=== PATIENT | male | born 1950 | race Caucasian/White ===

== ENCOUNTER 2019-09-15 08:03 | Outpatient (CLI) | payer MEDICARE, MEDICAID, SELFPAY ==
--- NOTE | ~2019-09-15 | CT_ITS ---
EXAMINATION: CT chest abdomen pelvis w con EXAM DATE: 09/15/2019 09:01 INDICATION: Lung cancer. Liver metastasis, history of mediastinal lymphadenopathy. TECHNIQUE: Spiral CT of the chest, abdomen and pelvis was performed following intravenous injection o f 100 mL Omnipaque 350. Axial, coronal and sagittal images were reviewed. Coronal maximum intensity pixel images of chest reviewed. The dose-length product (DLP) for this examination was 574.44 mGy-c m. The exposure was tailored according to patient size (auto mA exposure control), and iterative rec onstruction (ASIR) was used as additional dose reduction technique. There is no prior study for jamir raymundo. FINDINGS: CHEST: There is a right-sided Chemo-Port. Again there is left right upper lobe predominantly linear opacities, with infiltrative appearance into the left hilum, appearance consistent with treated lung cancer. Chronic lung mosaic attenuation and peripheral reticular nodular opacities and interlobular s eptal thickening unchanged, could be chronic interstitial lung disease and/or hypersensitivity pneumo nitis. There are no pleural or pericardial effusions. Tracheobronchial tree is patent. There is no mediastinal, hilar or axillary lymphadenopathy. There is no pneumothorax. Heart normal in size . There is mild coronary arterial calcification, arterial sclerosis. ABDOMEN PELVIS: Previously seen right liver lobe previously biopsied metastatic lesion is less conspi cuous, has decreased in size from about 1.4 cm to about 0.8 cm. Spleen, pancreas, adrenal glands are unremarkable. Gallbladder is unremarkable. No biliary obstruction. Portal and splenic veins are pa tent. Kidneys enhance symmetrically. There is no hydronephrosis. There is mild prostatomegaly. Th e bladder is unremarkable. There is no retroperitoneal or pelvic lymphadenopathy. There is mild sc attered arteriosclerotic disease. The appendix is normal. The stomach and small bowel are unremarkable. There is extensive sigmoid pre dominant colonic diverticulosis. There is no adjacent inflammatory change to suggest diverticulitis. No free intraperitoneal gas. There are no osteoblastic or osteolytic lesions identified. IMPRESSION: 1. Stable left lung, infiltrative hilar opacities consistent with treated lung cancer. 2. Small right liver lobe lesion with decrease in size. 3. Chronic lung findings unchanged. 4. Colonic diverticulosis. Reviewed, dictated and finalized at location A. SHER SCREWDOWN
[2019-09-15 08:47] LABS: Blood Urea Nitrogen 17 mg/dL (8-26); Estimated Glomerular Filt Rate > 60
== END 2019-09-15 08:04 | disposition home or self-care (01) ==
LOC: ANHIMG 08:07
PROVIDERS: PCP Internal Medicine; Visit Provider Internal Medicine Medical Oncology
DX: C34.92 Malignant neoplasm of unspecified part of left bronchus or lung (principal); K57.30 Diverticulosis of large intestine without perforation or abscess without bleeding; R91.8 Other nonspecific abnormal finding of lung field
CPT/HCPCS: 71260; 74177; Q9967

== ENCOUNTER 2019-12-06 06:39 | Outpatient (CLI) | payer MEDICARE, MEDICAID, SELFPAY ==
--- NOTE | ~2019-12-06 | CT_ITS ---
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 The dose-length product (DLP) was 512.07 mGy-cm. Automated exposure control and iterative reconstruction technique were employed. COMPARISON: 09/15/2019, 04/26/2019 FINDINGS: CHEST CT: There are chronic, unchanged reticular opacities in the left upper lobe and left perihilar region wit h associated bronchiectasis. There is an unchanged 5 mm nodule of the right upper lobe. Scattered bob cified nodules are consistent with old granulomatous disease. There is mild emphysema. Dependent atel ectasis is noted. A right internal jugular Port-A-Cath ends with its tip in the proximal right atrium . ABDOMEN/PELVIS CT: A 1.2 x 0.7 cm hypoattenuating lesion of the right hepatic lobe has an appearance similar to the 2019 comparison (image 121). Punctate calcifications in the liver and spleen likely reflect old granuloma tous disease. The pancreas, gallbladder, and adrenal glands are normal. The kidneys are unremarkable. No pathologically enlarged abdominal or pelvic lymph nodes are identified. There is no free intraper itoneal gas or evidence of bowel obstruction. Colonic diverticulosis is present without evidence of d iverticulitis. A circumaortic left renal vein is noted. There is moderate lumbar spondylosis. There i s a small fat-containing umbilical hernia. IMPRESSION: 1. Stable chronic changes of left upper lobe consistent with treated malignancy. 2. Chronic right hepatic lobe mass without significant change, consistent with biopsy-proven metastat ic disease. Reviewed, dictated and finalized at location A. IMPRESSION: 1. Stable chronic changes of left upper lobe consistent with treated malignancy . 2. Chronic right hepatic lobe mass without significant change, consistent with biopsy-proven metastatic disease.
[2019-12-06 07:12] LABS: Estimated Glomerular Filt Rate > 60
== END 2019-12-06 06:40 | disposition home or self-care (01) ==
LOC: ANHIMG 06:47
PROVIDERS: PCP Internal Medicine; Visit Provider Internal Medicine Medical Oncology
DX: C34.92 Malignant neoplasm of unspecified part of left bronchus or lung (principal); C78.7 Secondary malignant neoplasm of liver and intrahepatic bile duct; R16.0 Hepatomegaly, not elsewhere classified
CPT/HCPCS: 36415; 71260; 74177; Q9967

== ENCOUNTER 2020-03-02 06:30 | Outpatient (CLI) | payer MEDICARE, MEDICAID, SELFPAY ==
--- NOTE | ~2020-03-02 | CT_ITS ---
EXAMINATION: CT chest abdomen pelvis w con DATE: 03/02/2020 07:28 INDICATION: Restaging small cell left lung carcinoma TECHNIQUE: Computed tomography (CT) of the chest, abdomen, and pelvis was performed with 100 cc Omnip aque 350 intravenous contrast. Automated exposure control and iterative reconstruction technique were employed. Exam dose: 476.51 mGy-cm total exam DLP. COMPARISON: 12/06/2019 CT chest abdomen pelvis FINDINGS: CHEST CT: Right Port-A-Cath catheter in superior vena cava, terminating at upper right atrium. The lungs are unchanged since 12/06/2019, including extensive left upper lobe and left perihilar scarr ing. Mild emphysematous changes are noted. Stable 5 mm right upper lobe opacity. Mild chronic patchy groundglass density in the lower lobes, likely due to small airways disease. [employer]ified [employer]ician rosa increased reticular markings of the lungs. No interval pulmonary infiltrate or consolidation or pulmonary mass lesion since 12/06/2019 is detecte d. No interval hilar or mediastinal mass lesion or lymphadenopathy. Again noted is evidence of old pulmo nary granulomatous disease as well as calcified hepatic and splenic granulomas. No thoracic aortic aneurysm or dissection. Normal heart size. No pericardial or pleural effusion. ABDOMEN/PELVIS CT: No interval change of the proximal a 7 x 12 mm hypoattenuating lesion of the right hepatic lobe since 12/06/2019. No interval hepatic space-occupying mass lesion is evident. Normal adrenal glands. The gallbladder is present. No bile duct or pancreatic duct dilatation. No hackett creatic mass lesion or calcification. Normal splenic size. No renal mass lesion or urinary tract calculus or hydroureteronephrosis. The urinary bladder is unrem arkable. There is prostate enlargement and calcification. Normal caliber of the abdominal aorta. No intraperitoneal or retroperitoneal or pelvic mass lesion or adenopathy or ascites. There are numerous diverticula of the sigmoid and descending colon and to a lesser extent right colon . No evidence of diverticulitis. Normal appendix. No bowel obstruction, bowel wall thickening, pneuma tosis or intraperitoneal free air. IMPRESSION: No significant change since 12/06/2019; no evidence of recurrence or new or increased met astasis Reviewed, dictated and finalized at Location A. Reviewed, dictated and finalized at location B. IMPRESSION: No significant change since 12/06/2019; no evidence of recurrence o r new or increased metastasis
[2020-03-02 07:16] LABS: Estimated Glomerular Filt Rate > 60
== END 2020-03-02 06:31 | disposition home or self-care (01) ==
PROVIDERS: PCP Internal Medicine; Visit Provider Internal Medicine Medical Oncology
DX: C34.92 Malignant neoplasm of unspecified part of left bronchus or lung (principal)
CPT/HCPCS: 36415; 71260; 74177; Q9967

== ENCOUNTER 2020-03-22 14:44 | Emergency (ER) | payer MEDICARE, MEDICAID, SELFPAY ==
--- NOTE | ~2020-03-22 | CT_ITS ---
EXAMINATION: CT abdomen pelvis wo con DATE: 03/22/2020 18:07 INDICATION: Dysuria. Urinary retention. TECHNIQUE: Computed tomography (CT) of the abdomen and pelvis was performed without intravenous contr ast. The dose-length product was 380.37 mGy-cm. Automated exposure control and iterative reconstructi on technique were employed. COMPARISON: 03/02/2020 FINDINGS: Patchy groundglass opacities of the lung bases. Heart size normal. No significant pleural o r pericardial effusion. There are calcified granulomas in the liver and spleen. The pancreas, adrenal glands and kidneys are unremarkable. Gallbladder is present. There is mildly pr ominent retroperitoneal lymph nodes unchanged, likely reactive. Nonobstructive bowel gas pattern. Enl arged prostate gland. Colonic diverticulosis without evidence for diverticulitis. Normal appendix. Mo derate lower thoracic and lumbar spine spondylosis. IMPRESSION: 1. Patchy bibasilar groundglass opacities. Considerations include infectious/inflammatory etiologies and respiratory bronchiolitis. 2: Mildly prominent retroperitoneal lymph nodes, likely reactive. Reviewed, dictated and finalized at location A. IMPRESSION: 1. Patchy bibasilar groundglass opacities. Considerations include infectious/in flammatory etiologies and respiratory bronchiolitis. 2: Mildly prominent retroperitoneal lymph nodes, likely reactive.
[2020-03-22 14:46] VITALS: BP 123/64; PULSE 102; RESP 18; TEMP 36.2; O2SAT 98
[2020-03-22 15:39] LABS: Basophils Percent Auto 0.5 % (0.2-1.2); Eosinophils Absolute Auto 0.1 K/mm3 (0-0.3); Eosinophils Percent Auto 1.1 % (0-4.4); Hematocrit 39.8 % (42.0-52.0); Hemoglobin 14.1 g/dL (14.0-18.0); Immature Granulocyte Absolute 0.01 K/mm3 (0.00-0.031); Immature Granulocyte Percent A 0.2 % (0-0.5); Lymphocytes Absolute Auto 0.75 K/mm3 (0.9-3.2); Lymphocytes Percent Auto 13.4 % (18.3-44.2); Mean Corpuscular HGB Conc 35.4 g/dl (32-36); Mean Corpuscular Hemoglobin 32.6 pg (26-34); Mean Corpuscular Volume 92.1 fl (80-100); Mean Platelet Volume 9.1 fl (7.4-10.4); Monocytes Absolute Auto 0.7 K/mm3 (0.1-0.6); Monocytes Percent Auto 11.6 % (2.6-8.5); Neutrophils Absolute Auto 4.1 K/mm3 (1.3-6.7); Neutrophils Percent Auto 73.2 % (45.5-73.1); Platelet Count Result 140 k/mm3 (150-375); Red Blood Count 4.32 M/mm3 (4.6-6.20); Red Cell Distribution Width 12.6 % (11.5-14.5); White Blood Count 5.6 K/mm3 (4.5-10.0)
--- NOTE | 2020-03-22 16:26 | PC.NURSE ---
called lab to add on
[2020-03-22 16:34] LABS: Add Urine Microscopic? YES; Appearance Urine Clear (Clear); Bilirubin Urine Negative (Negative); Blood Urine 2+ (Negative); Color Urine Yellow (Yellow); Glucose Urine UA Negative (Negative); Ketones Urine Negative (Negative); Leukocyte Esterase Ur Trace LEU/UL (Negative); Mucus Urine Moderate /lpf; Nitrate Urine Negative (Negative); Protein Urine 1+ mg/dL (Negative); RBC Urine >75 /hpf (0-2); Specific Grav Ur 1.027 (1.001-1.035); Squamous Epithelial Cell Urine Rare /hpf (Few); WBC Urine 21-30 /hpf
[2020-03-22 16:36] LABS: Alanine Aminotransferase 11 U/L (4-50); Alkaline Phosphatase 81 U/L (38-126); Anion Gap 11 mmol/L (8-16); Aspartate Amino Transferase 20 U/L (17-59); Bilirubin,Total 0.3 mg/dL (0.2-1.3); Blood Urea Nitrogen 21 mg/dL (9-20); Carbon Dioxide 24 mmol/L (22-30); Chloride 98 mmol/L (98-107); Estimated CRCL calculation 48 ml/min; Estimated Glomerular Filt Rate 60; Glucose 118 mg/dL (75-110); Potassium 3.9 mmol/L (3.4-5.0); Sodium 133 mmol/L (137-145)
[2020-03-22] MEDS: SODIUM CHLORIDE 0.9% IV 1,000 ML 999 ML IV CONT (16:36)
--- NOTE | 2020-03-22 16:52 | ED.ABDPAIN ---
HPI - Abdominal Pain General Chief Complaint: Urogenital-Male <TANNER Nunes Last Filed: 03/22/20 18:56> Stated Complaint: painful urination <TANNER Nunes Last Filed: 03/22/20 18:56> Time Seen by Provider: 03/22/20 15:04 <TANNER Nunes Last Filed: 03/22/20 18:56> Source: patient <TANNER Nunes Last Filed: 03/22/20 18:56> Mode of arrival: ambulatory <TANNER Nunes Last Filed: 03/22/20 18:56> Limitations: no limitations <TANNER Nunes Last Filed: 03/22/20 18:56> History of Present Illness HPI narrative: Patient is a 69-year-old male who presents to emergency department for burning with urination that is been present today was diagnosed with shingles involving the penis and scrotum and is currently on medications for this but notes now whenever he urinates he has extreme burning with urination. Patient is also currently being treated for small cell lung cancer with chemotherapy. Patient denies fever chills nausea vomiting. Patient has been taking the pain medications antivirals with minimal improvement and notes that the symptoms worse with urination <TANNER Nunes Last Filed: 03/22/20 18:56> Related Data Home Medications: Home Medications Medication Instructions Recorded Confirmed bupropion HCl 150 mg PO DAILY 03/22/20 ondansetron HCl 4 mg PO Q8H PRN 03/22/20 tamsulosin 0.4 mg PO DAILY 03/22/20 temozolomide 140 mg PO DAILY 03/22/20 tramadol 50 mg PO Q8H PRN 03/22/20 valacyclovir 1,000 mg PO TID 03/22/20 <TANNER Nunes Last Filed: 03/22/20 18:56> Allergies/Adverse Reactions: Allergies Allergy/AdvReac Type Severity Reaction Status Date / Time oxycodone AdvReac Unknown Itching Verified 03/22/20 14:58 <TANNER Nuens Last Filed: 03/22/20 18:56> Review of Systems Review of Systems: All systems reviewed & are unremarkable except as noted in HPI and below <Ti Awad PA-C - Last Filed: 03/22/20 18:56> [facility] Past Medical History Medical History: Medical History Small cell lung cancer <Ti Awad PA-C - Last Filed: 03/22/20 18:56> Social History Social History: Social History (Updated 03/22/20 @ 16:53 by Ti Awad PA-C) Smoking status: Former smoker <Ti Awad PA-C - Last Filed: 03/22/20 18:56> Exam Narrative: Exam Narrative: GENERAL: Well-appearing, well-nourished, and in no acute distress. HEAD: Normocephalic, atraumatic. EYES: PERRLA and EOMI. ENT: Nares clear, no rhinorrhea or epistaxis. Mucous membranes moist. CHEST: Clear to auscultation. No respiratory distress. No wheezes rales or rhonchi HEART: Regular rate and rhythm. No murmur heard. Normal peripheral pulses. ABDOMEN: Soft, nontender, nondistended EXTREMITIES: Normal range of motion. No edema. SKIN: Warm, dry, patient with herpetic rash of the scrotum penis and perianal region NEURO: No focal deficits. Alert and oriented x3. Cranial nerves II through XII grossly intact PSYCH: Normal mood and affect. <Ti Awad PA-C - Last Filed: 03/22/20 18:56> Course Course Emergency Course: Patient in the room at this time resting comfortably aware of case findings treatment plan and diagnosis agreeing to follow-up with primary care tomorrow and oncology patient currently in the room in no distress afebrile nontoxic-appearing given instructions on pain management for his shingles as well as constipation and urinary tract infection provided with reasons to return <Ti Awad PA-C - Last Filed: 03/22/20 18:56> Vital Signs Vital signs: Vital Signs Temperature 97.2 F L 03/22/20 14:46 Pulse Rate 102 H 03/22/20 14:46 Respiratory Rate 18 03/22/20 14:46 Blood Pressure 123/64 03/22/20 14:46 Pulse Oximetry 98 03/22/20 14:46 Temperature 97.2 F L 03/22/20 14:46
[2020-03-22 18:30] VITALS: PULSE 80; RESP 20; O2SAT 98
[2020-03-22 19:29] VITALS: BP 116/74; PULSE 82; RESP 20; O2SAT 98
== END 2020-03-22 19:31 | disposition home or self-care (01) ==
PROVIDERS: Emergency Medicine Emergency Medical Services; Emergency Provider General Practice; PCP Internal Medicine
DX: N39.0 Urinary tract infection, site not specified (principal); B02.9 Zoster without complications; Z85.118 Personal history of other malignant neoplasm of bronchus and lung
CPT/HCPCS: 36415; 74176; 80053; 81001; 85025; 87086; 96361; 96365; 99284; J0131; J7030

== ENCOUNTER 2020-03-25 22:59 | Emergency (ER) | payer MEDICARE, MEDICAID, SELFPAY ==
[2020-03-25 23:04] VITALS: BP 122/72; PULSE 94; RESP 20; TEMP 36.4; O2SAT 98
[2020-03-25 23:22] LABS: Add Urine Microscopic? YES; Appearance Urine Clear (Clear); Bacteria Urine Trace /hpf; Bilirubin Urine Negative (Negative); Blood Urine Negative (Negative); Color Urine Amber (Yellow); Glucose Urine UA Negative (Negative); Ketones Urine Negative (Negative); Leukocyte Esterase Ur Negative LEU/UL (Negative); Mucus Urine Rare /lpf; Nitrate Urine Positive (Negative); Protein Urine Negative (Negative); Specific Grav Ur 1.011 (1.001-1.035); Squamous Epithelial Cell Urine Rare /hpf (Few); WBC Urine 0-3 /hpf
[2020-03-26 00:09] VITALS: BP 126/76; PULSE 75; RESP 20; O2SAT 100
--- NOTE | 2020-03-26 01:18 | ED.MALEGU ---
HPI - Male Genitourinary General Chief complaint: Urogenital-Male Stated complaint: shingles, uti Time Seen by Provider: 03/26/20 01:01 Source: patient Mode of arrival: ambulatory Limitations: no limitations History of Present Illness HPI Narrative: This patient is a 69 year old male who presents for evaluation of difficulty urinating. He reports he has been having difficulty urinating for 5 days . He is having to strain to urinate and he is only urinating a small amount. He is able to get more urine out if he pushes on his abdomen. He has been unable to sleep because he is constantly having to get up to use the restroom. He is burning with urination so he has having worsening pain. He was diagnosed with shingles involving his scrotum and rectum. He also states his abdomen feels bloated. He denies fever or chills. He also had a BM today. Related Data Home Medications Medication Instructions Recorded Confirmed bupropion HCl 150 mg PO DAILY 03/22/20 ondansetron HCl 4 mg PO Q8H PRN 03/22/20 tamsulosin 0.4 mg PO DAILY 03/22/20 temozolomide 140 mg PO DAILY 03/22/20 tramadol 50 mg PO Q8H PRN 03/22/20 valacyclovir 1,000 mg PO TID 03/22/20 Allergies Allergy/AdvReac Type Severity Reaction Status Date / Time oxycodone AdvReac Unknown Itching Verified 03/25/20 23:07 Review of Systems Review of Systems: All systems reviewed & are unremarkable except as noted in HPI and below Constitutional: Constitutional: Denies chills Gastrointestinal: Gastrointestinal: Reports abdominal pain and Reports constipation Genitourinary: Genitourinary: Denies hematuria, Reports oliguria and Reports testicular pain [facility] Past Medical History Medical History (Updated 03/26/20 @ 02:26 by Teresa Mathur MD) Small cell lung cancer Surgical History Surgical History (Updated 03/26/20 @ 01:26 by Teresa Mathur MD) Hx of knee surgery Social History Social History (Updated 03/22/20 @ 16:53 by Ti Awad PA-C) Smoking status: Former smoker Exam Const: General: cooperative, healthy appearing, alert, awake, Physically active and uncomfortable Orientation/consciousness: oriented to person, oriented to place and oriented to time Limitations: no limitations HENMT: Head: normocephalic and atraumatic Face and sinus: face symmetric Throat: posterior oropharynx normal Chest: Chest palpation & inspection: normal inspection of the chest Resp: Effort & Inspection: normal respiratory effort and able to speak in complete sentences GI: GI Palp: Yes abdominal tenderness, Yes Soft to palpation and Yes Tenderness to palpation present (GI) (suprapubic with distended bladder) : Penis: Yes vesicles (on penile shaft and on scrotum) Meatus: meatus normal Course Reevaluation(s) Reevaluation #1: PAtient reports he feels better. His pain has resolved after lal catheter placement. He will continue keflex, flomax and valtrex. I also discussed he will follow up with a urologist. Date: 03/26/20 Time: 02:23 Vital Signs Vital signs: Vital Signs Temperature 97.5 F L 03/25/20 23:04 Pulse Rate 94 03/25/20 23:04 Respiratory Rate 20 03/25/20 23:04 Blood Pressure 122/72 03/25/20 23:04 Pulse Oximetry 98 03/25/20 23:04 Temperature 97.5 F L 03/25/20 23:04 Pulse Rate 72 03/26/20 02:39 Respiratory Rate 14 03/26/20 02:39 Blood Pressure 128/66 03/26/20 02:39 Pulse Oximetry 98 03/26/20 02:39 MDM - Male Genitourinary Lab Data Labs: Lab Results 03/25/20 Range/Units 23:10 Urine Color Yvonne (Yellow) Urine Appearance Clear (Clear) Urine pH 6.0 (5.0-9.0) Ur Specific [place] 1.011 (1.001-1.035) Urine Protein Negative (Negative) mg/dL Urine Glucose (UA) Negative (Negative) mg/dL Urine Ketones Negative (Negative) mg/dL Ur Blood (Man) Negative (Negative) Urine Nitrate Positive H (Negative) Urine Bilirubin Negative (Negative) Urine Urobilinogen 2.0 H (<2
[2020-03-26 01:57] VITALS: BP 124/68; PULSE 88; RESP 15; O2SAT 97
[2020-03-26] MEDS: ONDANSETRON HCL ODT 4 MG TABLET PO (01:57)
[2020-03-26 02:39] VITALS: BP 128/66; PULSE 72; RESP 14; O2SAT 98
--- NOTE | 2020-03-26 02:40 | PC.NURSE ---
total of 1200 ml drained via catheter pt reports relief
--- NOTE | 2020-03-26 02:53 | PC.NURSE ---
leg bag attached prior to leaving ED, instructions given to the pt agreeable to follow up with dr gordon on friday
== END 2020-03-26 02:40 | disposition home or self-care (01) ==
PROVIDERS: Family Medicine; Emergency Provider General Practice; PCP Internal Medicine
DX: R33.9 Retention of urine, unspecified (principal); B02.9 Zoster without complications; Z87.891 Personal history of nicotine dependence; Z85.118 Personal history of other malignant neoplasm of bronchus and lung
CPT/HCPCS: 51702; 81001; 99283; A9270

== ENCOUNTER 2020-04-06 12:12 | Emergency (ER) | payer MEDICARE, MEDICAID, SELFPAY ==
[2020-04-06] VITALS (7 sets, daily range): BP systolic 108–128; BP diastolic 55–87; PULSE 71–90; RESP 14–27; TEMP 36.9; O2SAT 100
--- NOTE | ~2020-04-06 | XR_ITS ---
XR chest 2V DATE: 04/06/2020 13:04 INDICATION: Weakness. Nausea. TECHNIQUE: Upright AP and left lateral views COMPARISON: 03/02/2020 CT chest abdomen pelvis FINDINGS: Right Port-A-Cath catheter tip overlies the upper right atrium. Prominent discoid atelectasis and/or scarring of the left upper lobe. There is otherwise no pulmonary infiltrate or consolidation. No pleural effusion or pulmonary vascular congestion or pneumothorax. Degenerative changes of the thoracic spine. No suspicious osteolytic or osteoblastic lesions are iden tified. IMPRESSION: Probable left upper lobe scarring; atelectasis, infiltrate or pulmonary malignancy are no t definitively excluded. Consider PET/CT imaging as clinically appropriate. Reviewed, dictated and finalized at location A. IMPRESSION: Probable left upper lobe scarring; atelectasis, infiltrate or pulmo nary malignancy are not definitively excluded. Consider PET/CT imaging as clini sergei appropriate.
--- NOTE | ~2020-04-06 | CT_ITS ---
EXAMINATION: CT abdomen pelvis w con DATE: 04/06/2020 14:15 INDICATION: Left abdominal tenderness, pain TECHNIQUE: Computed tomography (CT) of the abdomen and pelvis was performed with 100 cc Omnipaque 350 intravenous contrast. Automated exposure control and iterative reconstruction technique were employe d. Exam dose: 371.05 mGy-cm total exam DLP. COMPARISON: 03/22/2020 CT abdomen pelvis FINDINGS: Normal heart size. Coronary artery atherosclerotic calcification. No pleural or pericardial effusion. No consolidation at the lung bases. There are numerous calcified hepatic and splenic granulomas consistent with old granulomatous disease in addition to bilateral calcified pulmonary granulomas and hilar and subcarinal calcified lymph nod es. There are occasional scattered subcentimeter hepatic lesions, too small to definitively characterize, likely small cysts. The liver, spleen, pancreas, and adrenal glands and kidneys are otherwise unremarkable. The gallbladd er is present. No bile duct or pancreatic duct dilatation. Normal caliber of the abdominal aorta. No intraperitoneal or retroperitoneal or pelvic mass lesion or adenopathy or ascites. Normal appendix. There are numerous diverticula of the sigmoid and descending colon; no CT evidence of diverticulitis. There is prostate enlargement. There is diffuse thickening of the urinary bladder, likely due to blad alana outlet obstruction as a result. There is normal caliber of the abdominal aorta. No intraperitoneal or retroperitoneal or pelvic mass lesion or adenopathy or ascites. There are degenerative changes of the thoracic and lumbar spine. No suspicious osteolytic or osteobl astic lesions are noted. IMPRESSION: Old granulomatous disease Probable small hepatic cysts, too small to definitively characterize Diverticulosis of the left colon; no CT evidence of diverticulitis Diffuse moderate thickening and urinary bladder wall, likely due to prostate enlargement Reviewed, dictated and finalized at Location A. Reviewed, dictated and finalized at location A. IMPRESSION: Old granulomatous disease Probable small hepatic cysts, too small to definitively characterize Diverticulosis of the left colon; no CT evidence of diverticulitis Diffuse moderate thickening and urinary bladder wall, likely due to prostate en largement
--- NOTE | 2020-04-06 12:14 | ECG_ITS ---
Measurements Intervals [place] Rate: 84 P: 68 MT: 170 QRS: 6 QRSD: 92 T: 49 QT: 339 QTc: 401 Interpretive Statements SINUS RHYTHM INCOMPLETE RIGHT BUNDLE BRANCH BLOCK BORDERLINE ECG Electronically Signed On 04-06-2020 12:56:27 CDT by Garret Davis D.O.
--- NOTE | 2020-04-06 12:32 | ED.WEAKNESS ---
HPI - Weakness General Chief complaint: Weakness Stated complaint: Nausea/Weakness Time Seen by Provider: 04/06/20 12:17 Source: patient and family Mode of arrival: ambulatory Limitations: no limitations History of Present Illness HPI Narrative: This patient is a 69 year old male with history small cell lung cancer who presents with complaint of generalized weakness and nausea. He states for the past couple of weeks he has been having constant nausea, so he is unable to eat or drink. He called Dr. Prabhakar and it was recommended for him to come to ER for dehydration. He states he only vomited a few days ago but he has not had any vomiting since. He has not had a bowel movement in 3 days. HE denies abdominal pain, chest pain, cough or sob. He also denies headache or dizziness. He is performing straight catheterization 3 times daily due to urinary retention with BPH. He had a lal catheter placed 03/26/20 and it was removed 04/03/20. Related Data Home Medications Medication Instructions Recorded Confirmed bupropion HCl 150 mg PO DAILY 03/22/20 ondansetron HCl 4 mg PO Q8H PRN 03/22/20 tamsulosin 0.4 mg PO DAILY 03/22/20 temozolomide 140 mg PO DAILY 03/22/20 tramadol 50 mg PO Q8H PRN 03/22/20 valacyclovir 1,000 mg PO TID 03/22/20 pantoprazole 40 mg PO 04/06/20 Allergies Allergy/AdvReac Type Severity Reaction Status Date / Time oxycodone AdvReac Unknown Itching Verified 03/25/20 23:07 Review of Systems Review of Systems: All systems reviewed & are unremarkable except as noted in HPI and below Constitutional: Constitutional: Denies chills, Reports fatigue and Denies fever(s) Cardiovascular: Cardiovascular: Denies chest pain Respiratory: Respiratory: Denies cough and Denies dyspnea Gastrointestinal: Gastrointestinal: Denies abdominal pain, Reports constipation, Reports nausea and Reports vomiting Genitourinary: Genitourinary: Denies oliguria and Reports genital lesions PMFSH Past Medical History Medical History (Updated 04/06/20 @ 15:19 by Teresa Mathur MD) Small cell lung cancer Urinary retention Surgical History Surgical History (Updated 03/26/20 @ 01:26 by Tereas Mathur MD) Hx of knee surgery Social History Social History (Updated 03/22/20 @ 16:53 by Ti Awad PA-C) Smoking status: Former smoker Gender identity (if verbalized by the patient): Male Exam Const: General: no acute distress and alert Orientation/consciousness: patient oriented x3 HENMT: Head: normocephalic and atraumatic Face and sinus: face symmetric Throat: posterior oropharynx normal, tonsils normal and uvula midline Eyes: EOM: EOMs intact bilaterally Resp: Effort & Inspection: normal respiratory effort, no retractions and no use of accessory muscles Auscultation: clear to auscultation bilaterally Cardio: Rate: regular rate Rhythm: regular rhythm Heart sounds: no murmurs GI: GI Palp: Yes Soft to palpation, Yes Tenderness to palpation present (GI) (LUQ ), No Guarding due to palpation present (GI) and No Rigid due to palpation : General: Yes no CVA tenderness Neuro: General: patient oriented x3, moves all extremities and CN's II-XI intact bilaterally Extrem: General: normal to inspection Psych: Mental Status: mental status grossly normal Affect: normal affect Course Reevaluation(s) Reevaluation #1: PAtient reports he feels better. He has no fever or elevated wbc. He does have a UTI so I will place on antibiotics. Date: 04/06/20 Time: 15:16 Consultations Consultation #1: I Discussed case with Dr. Mccoy who agrees patient can continue to self cath and send out on antibiotics. Date: 04/06/20 Time: 15:17 Vital Signs Vital signs: Vital Signs Temperature 98.4 F 04/06/20 12:16 Pulse Rate 86 04/06/20 12:16 Respiratory Rate 14 04/06/20 12:16 Blood Pressure 116/76 04/06/20 12:16 Pulse Oximetry 100 04/06/20 12:16 Temperature 98.4 F 04/06/20
[2020-04-06 12:33] LABS: Basophils Absolute Auto 0.1 K/mm3 (0.0-0.1); Basophils Percent Auto 0.8 % (0.2-1.2); Eosinophils Absolute Auto 0.3 K/mm3 (0-0.3); Hematocrit 39.4 % (42.0-52.0); Hemoglobin 13.6 g/dL (14.0-18.0); Immature Granulocyte Absolute 0.04 K/mm3 (0.00-0.031); Immature Granulocyte Percent A 0.4 % (0-0.5); Lymphocytes Absolute Auto 0.92 K/mm3 (0.9-3.2); Lymphocytes Percent Auto 10.2 % (18.3-44.2); Mean Corpuscular HGB Conc 34.5 g/dl (32-36); Mean Corpuscular Hemoglobin 32.3 pg (26-34); Mean Corpuscular Volume 93.6 fl (80-100); Mean Platelet Volume 8.9 fl (7.4-10.4); Monocytes Absolute Auto 0.6 K/mm3 (0.1-0.6); Monocytes Percent Auto 6.1 % (2.6-8.5); Neutrophils Absolute Auto 7.2 K/mm3 (1.3-6.7); Neutrophils Percent Auto 79.5 % (45.5-73.1); Platelet Count Result 176 k/mm3 (150-375); Red Blood Count 4.21 M/mm3 (4.6-6.20); Red Cell Distribution Width 12.9 % (11.5-14.5)
[2020-04-06 12:47] LABS: Alanine Aminotransferase 12 U/L (4-50); Alkaline Phosphatase 82 U/L (38-126); Anion Gap 6 mmol/L (8-16); Aspartate Amino Transferase 15 U/L (17-59); Bilirubin,Total 0.5 mg/dL (0.2-1.3); Blood Urea Nitrogen 16 mg/dL (9-20); Calcium 9.2 mg/dL (8.4-10.2); Carbon Dioxide 27 mmol/L (22-30); Chloride 102 mmol/L (98-107); Estimated CRCL calculation 64 ml/min; Estimated Glomerular Filt Rate > 60; Glucose 119 mg/dL (75-110); Potassium 3.7 mmol/L (3.4-5.0); Sodium 135 mmol/L (137-145)
[2020-04-06] MEDS: ONDANSETRON INJ 4 MG/2 ML VIAL IV PUSH (12:52)
[2020-04-06] MEDS: LACTATED RINGERS 1,000 ML 999 ML IV CONT (12:52)
[2020-04-06 13:02] LABS: Lipase 119 U/L (23-300); Magnesium 1.8 mg/dL (1.6-2.3)
[2020-04-06 13:04] LABS: Add Urine Microscopic? YES; Appearance Urine Cloudy (Clear); Bacteria Urine Trace /hpf; Bilirubin Urine Negative (Negative); Blood Urine 1+ (Negative); Color Urine Yellow (Yellow); Glucose Urine UA Negative (Negative); Ketones Urine Negative (Negative); Leukocyte Esterase Ur 3+ LEU/UL (Negative); Nitrate Urine Negative (Negative); Protein Urine 2+ mg/dL (Negative); RBC Urine 51-75 /hpf (0-2); Specific Grav Ur 1.016 (1.001-1.035); Squamous Epithelial Cell Urine Rare /hpf (Few); Urobilinogen Urine Negative mg/dL (<2.0); WBC Clumps Urine Present /HPF; WBC Urine >75 /hpf
[2020-04-06] MEDS: PROMETHAZINE HCL 25 MG/ML AMPUL 12.5 MG IV PUSH (13:34)
[2020-04-06] MEDS: HEPARIN SOD FLUSH 500 UNITS/5 ML SYRINGE (15:42)
== END 2020-04-06 16:15 | disposition home or self-care (01) ==
PROVIDERS: Emergency Medicine; Emergency Provider General Practice; PCP Internal Medicine
DX: N30.90 Cystitis, unspecified without hematuria (principal); R11.0 Nausea; N40.1 Benign prostatic hyperplasia with lower urinary tract symptoms; R33.8 Other retention of urine; Z87.891 Personal history of nicotine dependence; Z85.118 Personal history of other malignant neoplasm of bronchus and lung
CPT/HCPCS: 36415; 51701; 71046; 74177; 80053; 81001; 83690; 83735; 85025; 87086; 87088; 93005; 96361; 96365; 96375; 99284; J0696; J2405; J2550; J7120; Q9967

== ENCOUNTER 2020-06-12 08:03 | Outpatient (CLI) | payer MEDICARE, MEDICAID, SELFPAY ==
[2020-06-12 08:50] LABS: Basophils Absolute Auto 0.1 K/mm3 (0.0-0.1); Basophils Percent Auto 1.2 % (0.2-1.2); Eosinophils Absolute Auto 0.4 K/mm3 (0-0.3); Eosinophils Percent Auto 7.6 % (0-4.4); Hemoglobin 13.4 g/dL (14.0-18.0); Immature Granulocyte Absolute 0.02 K/mm3 (0.00-0.031); Immature Granulocyte Percent A 0.4 % (0-0.5); Lymphocytes Absolute Auto 1.06 K/mm3 (0.9-3.2); Lymphocytes Percent Auto 21.2 % (18.3-44.2); Mean Corpuscular HGB Conc 34.4 g/dl (32-36); Mean Corpuscular Hemoglobin 32.6 pg (26-34); Mean Corpuscular Volume 94.9 fl (80-100); Mean Platelet Volume 9.2 fl (7.4-10.4); Monocytes Absolute Auto 0.5 K/mm3 (0.1-0.6); Monocytes Percent Auto 9.4 % (2.6-8.5); Neutrophils Percent Auto 60.2 % (45.5-73.1); Platelet Count Result 191 k/mm3 (150-375); Red Blood Count 4.11 M/mm3 (4.6-6.20); Red Cell Distribution Width 13.7 % (11.5-14.5)
[2020-06-12 09:06] LABS: Alanine Aminotransferase 11 U/L (4-50); Alkaline Phosphatase 88 U/L (38-126); Anion Gap 5 mmol/L (8-16); Aspartate Amino Transferase 17 U/L (17-59); Bilirubin,Total 0.5 mg/dL (0.2-1.3); Blood Urea Nitrogen 15 mg/dL (9-20); Calcium 9.4 mg/dL (8.4-10.2); Carbon Dioxide 31 mmol/L (22-30); Chloride 104 mmol/L (98-107); Cholesterol 159 mg/dL (0-200); Estimated Glomerular Filt Rate > 60; Glucose 88 mg/dL (75-110); HDL Direct 60 mg/dL; Potassium 3.6 mmol/L (3.4-5.0); Sodium 140 mmol/L (137-145); Triglycerides 122 mg/dL (<150)
[2020-06-12 09:17] LABS: LDL Cholesterol Direct 70 mg/dL
[2020-06-12 09:36] LABS: Prostate Specific Antigen 0.5 ng/mL (< OR = 4.0)
== END 2020-06-12 08:04 | disposition home or self-care (01) ==
PROVIDERS: PCP Internal Medicine; Referring Provider Internal Medicine Medical Oncology; Visit Provider Internal Medicine
DX: Z12.5 Encounter for screening for malignant neoplasm of prostate (principal); Z13.6 Encounter for screening for cardiovascular disorders; Z79.899 Other long term (current) drug therapy
CPT/HCPCS: 36415; 36592; 80053; 80061; 84153; 85025; G0103

== ENCOUNTER 2020-07-07 08:42 | Outpatient (CLI) | payer MEDICARE, MEDICAID, SELFPAY ==
--- NOTE | ~2020-07-07 | CT_ITS ---
EXAMINATION: CT chest abdomen pelvis w con DATE: 07/07/2020 09:34 INDICATION: Restaging small cell carcinoma left lung TECHNIQUE: Computed tomography (CT) of the chest, abdomen, and pelvis was performed with 100 cc Omnip aque 350 intravenous contrast. Automated exposure control and iterative reconstruction technique were employed. Exam dose: 618.61 mGy-cm total exam DLP. COMPARISON: 04/06/[address] abdomen pelvis 03/02/[address] chest abdomen pelvis CT chest abdomen pelvis FINDINGS: CHEST CT: Right Port-A-Cath catheter in superior vena cava. Chronic bilateral lung changes are noted, including particularly prominent chronic left upper lobe sc arring. Chronic changes also include increased reticular markings and patchy groundglass densities, r ight greater than left. There is old pulmonary granulomatous disease including bilateral calcified pulmonary granulomas and n umerous calcified hilar and mediastinal nodes. No interval pulmonary mass lesion is evident. Normal heart size. No pericardial or pleural effusion. No hilar or mediastinal mass lesion or lymphad enopathy. ABDOMEN/PELVIS CT: Calcified hepatic and splenic granulomas, consistent with old granulomatous disease. No hepatic, splenic, pancreatic, adrenal or renal space-occupying mass lesion is evident. The gallbla dder is present. No bile duct or pancreatic duct dilatation. Normal caliber of the abdominal aorta. No intraperitoneal or retroperitoneal or pelvic mass lesion or adenopathy or ascites. The urinary bladder is unremarkable. Prostate enlargement and calcifications. There are numerous diverticula of the sigmoid and descending colon; no CT evidence of diverticulitis. Normal appendix. No bowel obstruction, bowel wall thickening, pneumatosis or intraperitoneal free ai r. There is a prominent amount of fecal material within the colon. No suspicious osteolytic or osteoblastic lesions are noted. IMPRESSION: No significant new finding since 12/06/2019 Reviewed, dictated and finalized at [facility]. Reviewed, dictated and finalized at location A.
== END 2020-07-07 08:43 | disposition home or self-care (01) ==
PROVIDERS: PCP Internal Medicine; Visit Provider Internal Medicine Medical Oncology
DX: C34.92 Malignant neoplasm of unspecified part of left bronchus or lung (principal); C78.7 Secondary malignant neoplasm of liver and intrahepatic bile duct
CPT/HCPCS: 71260; 74177; Q9967

== ENCOUNTER 2020-09-29 06:42 | Outpatient (CLI) | payer MEDICARE, MEDICAID, SELFPAY ==
--- NOTE | ~2020-09-29 | CT_ITS ---
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 TECHNIQUE: Spiral CT of the chest, abdomen and pelvis was performed following intravenous injection o f 100 mL Omnipaque 350. Axial, coronal and sagittal images were reviewed. Coronal maximum intensity pixel images of chest reviewed. The dose-length product (DLP) for this examination was 554.78 mGy-c m. The exposure was tailored according to patient size (auto mA exposure control), and iterative rec onstruction (ASIR) was used as additional dose reduction technique. Comparison is made to prior exami nation from 07/07/2020. FINDINGS: CHEST: There is a right-sided Chemo-Port. There is left perihilar infiltrative opacity into the hilu m without measurable masslike region. Appearance is consistent with treated infiltrative malignancy a nd does not appear appreciably changed. No central pulmonary emboli. There are scattered regions of p ost infectious residua chronic lung mosaic attenuation probably small airways disease. Evidence of mi ld pulmonary fibrosis. There are no pleural or pericardial effusions. Tracheobronchial tree is bloom nt. There is no mediastinal, hilar or axillary lymphadenopathy. There is no pneumothorax. Heart normal in size. There is mild coronary arterial calcification, arterial sclerosis. ABDOMEN PELVIS: There is some liver calcifications. There is a vague subcentimeter right liver lobe h ypodensity inferiorly, some which could be treated metastatic disease. Gallbladder is unremarkable. No biliary obstruction. Portal and splenic veins are patent. Kidneys enhance symmetrically. There is no hydronephrosis. The prostate is unremarkable. The bladder is unremarkable. Scattered small retroperitoneal lymph nodes unchanged. There is mild scattered arteriosclerotic disease. The appendix is normal. There is extensive sigmoid colonic diverticulosis. There is no adjacent infl ammatory change to suggest diverticulitis. The stomach and small bowel are unremarkable. There is ex pected amount of colonic stool. No free intraperitoneal gas. There are no osteoblastic or osteoly tic lesions identified. IMPRESSION: 1. Treated left hilar infiltrative malignancy and liver metastatic lesions. Stable exam. 2. Sigmoid diverticulosis. 3. Chronic lung findings. Reviewed, dictated and finalized at location A. 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 Treated left hilar infiltrative malignancy and liver metastatic lesions. St able exam. 2. Sigmoid diverticulosis. 3. Chronic lung findings.
[2020-09-29 07:14] LABS: Estimated Glomerular Filt Rate > 60
== END 2020-09-29 06:43 | disposition home or self-care (01) ==
PROVIDERS: PCP Internal Medicine; Visit Provider Internal Medicine Medical Oncology
DX: C34.92 Malignant neoplasm of unspecified part of left bronchus or lung (principal); C78.7 Secondary malignant neoplasm of liver and intrahepatic bile duct; K57.30 Diverticulosis of large intestine without perforation or abscess without bleeding
CPT/HCPCS: 71260; 74177; Q9967

== ENCOUNTER 2020-12-26 07:32 | Outpatient (CLI) | payer MEDICARE, MEDICAID, SELFPAY ==
--- NOTE | ~2020-12-26 | CT_ITS ---
EXAMINATION: CT chest abdomen pelvis w con EXAM DATE: 12/26/2020 08:08 INDICATION: Lung cancer. TECHNIQUE: Spiral CT of the chest, abdomen and pelvis was performed following intravenous injection o f 100 mL Omnipaque 350. Axial, coronal and sagittal images chest, abdomen and pelvis were reviewed. Coronal maximum intensity pixel images of chest reviewed. The dose-length product (DLP) for this ex amination was 567.86 mGy-cm. The exposure was tailored according to patient size (auto mA exposure c ontrol), and iterative reconstruction (ASIR) was used as additional dose reduction technique. Compari son is made to prior examination from 09/29/2020. FINDINGS: CHEST: Again there is left hilar infiltrative soft tissue density, difficult to measure but insinuat ing throughout the hilar structures. Appearance is consistent with treated lung cancer and is not sig nificantly changed. There is mild bronchiectasis, with patent tracheobronchial tree. Right-sided Chem o-Port. Some scattered postinfectious residua. There are no pleural or pericardial effusions. There is no mediastinal, hilar or axillary lymphadenopathy. There is no pneumothorax. Heart normal in size. There is mild coronary arterial calcification, arterial sclerosis. ABDOMEN PELVIS: Small lipoma along left upper abdominal musculature. The liver, spleen, adrenal glan ds and pancreas are unremarkable. Gallbladder is unremarkable. No biliary obstruction. Portal and splenic veins are patent. Kidneys enhance symmetrically. There is no hydronephrosis. The prostate is unremarkable. The bladder is unremarkable. There is no retroperitoneal or pelvic lymphadenopath y. There is mild scattered arteriosclerotic disease. There is appendicolith within an otherwise unremarkable appendix. The stomach and small bowel are un remarkable. There is moderate amount of colonic stool. There is extensive sigmoid predominant coloni c diverticulosis. There is no adjacent inflammatory change to suggest diverticulitis. No free intra peritoneal gas. There are no osteoblastic or osteolytic lesions identified. IMPRESSION: 1. Stable infiltrative left hilar treated malignancy. 2. Scattered lung post infectious residua. 3. Colonic diverticulosis. Reviewed, dictated and finalized at location [facility].
[2020-12-26 08:01] LABS: Estimated Glomerular Filt Rate > 60
== END 2020-12-26 07:33 | disposition home or self-care (01) ==
PROVIDERS: PCP Internal Medicine; Visit Provider Internal Medicine Medical Oncology
DX: C34.92 Malignant neoplasm of unspecified part of left bronchus or lung (principal); C78.7 Secondary malignant neoplasm of liver and intrahepatic bile duct; K57.30 Diverticulosis of large intestine without perforation or abscess without bleeding
CPT/HCPCS: 71260; 74177; Q9967

== ENCOUNTER 2021-07-30 07:02 | Outpatient (CLI) | payer MEDICARE, MEDICAID, SELFPAY ==
--- NOTE | ~2021-07-30 | CT_ITS ---
EXAMINATION: CT chest abdomen pelvis w con DATE: 07/30/2021 07:43 INDICATION: Lung cancer. Liver metastasis. TECHNIQUE: Computed tomography (CT) of the chest, abdomen, and pelvis was performed with 100 cc Omnip aque 350 intravenous contrast. Automated exposure control and iterative reconstruction technique were employed. Exam dose: 458.71 mGy-cm total exam DLP. COMPARISON: 12/26/2020, 09/29/2020, 07/07/2020 CT chest abdomen pelvis FINDINGS: CHEST CT: Right Port-A-Cath catheter tip in upper right atrium. There is chronic stable left upper lobe and left perihilar scarring, not significantly changed since 09/29/2020. Thyroid goiter and heterogeneous density including small masses. Normal heart size. No pericardial or pleural effusion. No hilar or mediastinal mass lesion or lymphadenopathy is noted. There is old pulmonary granulomatous disease with calcified bilateral hilar and mediastinal lymph nodes. There is nonspecific mild patchy groundglass density involving particularly the lower lobes and some chronic predominantly peripheral pulmonary interstitial changes. ABDOMEN/PELVIS CT: Stable subcentimeter area of hypoattenuation in the lateral aspect of the right hepatic lobe (series 3 image 130), not significant change since 03/02/2020. Small hemangioma or metastasis are consideration s. Calcified hepatic and splenic granulomas consistent with old granulomatous disease. The gallbladder i s unremarkable. No bile duct or pancreatic duct dilatation. Normal splenic size. No pancreatic mass l esion or calcification. Normal morphology of the adrenal glands. No renal mass lesion or urinary tract calculus or hydroureteronephrosis. There is prostate enlargemen t and calcification. There is moderate diffuse thickening of the urinary bladder wall. Normal caliber of the abdominal aorta. No intraperitoneal or retroperitoneal or pelvic mass lesion or adenopathy or ascites. Normal appendix. Diverticulosis of the left colon; no CT evidence of diverticulitis. No bowel obstruc tion, bowel wall thickening, pneumatosis or intraperitoneal free air. Small fat-containing umbilical hernia. There is degenerative disc disease particularly at L2-3 and L3-4 and degenerative change at the apoph yseal joints with associated grade 1 anterolisthesis at L3-4. Prominent degenerative spurring in the lower thoracic spine. No suspicious osteolytic or osteoblastic lesions are noted. IMPRESSION: No significant change since 07/07/2020; no recurrent or new primary or metastatic lesion is noted in chest, abdomen or pelvis Reviewed, dictated and finalized at [facility]. Reviewed, dictated and finalized at location A. 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
[2021-07-30 07:37] LABS: Estimated Glomerular Filt Rate > 60
== END 2021-07-30 07:03 | disposition home or self-care (01) ==
LOC: ANHIMG 07:04
PROVIDERS: PCP Internal Medicine; Visit Provider Internal Medicine Medical Oncology
DX: C34.92 Malignant neoplasm of unspecified part of left bronchus or lung (principal); C78.7 Secondary malignant neoplasm of liver and intrahepatic bile duct
CPT/HCPCS: 71260; 74177; Q9967

== ENCOUNTER 2021-11-12 08:43 | Outpatient (CLI) | payer MEDICARE, MEDICAID, SELFPAY ==
--- NOTE | ~2021-11-12 | CT_ITS ---
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 TECHNIQUE: Spiral CT of the chest, abdomen and pelvis was performed following intravenous injection o f 100 mL Omnipaque 350. Axial, coronal and sagittal images chest, abdomen and pelvis were reviewed. Coronal maximum intensity pixel images of chest reviewed. The dose-length product (DLP) for this ex amination was 464.44 mGy-cm. The exposure was tailored according to patient size (auto mA exposure c ontrol), and iterative reconstruction (ASIR) was used as additional dose reduction technique. Compari son is made to prior examination from 07/30/21. FINDINGS: CHEST: There is infiltrative left suprahilar opacity extending into the hilum, appearance is consist ent with treated lung cancer. Given its infiltrative shape, difficult to measure but volume and appea kaylan stable. Mediastinal lymph nodes are within normal size limits also stable. There are no pleural or pericardial effusions. Tracheobronchial tree is patent. There is a right-sided portacatheter. There is no pneumothorax. Heart normal in size. There is mild coronary arterial calcification, arterial sclerosis. ABDOMEN PELVIS: The liver, spleen, adrenal glands and pancreas are unremarkable. Gallbladder is unre markable. No biliary obstruction. Portal and splenic veins are patent. Kidneys enhance symmetrical ly. There is no hydronephrosis. The prostate is unremarkable. The bladder is unremarkable. Hazy, indistinct fat surrounding some retroperitoneal lymph nodes which are well within normal size limits , unchanged. No pathologically enlarged pelvic or retroperitoneal lymphadenopathy. Mild aortic arteri al sclerosis. The appendix is normal. There is moderate colonic diverticulosis. There is no adjacent inflammatory change to suggest diverticulitis. The stomach and small bowel are unremarkable. There is expected am ount of colonic stool. No free intraperitoneal gas. There are no osteoblastic or osteolytic lesio ns identified. IMPRESSION: 1. Stable treated left suprahilar, infiltrative hilar malignancy. 2. Stable thoracic and abdominal lymph nodes, within normal size limits. 3. Colonic diverticulosis. Reviewed, dictated and finalized at location A.
[2021-11-12 09:16] LABS: Estimated Glomerular Filt Rate > 60
== END 2021-11-12 08:44 | disposition home or self-care (01) ==
LOC: ANHIMG 08:51
PROVIDERS: PCP Internal Medicine; Visit Provider Internal Medicine Medical Oncology
DX: C34.92 Malignant neoplasm of unspecified part of left bronchus or lung (principal); C78.7 Secondary malignant neoplasm of liver and intrahepatic bile duct
CPT/HCPCS: 71260; 74177; Q9967

== ENCOUNTER 2022-02-20 06:36 | Outpatient (CLI) | payer MEDICARE, MEDICAID, SELFPAY ==
--- NOTE | ~2022-02-20 | CT_ITS ---
EXAMINATION: CT chest abdomen pelvis w con DATE: 02/20/2022 07:39 INDICATION: Small cell carcinoma of the left lung TECHNIQUE: Transaxial computed tomographic images of the chest, abdomen, and pelvis were obtained aft er the administration of 100 cc of Omnipaque 350 intravenous contrast. The dose-length product (DLP) was 386.82 mGy-cm. Automated exposure control and iterative reconstruction technique were employed. COMPARISON: 11/12/2021 FINDINGS: CHEST CT: There are chronic and unchanged airspace opacities and bronchiectasis in the perihilar left upper lob e. There is a stable 5 mm nodule of the right upper lobe. There is a trace left pleural effusion. No pneumothorax is identified. Calcified pulmonary nodules and calcified bilateral hilar lymph nodes are consistent with old granulomatous disease. The heart size is normal. ABDOMEN/PELVIS CT: Punctate calcifications in the liver and spleen likely represent healed granulomatous disease. A subt le, stable hypoattenuating metastasis of the right hepatic lobe is again noted. The pancreas, gallbla dder, and adrenal glands are normal. The kidneys are unremarkable. A circumaortic left renal vein is noted. No pathologically enlarged abdominal or pelvic lymph nodes are identified. There is no free in traperitoneal gas or evidence of bowel obstruction. Colonic diverticulosis is present without evidenc e of diverticulitis. The appendix is normal. There is moderate lumbar spondylosis. A small fat-contai elana umbilical hernia is noted. IMPRESSION: 1. Stable changes in the left upper lobe, consistent with treated malignancy. 2. Stable small liver metastasis. Reviewed, dictated and finalized at location [facility].
[2022-02-20 07:33] LABS: Estimated Glomerular Filt Rate > 60
--- NOTE | 2022-02-20 08:04 | PC.NURSE ---
0710 right upper chest port-a-cath accessed per [facility] procedure. Easy flush, no blood return after access. Patient did multiple repositioning maneuvers without blood return obtained. Heparin 100 units/ml 5 ml instilled into port and rose needle removed. 2x2 and paper tape to site. Patient told to contact Dr. Prabhakar's office for further instructions and possible Cathflo to clear port. Patient voiced understanding.
== END 2022-02-20 06:37 | disposition home or self-care (01) ==
PROVIDERS: PCP Internal Medicine; Visit Provider Internal Medicine Medical Oncology
DX: C34.92 Malignant neoplasm of unspecified part of left bronchus or lung (principal); C78.7 Secondary malignant neoplasm of liver and intrahepatic bile duct
CPT/HCPCS: 71260; 74177; Q9967

== ENCOUNTER 2022-03-08 07:34 | Outpatient (CLI) | payer MEDICARE, MEDICAID, SELFPAY ==
--- NOTE | ~2022-03-08 | XR_ITS ---
EXAMINATION: XR barium swallow DATE: 03/08/2022 08:15 INDICATION: Dysphagia. TECHNIQUE: The patient drank thick barium, gas-producing crystals, and thin barium. Fluoroscopy of th e hypopharynx and esophagus was performed. Fluoroscopy exposure time was 0.3 minutes. The total numbe r of images was 266. The dose-area product was 0.649 Gy-cm^2. COMPARISON: Chest CT 02/20/2022 FINDINGS: Laryngeal penetration is noted. No aspiration. There is no mass or stricture of the esophag us. Esophageal motility is normal. There is no hiatal hernia. A port is noted. IMPRESSION: 1. Laryngeal penetration. No aspiration. Reviewed, dictated and finalized at location A.
--- NOTE | ~2022-03-08 | XR_ITS ---
EXAMINATION: XR fl port a cath w contrast DATE: 03/08/2022 08:15 INDICATION: Complication of implanted device. Blood cannot be aspirated from the port. TECHNIQUE: We injected the port catheter with contrast while I performed fluoroscopy of the chest. Th e number of images was 332. The fluoroscopy exposure time was 0.3 minutes. COMPARISON: Chest CT 02/20/2022 FINDINGS: There is a right internal jugular port with tip at superior cavoatrial junction. Contrast c ollects around the distal tip of the catheter during injection. IMPRESSION: 1. Contrast collects around the distal tip of the catheter suggesting a fibrin sheath. Reviewed, dictated and finalized at location A.
== END 2022-03-08 07:35 | disposition home or self-care (01) ==
PROVIDERS: PCP Internal Medicine; Visit Provider Internal Medicine Medical Oncology
DX: T85.9XXA Unspecified complication of internal prosthetic device, implant and graft, initial encounter (principal)
CPT/HCPCS: 36598; 74220; Q9966

== ENCOUNTER 2022-05-28 06:39 | Outpatient (CLI) | payer MEDICARE, MEDICAID, SELFPAY ==
--- NOTE | ~2022-05-28 | CT_ITS ---
EXAMINATION: CT chest abdomen pelvis w con DATE: 05/28/2022 07:28 INDICATION: Small cell carcinoma left lung. TECHNIQUE: Computed tomography (CT) of the chest, abdomen, and pelvis was performed with 100 mL Omnip aque-350 intravenous contrast. Automated exposure control and iterative reconstruction technique were employed. The dose-length product was 375.26 mGy-cm. COMPARISON: 02/20/2022 and 02/18/2019 FINDINGS: CHEST CT: No significant interval change in a multinodular goiter with the largest nodule in the right thyroid lobe measuring 1.6 cm. Stable appearance of a triangular region of consolidation with air bronchogram s in the suprahilar/paramediastinal left upper lobe consistent with radiation fibrosis and treated naila ng cancer. Emphysema with scattered mosaic attenuation consistent with subsegmental air trapping rela walter to small airway disease. No significant change in a chronic diffuse tree-in-bud pattern with uppe r lung predominance consistent with chronic infection such as Mycobacterium avium intracellulare (SYBIL ). A few slightly larger unchanged calcified and noncalcified pulmonary nodules, the largest measurin g 5 mm which is been stable since 2019 consistent with old granulomatous disease. No suspicious new o r enlarging pulmonary nodules. Mild dependent atelectasis. No pneumonia, pulmonary edema or pleural e ffusion. Heart size is normal. Small amount of atherosclerotic coronary artery calcific location. No pericardial effusion. Thoracic aorta is normal in caliber with no dissection. Right internal jugular central venous port catheter tip at the superior cavoatrial junction. There are few calcified bilater al hilar and mediastinal lymph nodes consistent with old granulomatous disease. No pathologically enl arged or concerning enlarging thoracic lymphadenopathy. Spiculated bone island at the right humeral h ead. Moderate to severe lower thoracic spondylosis. ABDOMEN/PELVIS CT: Scattered hepatic and splenic calcific lesions consistent with old granulomatous disease. 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 No new or enlarging hepatic lesions identified. Gallbladder, pancreas, bilateral adrenal glands and right kidney are normal. Subtle 1.6 cm lesion at the lateral interpolar region of the left kidney which is isodense to the renal medulla but with associated loss of the adjacent hyper enhancing cortex which would favor an enhancing nodule either metastatic disease or primary renal jennifer l carcinoma over a proteinaceous/hemorrhagic cyst. Circumaortic left renal veins. Moderate sigmoid pr edominant diverticulosis without adjacent inflammatory stranding to suggest diverticulitis. Small bow el and appendix are normal. Bladder is normal. No free intraperitoneal gas or fluid. No pathologicall y enlarged abdominal or pelvic lymphadenopathy. Moderate to severe mid lumbar predominant spondylosis . IMPRESSION: 1. Stable appearance of chronic scarring with volume loss in the paramediastinal/suprahilar left uppe r lobe consistent with treated lung cancer. 2. Stable small treated liver metastasis. 3. 1.6 cm left renal lesion suspicious for metastatic disease or primary renal cell carcinoma althoug h could not absolutely exclude a proteinaceous/hemorrhagic cyst. Recommend further evaluation with pr e and postcontrast MRI. 4. Chronic diffuse bilateral tree-in-bud pattern with upper lobe predominance consistent with sequela of chronic infection, potentially SYBIL. 5. Diverticulosis. Reviewed, dictated and finalized at location B. Electronically signed by Neetu Laughlin
[2022-05-28 07:16] LABS: Estimated Glomerular Filt Rate > 60
== END 2022-05-28 06:40 | disposition home or self-care (01) ==
PROVIDERS: PCP Internal Medicine; Visit Provider Internal Medicine Medical Oncology
DX: C34.92 Malignant neoplasm of unspecified part of left bronchus or lung (principal); C78.7 Secondary malignant neoplasm of liver and intrahepatic bile duct; K57.30 Diverticulosis of large intestine without perforation or abscess without bleeding; N28.89 Other specified disorders of kidney and ureter
CPT/HCPCS: 71260; 74177; Q9967

== ENCOUNTER 2022-06-24 06:34 | Outpatient (CLI) | payer MEDICARE, MEDICAID, SELFPAY ==
--- NOTE | ~2022-06-24 | MR_ITS ---
EXAMINATION: MR abdomen wo/w con DATE: 06/24/2022 07:41 INDICATION: Kidney mass. TECHNIQUE: Magnetic resonance imaging (MRI) of the abdomen was performed without and with 13 mL Multi Carlos intravenous contrast. COMPARISON: CT abdomen and pelvis 05/28/2022, 02/20/22, CT abdomen 12/30/17 FINDINGS: Calcifications in the liver and spleen are consistent with old granulomatous disease. There is an ill -defined 1 cm mass in right hepatic lobe. The gallbladder, spleen, pancreas, adrenal glands, and righ t kidney are normal. There is a 1.5 cm hypoenhancing mass in left kidney. There are no dilated loops of bowel. There are no pathologically enlarged lymph nodes. There is no free intraperitoneal fluid. IMPRESSION: 1. 1.5 cm hypoenhancing mass in left kidney, which may be metastatic disease or renal cell carcinoma. 2. Ill-defined 1 cm mass in right hepatic lobe, stable from 02/20/2022, consistent with metastatic dis ease. Reviewed, dictated and finalized at location A. ENGINEER IMPRESSION: 1. 1.5 cm hypoenhancing mass in left kidney, which may be metastatic disease or renal cell carcinoma. 2. Ill-defined 1 cm mass in right hepatic lobe, stable from 02/20/2022, consiste nt with metastatic disease.
== END 2022-06-24 06:35 | disposition home or self-care (01) ==
PROVIDERS: PCP Internal Medicine; Visit Provider Internal Medicine Medical Oncology
DX: N28.9 Disorder of kidney and ureter, unspecified (principal)
CPT/HCPCS: 74183; A9577

== ENCOUNTER 2022-08-26 07:17 | Outpatient (CLI) | payer MEDICARE, MEDICAID, SELFPAY ==
--- NOTE | ~2022-08-26 | CT_ITS ---
EXAMINATION: CT chest abdomen pelvis w con DATE: 08/26/2022 07:47 INDICATION: Small cell carcinoma of left lung. TECHNIQUE: Computed tomography (CT) of the chest, abdomen, and pelvis was performed with 100 mL Omnip aque 350 intravenous contrast. Automated exposure control and iterative reconstruction technique were employed. The dose-length product was 441.73 mGy-cm. COMPARISON: CT chest, abdomen, and pelvis 05/28/2022, abdomen MRI 06/24/22 FINDINGS: CHEST CT: There is mild emphysema. There are airspace opacities in perihilar left upper lobe and superior segme nt left lower lobe with volume loss and varicose bronchiectasis, consistent with radiation pneumoniti s. Calcified left lung nodules and calcified left hilar and mediastinal lymph nodes are consistent wi th old granular disc disease. There is chronic septal thickening in the inferior lungs. There are chr onic scattered groundglass opacities in the lungs. There are innumerable chronic small nodules in the lungs with an upper lung predominance, which may be respiratory bronchiolitis or chronic infection. There is a 12 mm nodule in right lung lower lobe, which measured 9 mm on 05/28/2022. There is a stable 4 mm nodule in right upper lobe. There is a stable 5 mm nodule in right upper lobe. No pleural effus ion. There are nodules in the thyroid measuring up to 13 mm, likely not clinically significant. There is a right internal jugular port with tip in proximal right atrium. The heart size is normal. No per icardial effusion. There is severe thoracic spondylosis. ABDOMEN/PELVIS CT: Calcifications in the liver and spleen are consistent with old granulomatous disease. There is a 6 mm mass in right hepatic lobe that demonstrated small cell neuroendocrine carcinoma on biopsy on 018. There are approximately three cysts in the liver measuring up to 6 mm. The gallbladder, pancreas , and adrenal glands are normal. There is cortical thinning of the kidneys. There is a 1.4 cm mass in left kidney measuring soft tissue attenuation that enhanced on the prior MRI. The prostate is mildly enlarged. There is diverticulosis of the colon without evidence of diverticulitis. There are no dila walter loops of bowel. The appendix is normal. There are no pathologically enlarged lymph nodes. There i s no free intraperitoneal fluid. There is severe lumbar spondylosis. IMPRESSION: 1. Worsened pulmonary nodule and stable liver mass, consistent with metastatic disease. 2. Stable left kidney mass, consistent with renal cell carcinoma versus metastatic disease. Reviewed, dictated and finalized at location A. SETTER IMPRESSION: 1. Worsened pulmonary nodule and stable liver mass, consistent with metastatic disease. 2. Stable left kidney mass, consistent with renal cell carcinoma versus metasta tic disease.
[2022-08-26 07:38] LABS: Estimated Glomerular Filt Rate > 60
== END 2022-08-26 07:18 | disposition home or self-care (01) ==
PROVIDERS: PCP Internal Medicine; Visit Provider Internal Medicine Medical Oncology
DX: C34.92 Malignant neoplasm of unspecified part of left bronchus or lung (principal); C78.7 Secondary malignant neoplasm of liver and intrahepatic bile duct; N28.89 Other specified disorders of kidney and ureter; R91.8 Other nonspecific abnormal finding of lung field
CPT/HCPCS: 71260; 74177; Q9967

== ENCOUNTER 2022-11-04 06:35 | Outpatient (CLI) | payer MEDICARE, MEDICAID, SELFPAY ==
--- NOTE | ~2022-11-04 | CT_ITS ---
EXAMINATION: CT chest abdomen pelvis w con DATE: 11/04/2022 07:07 INDICATION: Small cell carcinoma of left lung. TECHNIQUE: Computed tomography (CT) of the chest, abdomen, and pelvis was performed with 100 mL Omnip aque 350 intravenous contrast. Automated exposure control and iterative reconstruction technique were employed. The dose-length product was 442.86 mGy-cm. COMPARISON: CT chest, abdomen, and pelvis 08/26/22 FINDINGS: CHEST CT: There is mild emphysema. Calcified pulmonary nodules and calcified hilar and mediastinal lymph nodes are consistent with old granulomatous disease. There is a 15 mm nodule in right lower lobe that measu red 9 mm on 08/26/2022. There is widespread septal thickening in the lungs. There are airspace opaciti es with volume loss and varicose bronchiectasis in perihilar left upper lobe and to a lesser extent p erihilar left lower lobe. There are widespread tree-in-bud opacities in the upper lobes and lower lob es peripherally, consistent with chronic infection. There is a stable 5 mm nodule in right upper lobe . There is a stable 4 mm nodule in right upper lobe. No pleural effusion. There are nodules in the th yroid measuring up to 13 mm, likely not clinically significant. There is a right internal jugular por t with tip in proximal right atrium. The heart size is normal. No pericardial effusion. There are cor onary artery calcifications. There is severe thoracic spondylosis. ABDOMEN/PELVIS CT: Calcifications in the liver and spleen are consistent with old granulomatous disease. 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 There are cysts in the liver measuring up to 6 mm. The gallbladder, pancrea s, and adrenal glands are normal. There is cortical thinning of the kidneys. The prostate is mildly e nlarged. There is diverticulosis of the colon without evidence of diverticulitis. There are no dilate d loops of bowel. The appendix is normal. There are no pathologically enlarged lymph nodes. There is no free intraperitoneal fluid. There is severe lumbar spondylosis. IMPRESSION: 1. Worsened pulmonary nodule and liver mass, consistent with metastatic disease. Reviewed, dictated and finalized at location A. IMPRESSION: 1. Worsened pulmonary nodule and liver mass, consistent with metastatic disease .
[2022-11-04 07:03] LABS: Estimated Glomerular Filt Rate 60
== END 2022-11-04 06:36 | disposition home or self-care (01) ==
LOC: ANHIMG 06:39
PROVIDERS: PCP Internal Medicine; Visit Provider Internal Medicine Medical Oncology
DX: C34.92 Malignant neoplasm of unspecified part of left bronchus or lung (principal); C78.7 Secondary malignant neoplasm of liver and intrahepatic bile duct
CPT/HCPCS: 71260; 74177; Q9967

== ENCOUNTER 2022-11-15 03:07 | Day surgery (SDC) | payer MEDICARE, MEDICAID, SELFPAY ==
[2022-10-01 14:31] VITALS: BMI 22.0
[2022-11-08 11:22] VITALS: BMI 22.0
[2022-11-15 09:28] VITALS: BP 127/73; PULSE 84; RESP 18; TEMP 36.2; O2SAT 100; BMI 21.4
[2022-11-15] MEDS: LACTATED RINGERS 1,000 ML 150 ML IV CONT (09:46)
--- NOTE | 2022-11-15 10:19 | P.PNAN_ITS ---
Anes - Initial Pre Proc Eval Procedure: Operation Date: 11/15/22 10:45 Proposed Procedures p Esophagogastroduodenoscopy & Screening Colonoscopy - Neal Hess MD Date/Time: 11/15/22 10:19 Surgeon: Neal Alarcon MD Pre Op Diagnosis: GERD, neoplasm screening Patient Data Age: 72 Gender: M Height: 1.73 m Weight: 63.8 kg Last Vital Signs Temp 97.1 F L 11/15/22 09:28 Pulse 84 11/15/22 09:28 Resp 18 11/15/22 09:28 BP 127/73 11/15/22 09:28 Pulse Ox 100 11/15/22 09:28 O2 Del Method Room Air 11/15/22 09:28 Allergies Allergy/AdvReac Type Severity Reaction Status Date / Time oxycodone AdvReac Unknown Itching Verified 11/15/22 09:35 Home Medications Medication Instructions Recorded Confirmed Type polyethylene glycol 3350 17 gram 17 gm PO DAILY PRN constipation 03/22/20 11/15/22 Rx oral powder packet (Miralax) #10 ea tamsulosin 0.4 mg capsule 0.4 mg PO DAILY 03/22/20 11/15/22 History temozolomide 140 mg capsule 140 mg PO DAILY 03/22/20 11/15/22 History ondansetron HCl 8 mg tablet 8 mg PO Q8H PRN nausea and 08/30/22 11/15/22 Rx vomiting #30 tabs gabapentin 300 mg capsule 300 mg PO HS 11/08/22 11/15/22 History omeprazole 20 mg capsule,delayed 20 mg PO DAILY 11/08/22 11/15/22 History release Patient hx anesthesia problems: none Family hx anesthesia problems: none Results Review: All pre-operative results and documents have been reviewed as part of the pre- operative evaluation. [facility] Past Medical History Medical History (Updated 08/30/22 @ 10:45 by Mayuri Richardson APRN) Colon cancer screening Family history of colon cancer GERD (gastroesophageal reflux disease) History of duodenal ulcer History of known metastasis to liver Nausea Oropharyngeal dysphagia Renal lesion Small cell lung cancer Tobacco abuse Urinary retention Surgical History Surgical History Hx of knee surgery Social History Social History Years smoked: 50 Smoking status: Light tobacco smoker Tobacco type: cigarettes Additional smoking assessment comments: advised patient has reduced cigarette usage to 2 cigarettes/day Substance use type: does not use Living arrangements: with family Gender identity (if verbalized by the patient): Male Spiritual care concerns: No Anes - Eval Final PreProcedure Day of Procedure 11/15/22 10:19 Patient weight: normal Heart: regular rate and rhythm Lungs: clear to auscultation Airway: Mallampati scale class II Neurological: alert and oriented Last oral intake: >/= 8 hours ASA classification: III Emergent: no Anesthetic plan: proceed Anesthesia type and monitoring: general GIVS and standard monitoring Results Review: All pre-operative results and documents have been reviewed as part of the pre- operative evaluation. Informed Consent: The patient's anesthetic plan and its attendant risks and benefits were discussed with the patient/family/POA. Questions were solicited and answers provided to the satisfaction of the patient/family/POA.
--- NOTE | 2022-11-15 10:22 | PM.HPGS ---
History of Present Illness History of Present Illness Consent: Risks, benefits, and alternatives have been discussed and questions answered. Patient agrees to proceed with procedure. Chief complaint: GERD, neoplasm screening Narrative: Tom Menon is a 72 year old male here for egd and colonoscopy, history of small-cell lung cancer diagnosed in 2017 and underwent radiation daily for 6 weeks and chemotherapy and developed metastasis to liver in 2018. He has sinus drainage with choking after eating, egd years ago showed duodenitis. Last colonoscopy 2010. Review of Systems Constitutional: Constitutional: Denies headache(s) and Denies weakness Eyes: Eyes: Denies blurry vision ENT: Reports Normal hearing present and Reports post nasal drip Cardiovascular: Cardiovascular: Denies chest pain and Denies dyspnea Respiratory: Respiratory: Reports cough Gastrointestinal: Gastrointestinal: Reports no additional gastrointestinal complaints Genitourinary: Genitourinary: Denies dysuria Musculoskeletal: Musculoskeletal: Denies neck pain Integumentary/Breasts: Skin/Breast: Denies dry skin Neurologic: Reports Normal hearing present, Denies headache(s) and Denies weakness Psychiatric: Psychiatric: Denies anxiety Endocrine: Endocrine: Denies change in body appearance Hematologic/Lymphatic: Hematologic/Lymphatic: Denies easy bleeding Allergic/Immunologic: Allergic/Immunologic: Denies urticaria PMFSH Past Medical History Medical History (Updated 08/30/22 @ 10:45 by Mayuri Richardson APRN) Colon cancer screening Family history of colon cancer GERD (gastroesophageal reflux disease) History of duodenal ulcer History of known metastasis to liver Nausea Oropharyngeal dysphagia Renal lesion Small cell lung cancer Tobacco abuse Urinary retention Surgical History Surgical History Hx of knee surgery Social History Social History Years smoked: 50 Smoking status: Light tobacco smoker Tobacco type: cigarettes Additional smoking assessment comments: advised patient has reduced cigarette usage to 2 cigarettes/day Substance use type: does not use Living arrangements: with family Gender identity (if verbalized by the patient): Male Spiritual care concerns: No Meds Home Medications and Allergies Home Medications Medication Instructions Recorded Confirmed Type polyethylene glycol 3350 17 gram 17 gm PO DAILY PRN constipation 03/22/20 11/15/22 Rx oral powder packet (Miralax) #10 ea tamsulosin 0.4 mg capsule 0.4 mg PO DAILY 03/22/20 11/15/22 History temozolomide 140 mg capsule 140 mg PO DAILY 03/22/20 11/15/22 History ondansetron HCl 8 mg tablet 8 mg PO Q8H PRN nausea and 08/30/22 11/15/22 Rx vomiting #30 tabs gabapentin 300 mg capsule 300 mg PO HS 11/08/22 11/15/22 History omeprazole 20 mg capsule,delayed 20 mg PO DAILY 11/08/22 11/15/22 History release Allergies Allergy/AdvReac Type Severity Reaction Status Date / Time oxycodone AdvReac Unknown Itching Verified 11/15/22 09:35 Vital Signs Vital Signs - 24 hr 11/15/22 09:28 Temperature 97.1 F L Pulse Rate 84 Respiratory Rate 18 Blood Pressure 127/73 Pulse Oximetry 100 Oxygen Delivery Room Air Exam Const: General: comfortable and no acute distress HENMT: Face/Nose/Sinus: Normal nares present Eyes: General: appearance normal, both eyes and all related structures Neck: Neck: no JVD Resp: Auscultation: clear to auscultation bilaterally Cardio: Rate: regular rate Rhythm: regular rhythm GI: Inspection: non-distended GI Palp: Yes Soft to palpation Skin: General skin exam: normal color Neuro: General: gait normal Speech: normal speech Extrem: General: normal to inspection Psych: Mental Status: mental status grossly normal Assessment and Plan Assessment and plan (1) Oropharyngeal dysphagia
[2022-11-15 10:54] VITALS: BP 102/58; PULSE 71; RESP 20; O2SAT 100
--- NOTE | 2022-11-15 10:55 | SUR.OPER ---
EGD START 1027, END 1034 COLONOSCOPY START 1038, END 1051 DR HUNT NOTIFIED DESCENDING COLON POLYP NOT RETRIEVED, NO NEW ORDERS.
[2022-11-15 11:04] VITALS: BP 103/60; PULSE 66; RESP 24; O2SAT 100
== END 2022-11-15 11:20 | disposition home or self-care (01) ==
PROVIDERS: PCP Internal Medicine; Visit Provider Internal Medicine Gastroenterology
PROC: 0DJ08ZZ Inspection of Upper Intestinal Tract, Via Natural or Artificial Opening Endoscopic (ICD-10-PCS; CPT 43235; principal; 2022-11-15 10:45)
DX: Z12.11 Encounter for screening for malignant neoplasm of colon (principal); K57.30 Diverticulosis of large intestine without perforation or abscess without bleeding; K63.5 Polyp of colon; K64.8 Other hemorrhoids; K44.9 Diaphragmatic hernia without obstruction or gangrene; K22.2 Esophageal obstruction; K21.9 Gastro-esophageal reflux disease without esophagitis; Z85.118 Personal history of other malignant neoplasm of bronchus and lung; Z85.05 Personal history of malignant neoplasm of liver; Z92.3 Personal history of irradiation; Z92.21 Personal history of antineoplastic chemotherapy; F17.210 Nicotine dependence, cigarettes, uncomplicated
CPT/HCPCS: 45385; 43249; 43239; 88305; C1726; J2704; J7120

== ENCOUNTER 2023-08-09 10:32 | Emergency (ER) | payer MEDICARE, MEDICAID, SELFPAY ==
--- NOTE | ~2023-08-09 | XR_ITS ---
EXAMINATION: XR hip LT 2V w AP pelvis INDICATION: Left posterior hip pain TECHNIQUE: AP view of the pelvis and two views of the left hip are obtained. COMPARISON: 07/28/2010 FINDINGS: Bone alignment is normal. There is no fracture. The soft tissues are unremarkable. There is moderate lumbar spondylosis. IMPRESSION: 1. No acute osseous abnormality. Reviewed, dictated and finalized at location F. ER STRAIGHTENER
--- NOTE | 2023-08-09 10:37 | ED.GENADULT ---
HPI - General Adult General Chief complaint: Unspecified Stated complaint: hip pain Time Seen by Provider: 08/09/23 10:37 Source: patient Mode of arrival: ambulatory Limitations: no limitations History of Present Illness HPI narrative: Tom is a 73-year-old male patient presenting to the ER today with complaints of left hip pain x1 week. He reports he has recently started vancomycin due to C diff. states he is having hip pain to the posterior hip. Pain is worse with walking/bearing weight. Rates the pain currently a 7/10. No known injury. Denies any radiation of pain Related Data Home Medications Medication Instructions Recorded Confirmed tamsulosin 0.4 mg capsule 0.4 mg PO DAILY 03/22/20 11/15/22 temozolomide 140 mg capsule 140 mg PO DAILY 03/22/20 11/15/22 gabapentin 300 mg capsule 300 mg PO HS 11/08/22 11/15/22 omeprazole 20 mg capsule,delayed 20 mg PO DAILY 11/08/22 11/15/22 release diclofenac sodium 1 % topical gel topical 08/09/23 08/09/23 metoclopramide HCl 10 mg tablet mg 08/09/23 vancomycin 250 mg capsule mg 08/09/23 Allergies Allergy/AdvReac Type Severity Reaction Status Date / Time oxycodone AdvReac Unknown Itching Verified 08/09/23 10:41 adhesive tape AdvReac Hives Verified 08/09/23 10:41 Review of Systems Review of Systems: Pertinent positives per HPI. Patient denies any fever, chills, rash, headache, visual changes, dizziness, cough, runny nose, sore throat, shortness of breath, chest pain, palpitations, nausea, vomiting, diarrhea, constipation, abdominal pain, or any urinary issues. [facility] Past Medical History Medical History Colon cancer screening Family history of colon cancer GERD (gastroesophageal reflux disease) History of duodenal ulcer History of known metastasis to liver Nausea Oropharyngeal dysphagia Renal lesion Small cell lung cancer Tobacco abuse Urinary retention Surgical History Surgical History Hx of knee surgery Social History Social History Years smoked: 50 Smoking status: Light tobacco smoker Tobacco type: cigarettes Additional smoking assessment comments: advised patient has reduced cigarette usage to 2 cigarettes/day Substance use type: does not use Living arrangements: with family Gender identity (if verbalized by the patient): Male Spiritual care concerns: No Comments At the time of my signature, I reviewed and agree with the nursing past medical, surgical, social, and family history. There is no relevant family history pertinent to the patient complaint. Exam Narrative: General: Well-developed, well nourished, in no apparent distress Head: Normocephalic, atraumatic. Cardio: Regular rate and rhythm, s1 and s2 normal, no murmur appreciated. Resp: Clear to auscultation bilaterally, no rhonchi, rales, wheezing or rubs. Musculoskeletal: No deformity, tender to palpation over the left posterior hip near the buttocks, states he feels pain in the ball and socket, grossly normal range of motion, pain is worse with bearing weight and ambulation, muscle strength strong and equal, peripheral pulse strong, no edema, no cyanosis, normal gait and station Course Course Emergency Course: Portions of this record may have been created with voice recognition software. Vital Signs Vital signs: Vital signs reviewed Medical Decision Making MDM Narrative Medical decision making narrative: At the time of visit patient is resting comfortably on the exam table. Patient appears to be nontoxic. Diagnostics: Left hip/pelvis x-rays negative for any acute fracture or malalignment. Does show some moderate lumbar spondylosis. Plan: X-ray was negative. I suspect this may be an inflammatory cause of pain. Prescription for Medrol Dosepak was sent to the pharmacy. [facility]
[2023-08-09 10:38] VITALS: BP 145/88; PULSE 72; RESP 14; TEMP 36.6; O2SAT 99
== END 2023-08-09 11:50 | disposition home or self-care (01) ==
PROVIDERS: Emergency Provider Nurse Practitioner Family; PCP Internal Medicine
DX: M25.552 Pain in left hip (principal); K21.9 Gastro-esophageal reflux disease without esophagitis; F17.210 Nicotine dependence, cigarettes, uncomplicated; Z85.118 Personal history of other malignant neoplasm of bronchus and lung; Z85.05 Personal history of malignant neoplasm of liver
CPT/HCPCS: 73502; 99283

== ENCOUNTER 2023-11-10 15:18 | Outpatient (CLI) | payer MEDICARE, MEDICAID, SELFPAY ==
--- NOTE | ~2023-11-10 | XR_ITS ---
XR chest 2V 11/10/2023 15:41 Indication: Fever. Small cell carcinoma of the lung. Procedure: 2 view chest Comparison: Comparison to report dated 11/04/2022 Findings: Diffuse bilateral interstitial infiltrates with more focal consolidation in the left mid an d lower lung. There is masslike density in the left upper thorax, suspicious for malignancy. Portacat heter tip near the cavoatrial junction. Impression: 1: Masslike density left upper thorax, concerning for malignancy. There is an additional nodular dens ity in the right lower thorax/infrahilar region. 2: Diffuse bilateral interstitial infiltrates, more confluent on the left. This may represent edema, pneumonia and/or metastatic disease. Reviewed, dictated and finalized at location B. Impression: 1: Masslike density left upper thorax, concerning for malignancy. There is an a dditional nodular density in the right lower thorax/infrahilar region. 2: Diffuse bilateral interstitial infiltrates, more confluent on the left. Thi s may represent edema, pneumonia and/or metastatic disease.
== END 2023-11-10 15:19 | disposition home or self-care (01) ==
LOC: ANHIMG 15:22
PROVIDERS: PCP Internal Medicine; Visit Provider Internal Medicine Medical Oncology
DX: R50.9 Fever, unspecified (principal); R05.1 Acute cough; C34.92 Malignant neoplasm of unspecified part of left bronchus or lung; C78.7 Secondary malignant neoplasm of liver and intrahepatic bile duct
CPT/HCPCS: 71046

== ENCOUNTER 2023-11-11 02:39 | Inpatient (IN) | payer MEDICARE, MEDICAID, SELFPAY ==
[2023-11-11] VITALS (18 sets, daily range): BP systolic 124–138; BP diastolic 71–85; PULSE 84–139; RESP 16–38; TEMP 36.1–36.3; O2SAT 86–98; BMI 19.0
--- NOTE | ~2023-11-11 | CT_ITS ---
Clinical Indication: Hypoxia CT Scan of the Chest with Contrast: Technique: Contiguous sections were acquired throughout the chest after intravenous administration of 100 cc of Omnipaque 350. Dose reduction technique was used on this scan by utilizing automated expos ure control and iterative reconstruction technique. The dose-length product (DLP) was 272.21 mGy-cm. COMPARISON: Report from prior exam dated 11/04/2022 Findings: Large superior right mediastinal lymph node measures 4.7 x 2.8 cm (axial image 57). There is addition al bulky confluent lymphadenopathy or mass in the right infrahilar region, along the right heart bord er, measuring approximately 5.7 x 4.0 cm (axial image 151). There is subcarinal adenopathy and right hilar adenopathy as well. There is no filling defect in the pulmonary arterial tree to suggest pulmon glory embolus. There is no evidence of aortic dissection or aneurysm. There is no evidence of pleural or pericardial effusion. There is a 2.6 cm right lower lobe pulmonary nodule (axial image 79). There is diffuse interstitial t hickening and extensive groundglass opacities in the lungs, worst in the right upper lobe. There is a n area of irregular dense consolidation extensively involving the left upper lobe extending to the le ft hilum, there are bronchograms. Images through the upper abdomen reveal no abnormalities. Impression: No evidence of pulmonary embolus, aortic dissection, or aortic aneurysm. Probable significant interval worsening of metastatic disease based on report from prior exam. Right lower lobe pulmonary nodule now measures 2.6 m in diameter, and there is extensive mediastinal and ri ght hilar metastatic lymphadenopathy present. Please see details above. Extensive consolidation left upper lobe/left perihilar region, with air bronchograms. Stability is di fficult to assess as images from prior exam are not available for direct comparison. This could refle ct postradiation change or other chronic post therapy change. Pneumonia or recurrent neoplasm cannot be completely excluded based on this examination lesion. Extensive groundglass pulmonary disease and interstitial thickening throughout the lungs. Correlate f or chronic interstitial disease, mild pulmonary edema, or less likely, atypical infection. Reviewed, dictated and finalized at location M. Impression: No evidence of pulmonary embolus, aortic dissection, or aortic aneurysm. Probable significant interval worsening of metastatic disease based on report f rom prior exam. Right lower lobe pulmonary nodule now measures 2.6 m in diamete r, and there is extensive mediastinal and right hilar metastatic lymphadenopath y present. Please see details above. Extensive consolidation left upper lobe/left perihilar region, with air broncho grams. Stability is difficult to assess as images from prior exam are not avail able for direct comparison. This could reflect postradiation change or other ch ronic post therapy change. Pneumonia or recurrent neoplasm cannot be completely excluded based on this examination lesion. Extensive groundglass pulmonary disease and interstitial thickening throughout the lungs. Correlate for chronic interstitial disease, mild pulmonary edema, or less likely, atypical infection.
--- NOTE | ~2023-11-11 | XR_ITS ---
MODIFIED ESOPHAGRAM HISTORY: Dysphagia. TECHNIQUE: Modified barium esophagram was performed on 11/12/2023. I administered fluoroscopy and perf ormed the exam with speech pathologist. Patient was seated for lateral fluoroscopic imaging for asmita stion of thin liquids, pudding, solids and quantified amounts, followed by thin liquids in uncontroll ed amounts. This was recorded on tape. A single fluoroscopic spot image was also recorded. The DAP fo r this procedure was 2.474 Gycm2. The amount of fluoroscopy time used during this procedure was 4.1 m inutes. FINDINGS: Oral stage: Adequate function. Pharyngeal stage: Reduced laryngeal elevation and tongue base retraction. There is vallecular and pir iform sinus residue. There is laryngeal penetration which is expected to result in increased risk of aspiration although no judson aspiration was observed. Cervical/esophageal stage: Adequate function. IMPRESSION: Pharyngeal dysphagia with laryngeal penetration and expected subsequent aspiration. Plea se correlate with speech pathologist findings and specific feeding recommendations. Reviewed, dictated and finalized at location A. IMPRESSION: Pharyngeal dysphagia with laryngeal penetration and expected subseq uent aspiration. Please correlate with speech pathologist findings and specifi c feeding recommendations.
--- NOTE | 2023-11-11 03:02 | ECG_ITS ---
SEE SCANNED COPY FOR CONFIRMED REPORT MTDD
[2023-11-11] MEDS: LACTATED RINGERS 1,000 ML 999 ML IV CONT ×2 (03:30→05:52)
[2023-11-11 03:41] LABS: Basophils Percent Auto 0.5 % (0.2-1.2); Eosinophils Absolute Auto 0.1 K/mm3 (0-0.3); Eosinophils Percent Auto 0.9 % (0-4.4); Hematocrit 35.7 % (42.0-52.0); Hemoglobin 11.6 g/dL (14.0-18.0); Immature Granulocyte Absolute 0.08 K/mm3 (0.00-0.031); Immature Granulocyte Percent A 1.1 % (0-0.5); Lymphocytes Absolute Auto 0.71 K/mm3 (0.9-3.2); Lymphocytes Percent Auto 9.4 % (18.3-44.2); Mean Corpuscular HGB Conc 32.5 g/dl (32-36); Mean Corpuscular Hemoglobin 31.7 pg (26-34); Mean Corpuscular Volume 97.5 fl (80-100); Mean Platelet Volume 10.2 fl (7.4-10.4); Monocytes Absolute Auto 0.5 K/mm3 (0.1-0.6); Monocytes Percent Auto 6.3 % (2.6-8.5); Neutrophils Absolute Auto 6.2 K/mm3 (1.3-6.7); Neutrophils Percent Auto 81.8 % (45.5-73.1); Platelet Count Result 238 k/mm3 (150-375); Red Blood Count 3.66 M/mm3 (4.6-6.20); Red Cell Distribution Width 15.4 % (11.5-14.5); White Blood Count 7.6 K/mm3 (4.5-10.0)
[2023-11-11 03:53] LABS: Lactic Acid Reflex 1.8 mmol/L (0.7-2.0)
[2023-11-11 03:54] LABS: INR 1.1; Partial Thromboplastin Time 31.5 Seconds (22.3-36.8); Prothrombin Time 14.9 Seconds (11.1-14.7)
[2023-11-11 03:56] LABS: Alanine Aminotransferase 15 U/L (6-50); Albumin Level 3.4 g/dL (3.5-5.1); Alkaline Phosphatase 181 U/L (38-126); Anion Gap 8 mmol/L (4-12); Aspartate Amino Transferase 24 U/L (17-59); Bilirubin,Total 0.8 mg/dL (0.2-1.3); Blood Urea Nitrogen 29 mg/dL (9-20); Carbon Dioxide 24 mmol/L (22-30); Chloride 107 mmol/L (98-107); Estimated CRCL calculation 50 ml/min; Estimated Glomerular Filt Rate > 60; Glucose 102 mg/dL (65-110); Potassium 4.1 mmol/L (3.4-5.0); Sodium 139 mmol/L (137-145)
--- NOTE | 2023-11-11 04:03 | ED.SOB ---
HPI - SOB/Dyspnea General Chief Complaint: Shortness of Breath/Dyspnea Stated Complaint: SOB Time Seen by Provider: 11/11/23 03:04 History of Present Illness HPI Narrative: Patient's history of lung cancer on chemotherapy presents here with productive cough the last few days, increased shortness of breath, he has also not been eating or drinking and does not have an appetite. has been trying to get him to come in but he refuses, she was finally able to get a chest x-ray done yesterday, and she did check finger oxygen at home 2 days ago which was normal Related Data Home Medications Medication Instructions Recorded Confirmed tamsulosin 0.4 mg capsule 0.4 mg PO DAILY 03/22/20 11/15/22 temozolomide 140 mg capsule 140 mg PO DAILY 03/22/20 11/15/22 gabapentin 300 mg capsule 300 mg PO HS 11/08/22 11/15/22 omeprazole 20 mg capsule,delayed 20 mg PO DAILY 11/08/22 11/15/22 release diclofenac sodium 1 % topical gel topical 08/09/23 08/09/23 metoclopramide HCl 10 mg tablet mg 08/09/23 vancomycin 250 mg capsule mg 08/09/23 Allergies Allergy/AdvReac Type Severity Reaction Status Date / Time oxycodone AdvReac Unknown Itching Verified 11/11/23 02:55 adhesive tape AdvReac Hives Verified 11/11/23 02:55 Review of Systems Review of Systems: CONST: No fever. HEENT: No sore throat C/V: Palpitations RESP: Persistent cough and shortness of breath GI: Loss of appetite : No dysuria. M/S: No joint pain. SKIN: No rash. NEURO: [No headache or focal numbness or weakness] PSYCH: [No depression] [facility] Past Medical History Medical History Colon cancer screening Family history of colon cancer GERD (gastroesophageal reflux disease) History of duodenal ulcer History of known metastasis to liver Nausea Oropharyngeal dysphagia Renal lesion Small cell lung cancer Tobacco abuse Urinary retention Surgical History Surgical History Hx of knee surgery Social History Social History Years smoked: 50 Smoking status: Light tobacco smoker Tobacco type: cigarettes Additional smoking assessment comments: advised patient has reduced cigarette usage to 2 cigarettes/day Substance use type: does not use Living arrangements: with family Gender identity (if verbalized by the patient): Male Spiritual care concerns: No Exam Narrative: EXAMINATION OF ORGAN SYSTEMS/BODY AREAS: Constitutional: Vital signs per nursing GENERAL:[No acute distress, non-toxic appearing.] HEAD: Normal with no signs of head trauma. EYES: EOMI, conjunctiva normal ENT: Hearing grossly intact LUNGS: Tachypneic, diminished lung sounds bilaterally HEART: Tachycardic ABD: [Soft], [nontender to palpation] EXT: Normal range of motion SKIN: [No rashes or lesions.] NEURO: [Alert and oriented x 3. No gross focal sensory or strength deficits.] PSYCH: Normal affect Course Vital Signs Vital signs: Vital Signs Temperature 97.2 F L 11/11/23 02:43 Pulse Rate 139 H 11/11/23 02:43 Respiratory Rate 28 H 11/11/23 02:43 Blood Pressure 134/73 11/11/23 02:43 Pulse Oximetry 88 L 11/11/23 02:43 Oxygen Delivery Room Air 11/11/23 02:43 Temperature 97.2 F L 11/11/23 02:43 Pulse Rate 99 11/11/23 07:30 Respiratory Rate 24 H 11/11/23 07:30 Blood Pressure 127/79 11/11/23 07:30 Pulse Oximetry 95 11/11/23 07:30 Oxygen Delivery Nasal Cannula 11/11/23 03:00 Oxygen Flow Rate 3 11/11/23 03:00 MDM - SOB/Dyspnea MDM Narrative Medical decision making narrative: Patient presents with shortness breath and cough, is on chemotherapy for lung cancer, he was hypoxic, tachycardic, and tachypneic on arrival, we immediately placed on monitors, sepsis workup initiated, antibiotics and IV fluids started. He had a chest x-ray done yesterday which I
[2023-11-11 04:08] LABS: CRP 18.5 mg/dL (<1.0)
--- NOTE | 2023-11-11 05:22 | PC.NURSE ---
Called phlebotomy in regards to pt blood cultures. Phlebotomy stated they would be down after morning run. Abx currently on hold until cultures are drawn.
[2023-11-11] MEDS: LORazepam INJ (*CRX) 2 MG/ML VIAL 0.5 MG IV PUSH (05:30)
[2023-11-11 06:29] LABS: Appearance Urine Cloudy (Clear); Bacteria Urine None Seen /hpf; Bilirubin Urine Negative (Negative); Blood Urine Negative (Negative); Color Urine Yellow (Yellow); Glucose Urine UA Negative (Negative); Ketones Urine 1+ mg/dL (Negative); Leukocyte Esterase Ur Negative LEU/UL (Negative); Need Manual Microscopic Reviewed; Nitrate Urine Negative (Negative); Non Pathogenic Casts >20; Protein Urine Trace mg/dL (Negative); RBC Urine 0-2 /hpf (0-2); Specific Grav Ur 1.024 (1.001-1.035); Squamous Epithelial Cell Urine Moderate /hpf (Few); Urobilinogen Urine 0.2 mg/dL (<2.0); WBC Urine 0-5 /hpf (0-3); pH Urine 5.5 (5.0-9.0)
[2023-11-11 06:30] LABS: Add Urine Microscopic? YES
[2023-11-11] MEDS: AZITHROMYCIN 500 MG/NS 250 ML 500 MG/250 ML BAG 250 MG IVPB (07:48)
--- NOTE | 2023-11-11 10:14 | ADMGEN ---
This patient, Tom Menon, was admitted to [facility] Surg Room 307-02 at 0915. Patient/family oriented to hospital policies and general routines including ID bracelet, bed and alarms, visiting hours, pain management, procedures, bathroom and other care routines, personal items, smoking policy, room service/diet, and visiting hours. Information on how to activate the Rapid Response Team has been discussed. Patient/Family are encouraged to report perceived risks to care and to ask questions if they do not understand what they are told or what they should do.
--- NOTE | 2023-11-11 12:54 | PM.IMHP ---
H&P: HPI History of Present Illness Date/Time: 11/11/23 12:55 Chief Complaint: Shortness of breath. Narrative: This is a 73-year-old male smoker currently receiving chemotherapy for metastatic small cell lung cancer who presented to the emergency department via private vehicle for evaluation of shortness of breath. The patient provides the following history. He has not been feeling well for over a week with cough productive of white phlegm, poor appetite, and increasing dyspnea on lesser and lesser exertion. He has a history of dysphagia status post esophageal dilatation several years ago and over the last several months he has had increasing issues with dysphagia though he has not had any episodes of overt aspiration recently that he can recall. He has not had a fever to his knowledge and he denies sinus congestion, sore throat, chest pain, pleuritic pain, vomiting, and diarrhea. He also denies sick contacts. Of note he had C diff towards the beginning of the year. In the ED: He was afebrile on arrival with stable blood pressures. He was tachypneic and tachycardic with an SpO2 of 86% on room air. Labs were significant for a WBC count of 7.6, hemoglobin 11.6, BUN 29, creatinine 0.90, lactic acid 1.8, CRP 18.5. Chest CTA was negative for PE but showed probable significant interval worsening of metastatic disease, extensive consolidation the left upper lobe and left perihilar region, and extensive ground-glass pulmonary disease interstitial thickening throughout the lungs. He received a 2 L normal saline bolus and doses of azithromycin and ceftriaxone and he was admitted to the floor in this setting for treatment of presumed pneumonia. Review of Systems Review of Systems: 12 systems were reviewed and are negative except for as per HPI. [facility] Past Medical History Medical History (Updated 11/11/23 @ 20:11 by Loren Peralta PA-C) C. difficile diarrhea Chronic obstructive pulmonary disease Duodenal ulcer Gastroesophageal reflux disease Oropharyngeal dysphagia Small cell lung cancer Originally diagnosed in February 2017. Patient of Dr. Prabhakar. Tobacco abuse Urinary retention Surgical History Surgical History History of arthroscopy of knee Family History Family History Other Colon cancer Social History Social History Social History: Surrogate medical decision maker: Alma Delia Menon, spouse. Code status: Full code. Years smoked: 50 Smoking status: Light tobacco smoker Additional smoking assessment comments: advised patient has reduced cigarette usage to 2 cigarettes/day Substance use type: does not use Do You Feel Safe in your Home?: Yes Lack of Transportation: No Lack of Food: Never True Current Housing: I Have Housing Concerned About Future Housing: No Difficulty Paying Gas/Electric Bills: No Difficulty Paying for Meds: No Currently Unemployed: No Education: Trade/Vocational Certificate Difficulty w/ Childcare or Family Care: No Living arrangements: with family Spiritual care concerns: No Meds Home Medications and Allergies Home Medications Medication Instructions Recorded Confirmed Type polyethylene glycol 3350 17 gram 17 gm PO DAILY PRN constipation 03/22/20 11/11/23 Rx oral powder packet (Miralax) #10 ea tamsulosin 0.4 mg capsule 0.4 mg PO DAILY 03/22/20 11/11/23 History ondansetron HCl 8 mg tablet 8 mg PO Q8H PRN nausea and 08/30/22 11/11/23 Rx vomiting #30 tabs gabapentin 300 mg capsule 300 mg PO HS 11/08/22 11/11/23 History omeprazole 20 mg capsule,delayed 20 mg PO DAILY 11/08/22 11/11/23 History release diclofenac sodium 1 % topical gel 1 ea topical BID 08/09/23 11/11/23 History methylprednisolone 4 mg tablets in See Rx Instructions PO .COMPLEX 08/09/23 11/11/23 Rx a dose pack ([facility]
[2023-11-11 13:41] LABS: NT Pro B Type Natriuretic Pept 511 pg/mL (19.9-100)
[2023-11-11] MEDS: IPRATROPIUM BR 0.02% INH SOLN 0.5 MG/2.5 ML VIAL INHALATION ×2 (14:47→19:59)
[2023-11-11 14:57] LABS: Procalcitonin 0.4 ng/mL
[2023-11-11] MEDS: DICLOFENAC SODIUM 1% 100 GM GEL (*BKC) 1 APPLIC TOPICAL (18:06)
[2023-11-11] MEDS: ENOXAPARIN 40 MG/0.4 ML SYRINGE SUB-Q (18:06)
[2023-11-11] MEDS: AMPICILLIN SULB 3 GM/NS 100 ML 3 GM/100 ML VIAL IVPB ×2 (18:06→23:40)
[2023-11-11] MEDS: VANCOMYCIN HCL 125 MG ORAL CAPSULE PO (18:06)
[2023-11-11] MEDS: guaiFENesin 12 HR 600 MG TABCR PO (21:31)
[2023-11-11] MEDS: NICOTINE (*PBKC) 14 MG PATCH 1 PATCH TRANSDERM (21:32)
[2023-11-11] MEDS: GABAPENTIN 300 MG CAPSULE PO (21:32)
[2023-11-11 22:14] LABS: Influenza A QL RT-PCR Negative (Negative); Influenza B QL RT-PCR Negative (Negative); RSV RNA, RT-PCR Negative (Negative); SARS-CoV-2 RNA PCR Negative (Negative)
[2023-11-12] VITALS (27 sets, daily range): BP systolic 108–133; BP diastolic 65–77; PULSE 82–150; RESP 18–26; TEMP 36.1–36.3; O2SAT 90–95; BMI 17.6
[2023-11-12] MEDS: IPRATROPIUM BR 0.02% INH SOLN 0.5 MG/2.5 ML VIAL INHALATION ×4 (01:17→20:20)
[2023-11-12] MEDS: SODIUM CHLOR 3% 15 ML NEB (RESPIRATORY THERAPY) 6 ML INHALATION (04:48)
[2023-11-12] MEDS: AMPICILLIN SULB 3 GM/NS 100 ML 3 GM/100 ML VIAL IVPB ×4 (06:42→23:45)
[2023-11-12 06:49] LABS: Hematocrit 31.4 % (42.0-52.0); Hemoglobin 9.8 g/dL (14.0-18.0); Mean Corpuscular HGB Conc 31.2 g/dl (32-36); Mean Corpuscular Hemoglobin 31.8 pg (26-34); Mean Corpuscular Volume 101.9 fl (80-100); Platelet Count Result 218 k/mm3 (150-375); Red Blood Count 3.08 M/mm3 (4.6-6.20); Red Cell Distribution Width 15.5 % (11.5-14.5); White Blood Count 5.9 K/mm3 (4.5-10.0)
[2023-11-12 07:01] LABS: Anion Gap 7 mmol/L (4-12); Blood Urea Nitrogen 20 mg/dL (9-20); Calcium 8.9 mg/dL (8.4-10.2); Carbon Dioxide 24 mmol/L (22-30); Chloride 106 mmol/L (98-107); Estimated CRCL calculation 67 ml/min; Estimated Glomerular Filt Rate > 60; Glucose 75 mg/dL (65-110); Magnesium 1.8 mg/dL (1.6-2.3); Potassium 3.2 mmol/L (3.4-5.0); Sodium 137 mmol/L (137-145)
--- NOTE | 2023-11-12 07:27 | P.PNIM_ITS ---
Progress Note: A&P Assessment and Plan (1) Acute respiratory failure with hypoxia: Code(s): J96.01 - Acute respiratory failure with hypoxia Status: Acute (2) Pneumonia: Code(s): J18.9 - Pneumonia, unspecified organism Status: Acute (3) History of Clostridioides difficile infection: Code(s): Z86.19 - Personal history of other infectious and parasitic diseases Status: Acute (4) Metastatic primary lung cancer: Code(s): C34.90 - Malignant neoplasm of unspecified part of unspecified bronchus or lung Status: Acute (5) Oropharyngeal dysphagia: Code(s): R13.12 - Dysphagia, oropharyngeal phase Status: Acute (6) Severe protein-calorie malnutrition: Code(s): E43 - Unspecified severe protein-calorie malnutrition Status: Acute Plan Acute respiratory failure with hypoxia secondary to pneumonia versus metastatic small cell carcinoma * Currently receiving chemotherapy for small cell lung carcinoma * Bronchodilators. * CTA reviewed worsening metastatic disease vs PNA * incentive spirometry while awake. * sputum culture ordered * influenza/COVID/RSV negative * respiratory panel pending * antibiotic therapy ampicillin/azithromycin due to patient's immunocompromise * supplemental oxygen therapy to maintain oxygen 92% wean as tolerated * Will likely need home O2 walk study prior to discharge * Smoking cessation counseling done * CMP/CBC daily * History of C diff/monitor for diarrhea * Probiotic prophylaxis Severe protein-calorie malnutrition * Secondary to metastatic lung carcinoma * Patient reports no appetite and difficulty swallowing * Supplements added * Check consulted for possible EGD and dilation * Megestrol added Dysphagia * EGD 11/15/2022: Balloon dilation of esophagus * Aspiration precautions * Modified barium swallow * GI consulted may need follow-up EGD and dilation Smoking * smoking cessation education * nicotine patch daily * remove at night * recommend prescription for nicotine patches at discharge Code status: Full code per patient DVT prophylaxis: Lovenox Stress ulcer prophylaxis: Protonix 40 daily PT/OT notes: Ambulatory Disposition: Patient continues admission for possible aspiration pneumonia secondary to dysphagia with worsening metastatic lung carcinoma patient is severely malnourished will likely need EGD for possible dilation will speak with patient and family regarding prognosis as well as possible palliative support. Time Spent With Patient Time with patient: 15 - 25 minutes Subjective Date/time seen: 11/12/23 07:27 Interval history: Admission: Medical Record Chief Complaint: Shortness of breath. Narrative: This is a 73-year-old male smoker currently receiving chemotherapy for metastatic small cell lung cancer who presented to the emergency department via private vehicle for evaluation of shortness of breath. The patient provides the following history. He has not been feeling well for over a week with cough productive of white phlegm, poor appetite, and increasing dyspnea on lesser and lesser exertion. He has a history of dysphagia status post esophageal dilatation several years ago and over the last several months he has had increasing issues with dysphagia though he has not had any episodes of overt aspiration recently that he can recall. He has not had a fever to his knowledge and he denies sinus congestion, sore throat, chest pain, pleuritic pain, vomiting, and diarrhea. He also denies sick
--- NOTE | 2023-11-12 07:27 | PM.IMPN ---
Progress Note: A&P Assessment and Plan (1) Acute respiratory failure with hypoxia: Code(s): J96.01 - Acute respiratory failure with hypoxia Status: Acute (2) Pneumonia: Code(s): J18.9 - Pneumonia, unspecified organism Status: Acute (3) History of Clostridioides difficile infection: Code(s): Z86.19 - Personal history of other infectious and parasitic diseases Status: Acute (4) Metastatic primary lung cancer: Code(s): C34.90 - Malignant neoplasm of unspecified part of unspecified bronchus or lung Status: Acute (5) Oropharyngeal dysphagia: Code(s): R13.12 - Dysphagia, oropharyngeal phase Status: Acute (6) Severe protein-calorie malnutrition: Code(s): E43 - Unspecified severe protein-calorie malnutrition Status: Acute Plan Acute respiratory failure with hypoxia secondary to pneumonia versus metastatic small cell carcinoma Currently receiving chemotherapy for small cell lung carcinoma Bronchodilators. CTA reviewed worsening metastatic disease vs PNA incentive spirometry while awake. sputum culture ordered influenza/COVID/RSV negative respiratory panel pending antibiotic therapy ampicillin/azithromycin due to patient's immunocompromise supplemental oxygen therapy to maintain oxygen 92% wean as tolerated Will likely need home O2 walk study prior to discharge Smoking cessation counseling done CMP/CBC daily History of C diff/monitor for diarrhea Probiotic prophylaxis Severe protein-calorie malnutrition Secondary to metastatic lung carcinoma Patient reports no appetite and difficulty swallowing Supplements added Check consulted for possible EGD and dilation Megestrol added Dysphagia EGD 11/15/2022: Balloon dilation of esophagus Aspiration precautions Modified barium swallow GI consulted may need follow-up EGD and dilation Smoking smoking cessation education nicotine patch daily remove at night recommend prescription for nicotine patches at discharge Code status: Full code per patient DVT prophylaxis: Lovenox Stress ulcer prophylaxis: Protonix 40 daily PT/OT notes: Ambulatory Disposition: Patient continues admission for possible aspiration pneumonia secondary to dysphagia with worsening metastatic lung carcinoma patient is severely malnourished will likely need EGD for possible dilation will speak with patient and family regarding prognosis as well as possible palliative support. Time Spent With Patient Time with patient: 15 - 25 minutes Subjective Date/time seen: 11/12/23 07:27 Interval history: Admission: Medical Record Chief Complaint: Shortness of breath. Narrative: This is a 73-year-old male smoker currently receiving chemotherapy for metastatic small cell lung cancer who presented to the emergency department via private vehicle for evaluation of shortness of breath. The patient provides the following history. He has not been feeling well for over a week with cough productive of white phlegm, poor appetite, and increasing dyspnea on lesser and lesser exertion. He has a history of dysphagia status post esophageal dilatation several years ago and over the last several months he has had increasing issues with dysphagia though he has not had any episodes of overt aspiration recently that he can recall. He has not had a fever to his knowledge and he denies sinus congestion, sore throat, chest pain, pleuritic pain, vomiting, and diarrhea. He also denies sick contacts. Of note he had C diff towards the beginning of the year. In the ED: He was afebrile on arrival with stable blood pressures. He was tachypneic and tachycardic with an SpO2 of 86% on room air. Labs were significant for a WBC count of 7.6, hemoglobin 11.6, BUN 29, creatinine 0.90, lactic acid 1.8, CRP 18.5. Chest CTA was negative for PE but showed probable significant interval worsening of metastatic disease, extensive consolidation
[2023-11-12] MEDS: TAMSULOSIN HCL 0.4 MG CAPSULE PO (08:10)
[2023-11-12] MEDS: PANTOPRAZOLE 40 MG TABLET PO (08:10)
[2023-11-12] MEDS: guaiFENesin 12 HR 600 MG TABCR PO ×2 (08:10→21:16)
[2023-11-12] MEDS: AZITHROMYCIN 250 MG TABLET 500 MG PO (08:10)
[2023-11-12] MEDS: ENOXAPARIN 40 MG/0.4 ML SYRINGE SUB-Q (08:10)
[2023-11-12] MEDS: DICLOFENAC SODIUM 1% 100 GM GEL (*BKC) 1 APPLIC TOPICAL ×2 (08:11→16:08)
--- NOTE | 2023-11-12 08:48 | PC.NURSE ---
Anne Lindsey Pier Runner notified of patient on tele and heart rate jumped up in 140's and staying tachy for last 5 min.m Bp 127/72, patient asymptomatic.
[2023-11-12] MEDS: METOPROLOL TARTRATE INJ 5 MG/5 ML VIAL IV PUSH (09:05)
--- NOTE | 2023-11-12 09:23 | PCSTNOTE ---
MBS on hold this morning as patient has high heart rate and being treated for that at the moment. Will try again later.
[2023-11-12] MEDS: carvediloL 6.25 MG TABLET PO ×2 (12:18→21:16)
[2023-11-12] MEDS: ACIDOPHILUS/BULGARICUS CHEWABLE TABLET 1 TABLET PO ×3 (12:18→21:16)
[2023-11-12] MEDS: ACETAMINOPHEN 325 MG TABLET 650 MG PO (12:59)
[2023-11-12] MEDS: MEGESTROL ACETATE (*CHEMO) 40 MG TABLET PO ×3 (12:59→21:16)
--- NOTE | 2023-11-12 13:08 | PC.NURSE ---
Anne Lindsey BIKE TECHNICIAN notified of patient c/o right shoulder pain at a 10. Tylenol given until able to reach . Evelyn stated that she will put new orders in for stronger pain meds.
--- NOTE | 2023-11-12 15:35 | PCSTNOTE ---
Please refer to the Modified Barium Swallow Evaluation in the EMR.
--- NOTE | 2023-11-12 15:40 | WPDGICN ---
Assessment and Plan Assessment and plan (1) Oropharyngeal dysphagia: Code(s): R13.12 - Dysphagia, oropharyngeal phase Status: Acute Assessment and Plan: he has esophageal ring but was wide open I do not think that this is causing choking sensation at throat level, besides he is sick to undergo anesthesia with egd right now if symptom worsens then we can always consider to do egd later on, he is also eating regular food for the most part (2) Acute respiratory failure with hypoxia: Code(s): J96.01 - Acute respiratory failure with hypoxia Status: Acute Assessment and Plan: lung cancer with pneumonia (3) Metastatic primary lung cancer: Code(s): C34.90 - Malignant neoplasm of unspecified part of unspecified bronchus or lung Status: Acute (4) Severe protein-calorie malnutrition: Code(s): E43 - Unspecified severe protein-calorie malnutrition Status: Acute (5) Pneumonia: Code(s): J18.9 - Pneumonia, unspecified organism Status: Acute (6) Tobacco abuse: Code(s): Z72.0 - Tobacco use Status: Acute GI Consult Note Consult date/time: 11/12/23 15:40 Reason for consult: dysphagia HPI: Tom Menon is a 73 year old male with history of metastatic small cell lung cancer on treatment who presented to the emergency department via private vehicle for evaluation of shortness of breath. He experienced more shortness of breath for last week and also productive cough of white phlegm, poor appetite. Last year I did EGD because dysphagia, noted non-obstructive esophageal ring dilated up to 20 mm (it was wide open) then ring further disrupted with biopsy forceps. ER evaluation was tachypneic and tachycardic with an SpO2 of 86% on room air. Labs were significant for a WBC count of 7.6, hemoglobin 11.6, BUN 29, creatinine 0.90, lactic acid 1.8, CRP 18.5. Chest CTA was negative for PE but showed probable significant interval worsening of metastatic disease, extensive consolidation the left upper lobe and left perihilar region, and extensive ground-glass pulmonary disease interstitial thickening throughout the lungs. He has intermittent choking but this is at throat level otherwise he is eating regular food. Review of Systems Constitutional: Constitutional: Denies chills Eyes: Eyes: Denies blurry vision ENT: Reports Normal hearing present Cardiovascular: Cardiovascular: Denies chest pain Respiratory: Respiratory: Reports cough and Reports dyspnea on exertion Gastrointestinal: Gastrointestinal: Denies abdominal pain Genitourinary: Genitourinary: Denies dysuria Musculoskeletal: Musculoskeletal: Denies neck pain Integumentary/Breasts: Skin/Breast: Denies rash Neurologic: Denies Abnormal speech present Psychiatric: Psychiatric: Denies behavioral changes [facility] Past Medical History Medical History (Updated 11/12/23 @ 12:23 by Anne Lindsey, PLUMBING INSTALLER) C. difficile diarrhea Chronic obstructive pulmonary disease Duodenal ulcer Gastroesophageal reflux disease Oropharyngeal dysphagia Small cell lung cancer Originally diagnosed in February 2017. Patient of Dr. Prabhakar. Tobacco abuse Urinary retention Surgical History Surgical History History of arthroscopy of knee Family History Family History Other Colon cancer Social History Social History Social History: Surrogate medical decision maker: Alma Delia Menon, spouse. Code status: Full code. Years smoked: 50 Smoking status: Light tobacco smoker Additional smoking assessment comments: advised patient has reduced cigarette usage to 2 cigarettes/day Substance use type: does not use Do You Feel Safe in your Home?: Yes Lack of Transportation: No Lack of Food: Never True Current Housing: I Have Housing
[2023-11-12] MEDS: HYDROcodone/acetaminophen (*CRX) 7.5-325 MG TABLET 1 TAB PO (16:08)
[2023-11-12] MEDS: GABAPENTIN 300 MG CAPSULE PO (21:16)
[2023-11-12] MEDS: SODIUM CHLORIDE 0.9% IV 100 ML (23:46)
[2023-11-13] VITALS (21 sets, daily range): BP systolic 107–144; BP diastolic 67–71; PULSE 68–128; RESP 16–24; TEMP 36.2–36.5; O2SAT 86–100
--- NOTE | 2023-11-13 03:23 | PCRCNOTE ---
Patient refused his 0200 updraft treatment stating he did not want to be awakened. Patient stated he is not getting much sleep. Treatment to resume at 0800.
[2023-11-13] MEDS: SODIUM CHLOR 3% 15 ML NEB (RESPIRATORY THERAPY) 6 ML INHALATION (05:14)
--- NOTE | 2023-11-13 05:21 | PCRCNOTE ---
Sputum induction attempted, no sputum obtained. Sputum cup left at bedside. Instructed pt to alert RN if he is able to produce a specimen.
[2023-11-13] MEDS: AMPICILLIN SULB 3 GM/NS 100 ML 3 GM/100 ML VIAL IVPB ×4 (05:23→23:14)
--- NOTE | 2023-11-13 05:44 | PC.NURSE ---
pt c/o shortness of breath and told this RN it's hard to breathe . SpO2 86% on 5L NC. Dr. Vallejo called, and order placed for gomez bautista PRN. Upon re-entering pt's room, SpO2 was 100% and respirations returned to baseline. Pt stated he was really worked up, and finally calmed down . Pt remains on 5L NC at this time
--- NOTE | 2023-11-13 05:46 | PCRCNOTE ---
Stat duoneb not given due to patient stating he now feels fine and his O2 saturation has improved. Patient was experiencing a coughing spell that made him slightly anxious. Pt will be receiving an updraft treatment at 0800.
[2023-11-13 06:38] LABS: Hemoglobin 10.3 g/dL (14.0-18.0); Mean Corpuscular HGB Conc 31.2 g/dl (32-36); Mean Corpuscular Hemoglobin 31.8 pg (26-34); Mean Corpuscular Volume 101.9 fl (80-100); Platelet Count Result 230 k/mm3 (150-375); Red Blood Count 3.24 M/mm3 (4.6-6.20); Red Cell Distribution Width 15.1 % (11.5-14.5); White Blood Count 7.9 K/mm3 (4.5-10.0)
[2023-11-13 06:47] LABS: Alanine Aminotransferase 12 U/L (6-50); Albumin Level 2.9 g/dL (3.5-5.1); Alkaline Phosphatase 151 U/L (38-126); Anion Gap 6 mmol/L (4-12); Aspartate Amino Transferase 28 U/L (17-59); Bilirubin,Total 0.5 mg/dL (0.2-1.3); Blood Urea Nitrogen 23 mg/dL (9-20); Calcium 9.3 mg/dL (8.4-10.2); Carbon Dioxide 27 mmol/L (22-30); Chloride 106 mmol/L (98-107); Estimated CRCL calculation 67 ml/min; Estimated Glomerular Filt Rate > 60; Glucose 84 mg/dL (65-110); Potassium 4.1 mmol/L (3.4-5.0); Sodium 139 mmol/L (137-145)
--- NOTE | 2023-11-13 08:03 | P.PNIM_ITS ---
Progress Note: A&P Assessment and Plan (1) Acute respiratory failure with hypoxia: Code(s): J96.01 - Acute respiratory failure with hypoxia Status: Acute (2) Pneumonia: Code(s): J18.9 - Pneumonia, unspecified organism Status: Acute (3) History of Clostridioides difficile infection: Code(s): Z86.19 - Personal history of other infectious and parasitic diseases Status: Acute (4) Metastatic primary lung cancer: Code(s): C34.90 - Malignant neoplasm of unspecified part of unspecified bronchus or lung Status: Acute (5) Oropharyngeal dysphagia: Code(s): R13.12 - Dysphagia, oropharyngeal phase Status: Acute (6) Severe protein-calorie malnutrition: Code(s): E43 - Unspecified severe protein-calorie malnutrition Status: Acute Plan Acute respiratory failure with hypoxia secondary to aspiration pneumonia versus metastatic small cell carcinoma * Currently receiving chemotherapy for small cell lung carcinoma * Bronchodilators. * CTA reviewed worsening metastatic disease vs PNA * incentive spirometry while awake. * sputum culture ordered * influenza/COVID/RSV negative * respiratory panel pending * antibiotic therapy ampicillin/azithromycin due to patient's immunocompromise * supplemental oxygen therapy to maintain oxygen 92% wean as tolerated currently 5 L nasal cannula * Will likely need home O2 walk study prior to discharge * Smoking cessation counseling done * CMP/CBC daily * History of C diff/monitor for diarrhea * Probiotic prophylaxis Severe protein-calorie malnutrition * Secondary to metastatic lung carcinoma * Consult dietitian * Patient reports no appetite and difficulty swallowing * Supplements added * Check consulted for possible EGD and dilation * Megestrol added Dysphagia * EGD 11/15/2022: Balloon dilation of esophagus * Aspiration precautions * Modified barium swallow * GI consulted may need follow-up EGD and dilation 11/12: * MBS showedPharyngeal dysphagia with laryngeal penetration and expected subsequent aspiration * changed diet to minced level 5 * GI states no intervention at this time Smoking * smoking cessation education * nicotine patch daily * remove at night * recommend prescription for nicotine patches at discharge Code status: Full code per patient DVT prophylaxis: Lovenox Stress ulcer prophylaxis: Protonix 40 daily PT/OT notes: Ambulatory Disposition: Patient continues admission for aspiration pneumonia secondary to dysphagia with worsening metastatic lung carcinoma patient is severely malnourished. Patient in the room to walk study prior to discharge, continue to wean oxygen as tolerated Time Spent With Patient Time with patient: 15 - 25 minutes Subjective Date/time seen: 11/13/23 08:03 Interval history: Admission: Medical Record Chief Complaint: Shortness of breath. Narrative: This is a 73-year-old male smoker currently receiving chemotherapy for metastatic small cell lung cancer who presented to the emergency department via private vehicle for evaluation of shortness of breath. The patient provides the following history. He has not been feeling well for over a week with cough productive of white phlegm, poor appetite, and increasing dyspnea on lesser and lesser exertion. He has a history of dysphagia status post esophageal dilatation several years ago and over the last several months he has had increasing issues with dysphagia though he has not had any episodes of ove
--- NOTE | 2023-11-13 08:03 | PM.IMPN ---
Progress Note: A&P Assessment and Plan (1) Acute respiratory failure with hypoxia: Code(s): J96.01 - Acute respiratory failure with hypoxia Status: Acute (2) Pneumonia: Code(s): J18.9 - Pneumonia, unspecified organism Status: Acute (3) History of Clostridioides difficile infection: Code(s): Z86.19 - Personal history of other infectious and parasitic diseases Status: Acute (4) Metastatic primary lung cancer: Code(s): C34.90 - Malignant neoplasm of unspecified part of unspecified bronchus or lung Status: Acute (5) Oropharyngeal dysphagia: Code(s): R13.12 - Dysphagia, oropharyngeal phase Status: Acute (6) Severe protein-calorie malnutrition: Code(s): E43 - Unspecified severe protein-calorie malnutrition Status: Acute Plan Acute respiratory failure with hypoxia secondary to aspiration pneumonia versus metastatic small cell carcinoma Currently receiving chemotherapy for small cell lung carcinoma Bronchodilators. CTA reviewed worsening metastatic disease vs PNA incentive spirometry while awake. sputum culture ordered influenza/COVID/RSV negative respiratory panel pending antibiotic therapy ampicillin/azithromycin due to patient's immunocompromise supplemental oxygen therapy to maintain oxygen 92% wean as tolerated currently 5 L nasal cannula Will likely need home O2 walk study prior to discharge Smoking cessation counseling done CMP/CBC daily History of C diff/monitor for diarrhea Probiotic prophylaxis Severe protein-calorie malnutrition Secondary to metastatic lung carcinoma Consult dietitian Patient reports no appetite and difficulty swallowing Supplements added Check consulted for possible EGD and dilation Megestrol added Dysphagia EGD 11/15/2022: Balloon dilation of esophagus Aspiration precautions Modified barium swallow GI consulted may need follow-up EGD and dilation 11/12: MBS showedPharyngeal dysphagia with laryngeal penetration and expected subsequent aspiration changed diet to minced level 5 GI states no intervention at this time Smoking smoking cessation education nicotine patch daily remove at night recommend prescription for nicotine patches at discharge Code status: Full code per patient DVT prophylaxis: Lovenox Stress ulcer prophylaxis: Protonix 40 daily PT/OT notes: Ambulatory Disposition: Patient continues admission for aspiration pneumonia secondary to dysphagia with worsening metastatic lung carcinoma patient is severely malnourished. Patient in the room to walk study prior to discharge, continue to wean oxygen as tolerated Time Spent With Patient Time with patient: 15 - 25 minutes Subjective Date/time seen: 11/13/23 08:03 Interval history: Admission: Medical Record Chief Complaint: Shortness of breath. Narrative: This is a 73-year-old male smoker currently receiving chemotherapy for metastatic small cell lung cancer who presented to the emergency department via private vehicle for evaluation of shortness of breath. The patient provides the following history. He has not been feeling well for over a week with cough productive of white phlegm, poor appetite, and increasing dyspnea on lesser and lesser exertion. He has a history of dysphagia status post esophageal dilatation several years ago and over the last several months he has had increasing issues with dysphagia though he has not had any episodes of overt aspiration recently that he can recall. He has not had a fever to his knowledge and he denies sinus congestion, sore throat, chest pain, pleuritic pain, vomiting, and diarrhea. He also denies sick contacts. Of note he had C diff towards the beginning of the year. In the ED: He was afebrile on arrival with stable blood pressures. He was tachypneic and tachycardic with an SpO2 of 86% on room air. Labs were significant for a WBC count of 7.6, hemoglobin 11.6, B
[2023-11-13] MEDS: IPRATROPIUM BR 0.02% INH SOLN 0.5 MG/2.5 ML VIAL INHALATION ×3 (08:10→20:20)
[2023-11-13] MEDS: guaiFENesin 12 HR 600 MG TABCR PO ×2 (08:30→21:10)
[2023-11-13] MEDS: PANTOPRAZOLE 40 MG TABLET PO (08:30)
[2023-11-13] MEDS: TAMSULOSIN HCL 0.4 MG CAPSULE PO (08:30)
[2023-11-13] MEDS: AZITHROMYCIN 250 MG TABLET 500 MG PO (08:30)
[2023-11-13] MEDS: carvediloL 6.25 MG TABLET PO ×2 (08:30→21:12)
[2023-11-13] MEDS: NICOTINE (*PBKC) 14 MG PATCH 1 PATCH TRANSDERM (08:31)
[2023-11-13] MEDS: ACIDOPHILUS/BULGARICUS CHEWABLE TABLET 1 TABLET PO ×4 (08:31→21:09)
[2023-11-13] MEDS: MEGESTROL ACETATE (*CHEMO) 40 MG TABLET PO ×4 (08:31→21:10)
[2023-11-13] MEDS: DICLOFENAC SODIUM 1% 100 GM GEL (*BKC) 1 APPLIC TOPICAL ×2 (08:32→17:11)
[2023-11-13] MEDS: ENOXAPARIN 40 MG/0.4 ML SYRINGE SUB-Q (08:32)
--- NOTE | 2023-11-13 11:45 | PCDIET ---
Diet ordered as minced and moist level 5, mildly thick level 2 liquids following MBS and speech recommendations.
[2023-11-13] MEDS: HYDROcodone/acetaminophen (*CRX) 7.5-325 MG TABLET 1 TAB PO ×2 (13:16→17:13)
--- NOTE | 2023-11-13 14:27 | WPDGIPROGNO ---
Progress Note: A&P Assessment and Plan (1) Acute respiratory failure with hypoxia: Code(s): J96.01 - Acute respiratory failure with hypoxia Status: Acute Assessment and Plan: improving, unfortunately he has advanced lung cancer (2) Oropharyngeal dysphagia: Code(s): R13.12 - Dysphagia, oropharyngeal phase Status: Acute Assessment and Plan: no need to repeat EGD, mostly laryngeal issue- reviewed barium study and showed- Reduced laryngeal elevation and tongue base retraction. There is vallecular and piriform sinus residue. There is laryngeal penetration which is expected to result in increased risk of aspiration although no judson aspiration was observed. he is on special diet will follow as needed (3) Metastatic primary lung cancer: Code(s): C34.90 - Malignant neoplasm of unspecified part of unspecified bronchus or lung Status: Acute (4) Severe protein-calorie malnutrition: Code(s): E43 - Unspecified severe protein-calorie malnutrition Status: Acute (5) Gastroesophageal reflux disease: Code(s): K21.9 - Gastro-esophageal reflux disease without esophagitis Status: Acute Subjective Date/time seen: 11/13/23 14:27 Interval history: no new issues but breathing better, he just had barium swallow evaluation he is careful with eating. Review of Systems Review of Systems: All systems reviewed & are unremarkable except as noted in HPI and below Exam Const: Other: chronically ill appearing, thin HENMT: Face/Nose/Sinus: Normal nares present Eyes: General: appearance normal, both eyes and all related structures Neck: Neck: supple Resp: Auscultation: rhonchi Cardio: Rate: regular rate GI: GI Palp: Yes Soft to palpation and No Tenderness to palpation present (GI) Auscultation: normal bowel sounds Skin: General skin exam: normal color Neuro: Speech: normal speech Motor exam (neuro): 5/5 motor strength present throughout Extrem: General: normal to inspection Psych: Affect: normal affect Objective Data Vital Signs Vital Signs: Vital Signs - 24 hr 11/12/23 16:00 11/12/23 20:21 11/12/23 20:23 Temperature Pulse Rate 85 84 84 Respiratory Rate 24 H Blood Pressure Pulse Oximetry 92 Oxygen Delivery Nasal Cannula Oxygen Flow Rate 5 Fraction of Inspired Oxygen 11/12/23 20:28 11/12/23 21:16 11/12/23 20:33 Temperature 97 F L Pulse Rate 88 83 89 Respiratory Rate 24 H 20 Blood Pressure 118/73 Pulse Oximetry 90 Oxygen Delivery Oxygen Flow Rate Fraction of Inspired Oxygen 11/12/23 20:00 11/12/23 20:00 11/13/23 04:00 Temperature Pulse Rate 83 88 Respiratory Rate Blood Pressure Pulse Oximetry 90 Oxygen Delivery Nasal Cannula Oxygen Flow Rate 5 Fraction of Inspired Oxygen 11/13/23 00:00 11/13/23 05:14 11/13/23 05:45 Temperature Pulse Rate 76 81 Respiratory Rate 24 H Blood Pressure Pulse Oximetry 100 Oxygen Delivery Nasal Cannula Oxygen Flow Rate 5 Fraction of Inspired Oxygen 11/13/23 05:00 11/13/23 06:26 11/13/23 08:10 Temperature 97.1 F L Pulse Rate 89 Respiratory Rate 16 Blood Pressure 131/70 Pulse Oximetry 86 L 97 92 Oxygen Delivery Nasal Cannula Nasal Cannula Oxygen Flow Rate 5 5 Fraction of Inspired Oxygen 40 11/13/23 08:10 11/13/23 08:23 11/13/23 08:30 Temperature Pulse Rate 90 89 95 Respiratory Rate 23 H 23 H Blood Pressure Pulse Oximetry Oxygen Delivery Oxygen Flow Rate Fraction of Inspired Oxygen 11/13/23 08:30 11/13/23 08:30 11/13/23 13:25 Temperature Pulse Rate 95 97 Respiratory Rate 22 H Blood Pressure 144/71 H Pulse Oximetry 100 100 Oxygen Delivery Nasal Cannula Oxygen Flow Rate 5 Fraction of Inspired Oxygen 11/13/23 13:34 Temperature Pulse Rate 92 Respiratory Rate 22 H Blood Pressure Pulse Oximetry Oxygen Delivery Oxygen Flow Rate Fraction
[2023-11-13] MEDS: GABAPENTIN 300 MG CAPSULE PO (21:09)
[2023-11-14] VITALS (19 sets, daily range): BP systolic 115–144; BP diastolic 67–75; PULSE 70–110; RESP 18–22; TEMP 36.4–36.7; O2SAT 90–97
[2023-11-14] MEDS: SODIUM CHLOR 3% 15 ML NEB (RESPIRATORY THERAPY) 6 ML INHALATION (05:45)
[2023-11-14] MEDS: AMPICILLIN SULB 3 GM/NS 100 ML 3 GM/100 ML VIAL IVPB (05:47)
--- NOTE | 2023-11-14 06:02 | PCRCNOTE ---
Sputum induction administered, no sputum obtained. Specimen cup left on bedside table. Pt instructed to notify RN if he produces sputum.
[2023-11-14 06:30] LABS: Hematocrit 33.9 % (42.0-52.0); Hemoglobin 10.7 g/dL (14.0-18.0); Mean Corpuscular HGB Conc 31.6 g/dl (32-36); Mean Corpuscular Hemoglobin 31.8 pg (26-34); Mean Corpuscular Volume 100.9 fl (80-100); Mean Platelet Volume 9.3 fl (7.4-10.4); Platelet Count Result 234 k/mm3 (150-375); Red Blood Count 3.36 M/mm3 (4.6-6.20); Red Cell Distribution Width 14.9 % (11.5-14.5); White Blood Count 7.5 K/mm3 (4.5-10.0)
[2023-11-14 06:45] LABS: Alanine Aminotransferase 12 U/L (6-50); Albumin Level 3.1 g/dL (3.5-5.1); Alkaline Phosphatase 164 U/L (38-126); Anion Gap 3 mmol/L (4-12); Aspartate Amino Transferase 27 U/L (17-59); Bilirubin,Total 0.5 mg/dL (0.2-1.3); Blood Urea Nitrogen 24 mg/dL (9-20); Calcium 9.4 mg/dL (8.4-10.2); Carbon Dioxide 31 mmol/L (22-30); Chloride 105 mmol/L (98-107); Estimated CRCL calculation 68 ml/min; Estimated Glomerular Filt Rate > 60; Glucose 90 mg/dL (65-110); Potassium 3.2 mmol/L (3.4-5.0); Sodium 139 mmol/L (137-145)
[2023-11-14] MEDS: IPRATROPIUM BR 0.02% INH SOLN 0.5 MG/2.5 ML VIAL INHALATION ×3 (07:01→20:17)
--- NOTE | 2023-11-14 07:23 | P.PNIM_ITS ---
Progress Note: A&P Assessment and Plan (1) Acute respiratory failure with hypoxia: Code(s): J96.01 - Acute respiratory failure with hypoxia Status: Acute (2) Pneumonia: Code(s): J18.9 - Pneumonia, unspecified organism Status: Acute (3) History of Clostridioides difficile infection: Code(s): Z86.19 - Personal history of other infectious and parasitic diseases Status: Acute (4) Metastatic primary lung cancer: Code(s): C34.90 - Malignant neoplasm of unspecified part of unspecified bronchus or lung Status: Acute (5) Oropharyngeal dysphagia: Code(s): R13.12 - Dysphagia, oropharyngeal phase Status: Acute (6) Severe protein-calorie malnutrition: Code(s): E43 - Unspecified severe protein-calorie malnutrition Status: Acute Plan Acute respiratory failure with hypoxia secondary to aspiration pneumonia versus metastatic small cell carcinoma * Currently receiving chemotherapy for small cell lung carcinoma * Bronchodilators. * CTA reviewed worsening metastatic disease vs PNA * incentive spirometry while awake. * sputum culture ordered * influenza/COVID/RSV negative * respiratory panel pending * antibiotic therapy ampicillin/azithromycin due to patient's immunocompromise * supplemental oxygen therapy to maintain oxygen 92% wean as tolerated currently 5 L nasal cannula * Will likely need home O2 walk study prior to discharge * Smoking cessation counseling done * CMP/CBC daily * History of C diff/monitor for diarrhea * Probiotic prophylaxis 11/13: * Deescalating antibiotics to p.o. Augmentin * Will attempt to wean oxygen * Home O2 eval Severe protein-calorie malnutrition * Secondary to metastatic lung carcinoma * Consult dietitian * Patient reports no appetite and difficulty swallowing * Supplements added * Check consulted for possible EGD and dilation * Megestrol added Dysphagia * EGD 11/15/2022: Balloon dilation of esophagus * Aspiration precautions * Modified barium swallow * GI consulted may need follow-up EGD and dilation 11/12: * MBS showedPharyngeal dysphagia with laryngeal penetration and expected subsequent aspiration * changed diet to minced level 5 * GI states no intervention at this time Smoking * smoking cessation education * nicotine patch daily * remove at night * recommend prescription for nicotine patches at discharge Code status: Full code per patient DVT prophylaxis: Lovenox Stress ulcer prophylaxis: Protonix 40 daily PT/OT notes: Ambulatory Disposition: Patient continues admission for aspiration pneumonia secondary to dysphagia with worsening metastatic lung carcinoma patient is severely malnourished. Patient in the room to walk study prior to discharge, continue to wean oxygen as tolerated Time Spent With Patient Time with patient: 15 - 25 minutes Subjective Date/time seen: 11/14/23 07:23 Interval history: Admission: Medical Record Chief Complaint: Shortness of breath. Narrative: This is a 73-year-old male smoker currently receiving chemotherapy for met astatic small cell lung cancer who presented to the emergency department via private vehicle for evaluation of shortness of breath. The patient provides the following history. He has not been feeling well for over a week with cough productive of white phlegm, poor appetite, and increasing dyspnea on lesser and lesser exertion. He has a history of dysphagia status post esophageal dilatation several years ago and ov
--- NOTE | 2023-11-14 07:23 | PM.IMPN ---
Progress Note: A&P Assessment and Plan (1) Acute respiratory failure with hypoxia: Code(s): J96.01 - Acute respiratory failure with hypoxia Status: Acute (2) Pneumonia: Code(s): J18.9 - Pneumonia, unspecified organism Status: Acute (3) History of Clostridioides difficile infection: Code(s): Z86.19 - Personal history of other infectious and parasitic diseases Status: Acute (4) Metastatic primary lung cancer: Code(s): C34.90 - Malignant neoplasm of unspecified part of unspecified bronchus or lung Status: Acute (5) Oropharyngeal dysphagia: Code(s): R13.12 - Dysphagia, oropharyngeal phase Status: Acute (6) Severe protein-calorie malnutrition: Code(s): E43 - Unspecified severe protein-calorie malnutrition Status: Acute Plan Acute respiratory failure with hypoxia secondary to aspiration pneumonia versus metastatic small cell carcinoma Currently receiving chemotherapy for small cell lung carcinoma Bronchodilators. CTA reviewed worsening metastatic disease vs PNA incentive spirometry while awake. sputum culture ordered influenza/COVID/RSV negative respiratory panel pending antibiotic therapy ampicillin/azithromycin due to patient's immunocompromise supplemental oxygen therapy to maintain oxygen 92% wean as tolerated currently 5 L nasal cannula Will likely need home O2 walk study prior to discharge Smoking cessation counseling done CMP/CBC daily History of C diff/monitor for diarrhea Probiotic prophylaxis 11/13: Deescalating antibiotics to p.o. Augmentin Will attempt to wean oxygen Home O2 eval Severe protein-calorie malnutrition Secondary to metastatic lung carcinoma Consult dietitian Patient reports no appetite and difficulty swallowing Supplements added Check consulted for possible EGD and dilation Megestrol added Dysphagia EGD 11/15/2022: Balloon dilation of esophagus Aspiration precautions Modified barium swallow GI consulted may need follow-up EGD and dilation 11/12: MBS showedPharyngeal dysphagia with laryngeal penetration and expected subsequent aspiration changed diet to minced level 5 GI states no intervention at this time Smoking smoking cessation education nicotine patch daily remove at night recommend prescription for nicotine patches at discharge Code status: Full code per patient DVT prophylaxis: Lovenox Stress ulcer prophylaxis: Protonix 40 daily PT/OT notes: Ambulatory Disposition: Patient continues admission for aspiration pneumonia secondary to dysphagia with worsening metastatic lung carcinoma patient is severely malnourished. Patient in the room to walk study prior to discharge, continue to wean oxygen as tolerated Time Spent With Patient Time with patient: 15 - 25 minutes Subjective Date/time seen: 11/14/23 07:23 Interval history: Admission: Medical Record Chief Complaint: Shortness of breath. Narrative: This is a 73-year-old male smoker currently receiving chemotherapy for metastatic small cell lung cancer who presented to the emergency department via private vehicle for evaluation of shortness of breath. The patient provides the following history. He has not been feeling well for over a week with cough productive of white phlegm, poor appetite, and increasing dyspnea on lesser and lesser exertion. He has a history of dysphagia status post esophageal dilatation several years ago and over the last several months he has had increasing issues with dysphagia though he has not had any episodes of overt aspiration recently that he can recall. He has not had a fever to his knowledge and he denies sinus congestion, sore throat, chest pain, pleuritic pain, vomiting, and diarrhea. He also denies sick contacts. Of note he had C diff towards the beginning of the year. In the ED: He was afebrile on arrival with stable blood pressures. He was tachypneic and tachycardic
[2023-11-14] MEDS: MEGESTROL ACETATE (*CHEMO) 40 MG TABLET PO ×4 (08:53→20:11)
[2023-11-14] MEDS: PANTOPRAZOLE 40 MG TABLET PO (08:54)
[2023-11-14] MEDS: AZITHROMYCIN 250 MG TABLET 500 MG PO (08:54)
[2023-11-14] MEDS: carvediloL 6.25 MG TABLET PO ×2 (08:54→20:11)
[2023-11-14] MEDS: TAMSULOSIN HCL 0.4 MG CAPSULE PO (08:55)
[2023-11-14] MEDS: guaiFENesin 12 HR 600 MG TABCR PO ×2 (08:55→20:10)
[2023-11-14] MEDS: DICLOFENAC SODIUM 1% 100 GM GEL (*BKC) 1 APPLIC TOPICAL ×2 (08:55→17:17)
[2023-11-14] MEDS: ACIDOPHILUS/BULGARICUS CHEWABLE TABLET 1 TABLET PO ×4 (09:00→20:10)
[2023-11-14] MEDS: ENOXAPARIN 40 MG/0.4 ML SYRINGE SUB-Q (09:03)
[2023-11-14] MEDS: NICOTINE (*PBKC) 14 MG PATCH 1 PATCH TRANSDERM (09:03)
[2023-11-14] MEDS: AMOXICILLIN/CLAVULANATE K 875-125 MG TAB 1 TABLET PO ×2 (10:42→20:11)
[2023-11-14] MEDS: POTASSIUM CHLORIDE 20 MEQ ER TABLET 40 MEQ PO (10:42)
--- NOTE | 2023-11-14 11:21 | PCNFU ---
Nutrition Follow-Up Complete: 1. Severe malnutrition related to chronic lung cancer, loss of appetite, early satiety as evidenced by weight loss -22%/1 year; intakes <75% needs >1 month; severe muscle wasting and fat loss to temporalis, ribs, shoulders, clavicles, buccal fat pads. 2. Swallowing difficulties related to abnormal function as evidenced by report of choking, history of esophageal dilation. Improve PO intake to at least 50% meals and supplements - Not progressing Textures to meet patient needs - Minced & moist L5, mildly thick liquids L2 Goal: Pt current nutrition is Heart healthy diet. Ensure compact BID for additional 220 kcal and 9 g protein each. Nutrition recommendation: Talk to patient about a feeding tube; encourage PO intakes. Continue current nutrition care plan and orders Last recorded weight is 51.301 kg. Bowel Motility: +3 BMs 11/11/23 Labs Reviewed: Hgb 10.7, Hct 33.9, Alb 3.1, K+ 3.2, BUN 24, Cre 0.6 Meds Noted: protonix Skin: Stage II L ischium Additional Notes: Pt would benefit from a feeding tube but he says he does not want that. He thought it was a tube shoved down there and he did listen to explanation of PEG tube. Can make own medical decisions. He says he eats better at home, [employer] and [place] food are examples; appetite is poor and he does not like food here. I urged him to have his family bring food in. Monitoring intakes, weights, labs, swallowing ability, supplement tolerance, plan of care Follow up in 3 days
[2023-11-14] MEDS: GABAPENTIN 300 MG CAPSULE PO (20:11)
[2023-11-14] MEDS: HYDROcodone/acetaminophen (*CRX) 7.5-325 MG TABLET 1 TAB PO (21:03)
[2023-11-15] VITALS (35 sets, daily range): BP systolic 110–126; BP diastolic 61–73; PULSE 80–108; RESP 18–22; TEMP 36.4–36.6; O2SAT 82–100
[2023-11-15] MEDS: IPRATROPIUM BR 0.02% INH SOLN 0.5 MG/2.5 ML VIAL INHALATION ×4 (02:11→20:13)
[2023-11-15 05:54] LABS: Hematocrit 32.1 % (42.0-52.0); Hemoglobin 9.8 g/dL (14.0-18.0); Mean Corpuscular HGB Conc 30.5 g/dl (32-36); Mean Corpuscular Hemoglobin 31.3 pg (26-34); Mean Corpuscular Volume 102.6 fl (80-100); Mean Platelet Volume 10.1 fl (7.4-10.4); Platelet Count Result 238 k/mm3 (150-375); Red Blood Count 3.13 M/mm3 (4.6-6.20); Red Cell Distribution Width 15.1 % (11.5-14.5); White Blood Count 8.3 K/mm3 (4.5-10.0)
[2023-11-15 06:02] LABS: Alanine Aminotransferase 13 U/L (6-50); Albumin Level 2.9 g/dL (3.5-5.1); Alkaline Phosphatase 158 U/L (38-126); Anion Gap 5 mmol/L (4-12); Aspartate Amino Transferase 27 U/L (17-59); Bilirubin,Total 0.6 mg/dL (0.2-1.3); Blood Urea Nitrogen 24 mg/dL (9-20); Calcium 9.6 mg/dL (8.4-10.2); Carbon Dioxide 28 mmol/L (22-30); Chloride 108 mmol/L (98-107); Estimated CRCL calculation 60 ml/min; Estimated Glomerular Filt Rate > 60; Glucose 90 mg/dL (65-110); Potassium 4.3 mmol/L (3.4-5.0); Sodium 141 mmol/L (137-145)
[2023-11-15] MEDS: AZITHROMYCIN 250 MG TABLET 500 MG PO (08:34)
[2023-11-15] MEDS: PANTOPRAZOLE 40 MG TABLET PO (08:34)
[2023-11-15] MEDS: MEGESTROL ACETATE (*CHEMO) 40 MG TABLET PO ×4 (08:34→20:58)
[2023-11-15] MEDS: NICOTINE (*PBKC) 14 MG PATCH 1 PATCH TRANSDERM (08:34)
[2023-11-15] MEDS: TAMSULOSIN HCL 0.4 MG CAPSULE PO (08:34)
[2023-11-15] MEDS: ACIDOPHILUS/BULGARICUS CHEWABLE TABLET 1 TABLET PO ×4 (08:35→20:58)
[2023-11-15] MEDS: AMOXICILLIN/CLAVULANATE K 875-125 MG TAB 1 TABLET PO ×2 (08:35→20:58)
[2023-11-15] MEDS: ENOXAPARIN 40 MG/0.4 ML SYRINGE SUB-Q (08:35)
[2023-11-15] MEDS: guaiFENesin 12 HR 600 MG TABCR PO ×2 (08:35→20:58)
[2023-11-15] MEDS: carvediloL 6.25 MG TABLET PO ×2 (08:37→20:58)
[2023-11-15] MEDS: DICLOFENAC SODIUM 1% 100 GM GEL (*BKC) 1 APPLIC TOPICAL ×2 (09:43→17:08)
--- NOTE | 2023-11-15 13:53 | HOMEO2EVAL ---
Evaluation was performed at [facility] Home Oxygen Evaluation RC: Home Oxygen (O2) Evaluation Start: 11/15/23 07:34 Freq: ONCE Status: Active Protocol: RPE Activity Type Activity Date Activity User E-sign Co-sign Detail Recorded Client Recorded Date Recorded By Document 11/15/23 13:20 KAG [id number] 11/15/23 13:45 KAG Document 11/15/23 13:21 KAG [id number] 11/15/23 13:45 KAG Document 11/15/23 13:22 KAG [id number] 11/15/23 13:47 KAG Document 11/15/23 13:26 KAG [id number] 11/15/23 13:48 KAG Document 11/15/23 13:26 KAG [id number] 11/15/23 13:49 KAG Document 11/15/23 13:27 KAG [id number] 11/15/23 13:49 KAG Document 11/15/23 13:28 KAG [id number] 11/15/23 13:50 KAG Document 11/15/23 13:21 KAG [id number] 11/15/23 13:46 KAG Document 11/15/23 13:50 KAG [id number] 11/15/23 13:51 KAG 11/15/23 11/15/23 11/15/23 13:20 13:21 13:22 Home O2 Evaluation [Oxygen] -Test Phase Resting Resting Resting -Oxygen Delivery Room Air Nasal Cannula Nasal Cannula -Fraction of Inspired Oxygen (%) 1 3 [Pulse Oximetry] -Pulse Oximetry (90-100 %) 84 L 84 L 91 [Pulse Rate] -Pulse Rate (60-100 beats/min) 95 95 93 [Evaluation] -Activity Tolerance [Exercise] -Ambulation Distance (feet) -Ambulation Distance (meters) [Comments] -Home Oxygen Evaluation Comments [Charges] -Evaluation Charges O2 Evaluation by 11/15/23 11/15/23 11/15/23 13:26 13:26 13:27 Home O2 Evaluation [Oxygen] -Test Phase Exercise Exercise Exercise -Oxygen Delivery Room Air Nasal Cannula Nasal Cannula -Fraction of Inspired Oxygen (%) 1 2 [Pulse Oximetry] -Pulse Oximetry (90-100 %) 82 L 84 L 84 L [Pulse Rate] -Pulse Rate (60-100 beats/min) 102 H 100 101 H [Evaluation] -Activity Tolerance Fair Fair Fair [Exercise] -Ambulation Distance (feet) 30 30 30 -Ambulation Distance (meters) 9.14 9.14 9.14 [Comments] -Home Oxygen Evaluation Comments Patient Patient Patient ambulated from ambulated from ambulated from bed to bathroom bed to bathroom bed to bathroom . . Patient . stating he was getting short of breath. [Charges] -Evaluation Charges 11/15/23 11/15/23 11/15/23 13:28 13:21 13:50 Home O2 Evaluation [Oxygen] -Test Phase Exercise Resting Exercise -Oxygen Delivery Nasal Cannula Nasal Cannula Nasal Cannula -Fraction of Inspired Oxygen (%) 3 2 4 [Pulse Oximetry] -Pulse Oximetry (90-100 %) 85 L 86 L 89 L [Pulse Rate] -Pulse Rate (60-100 beats/min) 99 94 100 [Evaluation] -Activity Tolerance Fair Fair [Exercise] -Ambulation Distance (feet) 10 10 -Ambulation Distance (meters) 3.04 3.04 [Comments] -Home Oxygen Evaluation Comments Patient qualified for 3L with rest and 4L with activity. [Charges] -Evaluation Charges
--- NOTE | 2023-11-15 13:54 | PCRCNOTE ---
Respiratory completed the home oxygen evaluation with patient. Patient qualifies for home oxygen with 3L at rest and 4L with activity. RN informed. Family at bedside informed of info and would like to be set up with [facility].
[2023-11-15] MEDS: HYDROcodone/acetaminophen (*CRX) 7.5-325 MG TABLET 1 TAB PO (18:07)
[2023-11-15 19:19] LABS: Pneumococcal Antigen Urine NOT DETECTED
[2023-11-15] MEDS: GABAPENTIN 300 MG CAPSULE PO (20:58)
[2023-11-15] MEDS: SERTRALINE HCL 25 MG TABLET PO (20:58)
[2023-11-15] MEDS: ALPRAZolam (*CRX) 0.25 MG TABLET PO (20:58)
[2023-11-15] MEDS: IPRATROPIUM 0.5 MG/ALBUTEROL SULFATE 2.5 MG AMPUL.NEB 3 ML INHALATION (23:24)
[2023-11-16] VITALS (23 sets, daily range): BP systolic 120–126; BP diastolic 62–80; PULSE 69–103; RESP 18–24; TEMP 35.7–37.1; O2SAT 93–100
[2023-11-16] MEDS: IPRATROPIUM BR 0.02% INH SOLN 0.5 MG/2.5 ML VIAL INHALATION ×4 (02:20→20:10)
[2023-11-16 06:26] LABS: Hematocrit 31.5 % (42.0-52.0); Hemoglobin 9.8 g/dL (14.0-18.0); Mean Corpuscular HGB Conc 31.1 g/dl (32-36); Mean Corpuscular Hemoglobin 31.7 pg (26-34); Mean Corpuscular Volume 101.9 fl (80-100); Mean Platelet Volume 10.3 fl (7.4-10.4); Platelet Count Result 214 k/mm3 (150-375); Red Blood Count 3.09 M/mm3 (4.6-6.20); White Blood Count 6.1 K/mm3 (4.5-10.0)
[2023-11-16 06:44] LABS: Alanine Aminotransferase 14 U/L (6-50); Albumin Level 2.9 g/dL (3.5-5.1); Alkaline Phosphatase 178 U/L (38-126); Anion Gap 3 mmol/L (4-12); Aspartate Amino Transferase 27 U/L (17-59); Bilirubin,Total 0.5 mg/dL (0.2-1.3); Blood Urea Nitrogen 22 mg/dL (9-20); Calcium 9.6 mg/dL (8.4-10.2); Carbon Dioxide 29 mmol/L (22-30); Chloride 107 mmol/L (98-107); Estimated CRCL calculation 63 ml/min; Estimated Glomerular Filt Rate > 60; Glucose 96 mg/dL (65-110); Potassium 3.5 mmol/L (3.4-5.0); Sodium 139 mmol/L (137-145)
[2023-11-16] MEDS: ENOXAPARIN 40 MG/0.4 ML SYRINGE SUB-Q (08:19)
[2023-11-16] MEDS: NICOTINE (*PBKC) 14 MG PATCH 1 PATCH TRANSDERM (08:19)
[2023-11-16] MEDS: MEGESTROL ACETATE (*CHEMO) 40 MG TABLET PO ×4 (08:20→21:07)
[2023-11-16] MEDS: polyethylene glycoL 3350 17 GM POWD.PACK PO (08:20)
[2023-11-16] MEDS: guaiFENesin 12 HR 600 MG TABCR PO ×2 (08:20→21:07)
[2023-11-16] MEDS: AMOXICILLIN/CLAVULANATE K 875-125 MG TAB 1 TABLET PO ×2 (08:20→21:07)
[2023-11-16] MEDS: ACIDOPHILUS/BULGARICUS CHEWABLE TABLET 1 TABLET PO ×4 (08:20→21:07)
[2023-11-16] MEDS: TAMSULOSIN HCL 0.4 MG CAPSULE PO (08:20)
[2023-11-16] MEDS: PANTOPRAZOLE 40 MG TABLET PO (08:20)
[2023-11-16] MEDS: AZITHROMYCIN 250 MG TABLET 500 MG PO (08:20)
[2023-11-16] MEDS: DICLOFENAC SODIUM 1% 100 GM GEL (*BKC) 1 APPLIC TOPICAL ×2 (08:24→17:41)
[2023-11-16] MEDS: carvediloL 6.25 MG TABLET PO ×2 (08:27→21:07)
--- NOTE | 2023-11-16 11:01 | PCRCNOTE ---
Change of plans for discharge, family/patient have decided to go with a SNF facility at this time. Patient is requiring 5L nasal cannula at this time.
--- NOTE | 2023-11-16 11:38 | P.PNIM_ITS ---
Progress Note: A&P Assessment and Plan (1) Acute respiratory failure with hypoxia: Code(s): J96.01 - Acute respiratory failure with hypoxia Status: Acute (2) Pneumonia: Code(s): J18.9 - Pneumonia, unspecified organism Status: Acute (3) History of Clostridioides difficile infection: Code(s): Z86.19 - Personal history of other infectious and parasitic diseases Status: Acute (4) Metastatic primary lung cancer: Code(s): C34.90 - Malignant neoplasm of unspecified part of unspecified bronchus or lung Status: Acute (5) Oropharyngeal dysphagia: Code(s): R13.12 - Dysphagia, oropharyngeal phase Status: Acute (6) Severe protein-calorie malnutrition: Code(s): E43 - Unspecified severe protein-calorie malnutrition Status: Acute Plan Acute respiratory failure with hypoxia secondary to aspiration pneumonia versus metastatic small cell carcinoma * Currently receiving chemotherapy for small cell lung carcinoma * Bronchodilators. * CTA reviewed worsening metastatic disease vs PNA * incentive spirometry while awake. * sputum culture ordered * influenza/COVID/RSV negative * respiratory panel pending * antibiotic therapy ampicillin/azithromycin due to patient's immunocompromise * supplemental oxygen therapy to maintain oxygen 92% wean as tolerated currently 5 L nasal cannula * Will likely need home O2 walk study prior to discharge * Smoking cessation counseling done * CMP/CBC daily * History of C diff/monitor for diarrhea * Probiotic prophylaxis 11/13: * Deescalating antibiotics to p.o. Augmentin * Will attempt to wean oxygen * Home O2 eval 11/15: * Patient needs Supplemental oxygen 3L at rest/4L activity/5L when sleeping * requesting rehab for discharge * CC consulted Severe protein-calorie malnutrition * Secondary to metastatic lung carcinoma * Consult dietitian * Patient reports no appetite and difficulty swallowing * Supplements added * Check consulted for possible EGD and dilation * Megestrol added Dysphagia * EGD 11/15/2022: Balloon dilation of esophagus * Aspiration precautions * Modified barium swallow * GI consulted may need follow-up EGD and dilation 11/12: * MBS showedPharyngeal dysphagia with laryngeal penetration and expected subsequent aspiration * changed diet to minced level 5 * GI states no intervention at this time Smoking * smoking cessation education * nicotine patch daily * remove at night * recommend prescription for nicotine patches at discharge Code status: Full code per patient DVT prophylaxis: Lovenox Stress ulcer prophylaxis: Protonix 40 daily PT/OT notes: Ambulatory Disposition: Plan was for discharge to home on oxygen however at this time is concerned she will not be able to care for patient and has requested possible rehab services CC consulted for assistance in discharge planning. Time Spent With Patient Time with patient: 15 - 25 minutes Subjective Date/time seen: 11/16/23 11:38 Interval history: Admission: Medical Record Chief Complaint: Shortness of breath. Narrative: This is a 73-year-old male smoker currently receiving chemotherapy for metastatic small cell lung cancer who presented to the emergency department via private vehicle for evaluation of shortness of breath. The patient provides the following history. He has not been feeling well for over a week with cough productive of white phlegm, poor appetite, and increasing d
--- NOTE | 2023-11-16 11:38 | PM.IMPN ---
Progress Note: A&P Assessment and Plan (1) Acute respiratory failure with hypoxia: Code(s): J96.01 - Acute respiratory failure with hypoxia Status: Acute (2) Pneumonia: Code(s): J18.9 - Pneumonia, unspecified organism Status: Acute (3) History of Clostridioides difficile infection: Code(s): Z86.19 - Personal history of other infectious and parasitic diseases Status: Acute (4) Metastatic primary lung cancer: Code(s): C34.90 - Malignant neoplasm of unspecified part of unspecified bronchus or lung Status: Acute (5) Oropharyngeal dysphagia: Code(s): R13.12 - Dysphagia, oropharyngeal phase Status: Acute (6) Severe protein-calorie malnutrition: Code(s): E43 - Unspecified severe protein-calorie malnutrition Status: Acute Plan Acute respiratory failure with hypoxia secondary to aspiration pneumonia versus metastatic small cell carcinoma Currently receiving chemotherapy for small cell lung carcinoma Bronchodilators. CTA reviewed worsening metastatic disease vs PNA incentive spirometry while awake. sputum culture ordered influenza/COVID/RSV negative respiratory panel pending antibiotic therapy ampicillin/azithromycin due to patient's immunocompromise supplemental oxygen therapy to maintain oxygen 92% wean as tolerated currently 5 L nasal cannula Will likely need home O2 walk study prior to discharge Smoking cessation counseling done CMP/CBC daily History of C diff/monitor for diarrhea Probiotic prophylaxis 11/13: Deescalating antibiotics to p.o. Augmentin Will attempt to wean oxygen Home O2 eval 11/15: Patient needs Supplemental oxygen 3L at rest/4L activity/5L when sleeping requesting rehab for discharge CC consulted Severe protein-calorie malnutrition Secondary to metastatic lung carcinoma Consult dietitian Patient reports no appetite and difficulty swallowing Supplements added Check consulted for possible EGD and dilation Megestrol added Dysphagia EGD 11/15/2022: Balloon dilation of esophagus Aspiration precautions Modified barium swallow GI consulted may need follow-up EGD and dilation 11/12: MBS showedPharyngeal dysphagia with laryngeal penetration and expected subsequent aspiration changed diet to minced level 5 GI states no intervention at this time Smoking smoking cessation education nicotine patch daily remove at night recommend prescription for nicotine patches at discharge Code status: Full code per patient DVT prophylaxis: Lovenox Stress ulcer prophylaxis: Protonix 40 daily PT/OT notes: Ambulatory Disposition: Plan was for discharge to home on oxygen however at this time is concerned she will not be able to care for patient and has requested possible rehab services CC consulted for assistance in discharge planning. Time Spent With Patient Time with patient: 15 - 25 minutes Subjective Date/time seen: 11/16/23 11:38 Interval history: Admission: Medical Record Chief Complaint: Shortness of breath. Narrative: This is a 73-year-old male smoker currently receiving chemotherapy for metastatic small cell lung cancer who presented to the emergency department via private vehicle for evaluation of shortness of breath. The patient provides the following history. He has not been feeling well for over a week with cough productive of white phlegm, poor appetite, and increasing dyspnea on lesser and lesser exertion. He has a history of dysphagia status post esophageal dilatation several years ago and over the last several months he has had increasing issues with dysphagia though he has not had any episodes of overt aspiration recently that he can recall. He has not had a fever to his knowledge and he denies sinus congestion, sore throat, chest pain, pleuritic pain, vomiting, and diarrhea. He also denies sick contacts. Of note he had C diff towards the beginning of the y
[2023-11-16] MEDS: SERTRALINE HCL 25 MG TABLET PO (21:07)
[2023-11-16] MEDS: GABAPENTIN 300 MG CAPSULE PO (21:07)
[2023-11-17] VITALS (17 sets, daily range): BP systolic 113–121; BP diastolic 61–69; PULSE 78–137; RESP 16–19; TEMP 36.1–36.6; O2SAT 94–100
[2023-11-17 06:27] LABS: Alanine Aminotransferase 16 U/L (6-50); Albumin Level 2.9 g/dL (3.5-5.1); Alkaline Phosphatase 162 U/L (38-126); Anion Gap 1 mmol/L (4-12); Aspartate Amino Transferase 39 U/L (17-59); Bilirubin,Total 0.7 mg/dL (0.2-1.3); Blood Urea Nitrogen 20 mg/dL (9-20); Calcium 9.2 mg/dL (8.4-10.2); Carbon Dioxide 28 mmol/L (22-30); Chloride 106 mmol/L (98-107); Estimated CRCL calculation 66 ml/min; Estimated Glomerular Filt Rate > 60; Glucose 84 mg/dL (65-110); Potassium 4.4 mmol/L (3.4-5.0); Sodium 135 mmol/L (137-145)
[2023-11-17] MEDS: IPRATROPIUM BR 0.02% INH SOLN 0.5 MG/2.5 ML VIAL INHALATION ×3 (07:33→19:38)
--- NOTE | 2023-11-17 08:08 | P.PNIM_ITS ---
Progress Note: A&P Assessment and Plan (1) Acute respiratory failure with hypoxia: Code(s): J96.01 - Acute respiratory failure with hypoxia Status: Acute (2) Pneumonia: Code(s): J18.9 - Pneumonia, unspecified organism Status: Acute (3) History of Clostridioides difficile infection: Code(s): Z86.19 - Personal history of other infectious and parasitic diseases Status: Acute (4) Metastatic primary lung cancer: Code(s): C34.90 - Malignant neoplasm of unspecified part of unspecified bronchus or lung Status: Acute (5) Oropharyngeal dysphagia: Code(s): R13.12 - Dysphagia, oropharyngeal phase Status: Acute (6) Severe protein-calorie malnutrition: Code(s): E43 - Unspecified severe protein-calorie malnutrition Status: Acute Plan Acute respiratory failure with hypoxia secondary to aspiration pneumonia versus metastatic small cell carcinoma * Currently receiving chemotherapy for small cell lung carcinoma * Bronchodilators. * CTA reviewed worsening metastatic disease vs PNA * incentive spirometry while awake. * sputum culture ordered * influenza/COVID/RSV negative * respiratory panel pending * antibiotic therapy ampicillin/azithromycin due to patient's immunocompromise * supplemental oxygen therapy to maintain oxygen 92% wean as tolerated currently 5 L nasal cannula * Will likely need home O2 walk study prior to discharge * Smoking cessation counseling done * CMP/CBC daily * History of C diff/monitor for diarrhea * Probiotic prophylaxis 11/13: * Deescalating antibiotics to p.o. Augmentin * Will attempt to wean oxygen * Home O2 eval 11/15: * Patient needs Supplemental oxygen 3L at rest/4L activity/5L when sleeping * requesting rehab for discharge * CC consulted 11/16: * Remains on 3 L nasal cannula at rest/4 L with activity/5 L was sleeping * Case management working on rehab needs * Crackles noted lung bases bilaterally Severe protein-calorie malnutrition 11/15 * Secondary to metastatic lung carcinoma * Consult dietitian * Patient reports no appetite and difficulty swallowing * Supplements added * Check consulted for possible EGD and dilation * Megestrol added 11/16: * No change to current treatment plan Dysphagia * EGD 11/15/2022: Balloon dilation of esophagus * Aspiration precautions * Modified barium swallow * GI consulted may need follow-up EGD and dilation 11/12: * MBS showedPharyngeal dysphagia with laryngeal penetration and expected subsequent aspiration * changed diet to minced level 5 * GI states no intervention at this time 11/16: * No change to current treatment plan Tachycardia 11/16: * Heart rate 120s to 135 today * Will go ahead and get an EKG * Patient had a CTA of the chest 6 days ago which was negative for PE and showed pneumonia * Patient feels anxious with frequent panic attacks due to his work of breathing Anxiety 11/16: * Patient was started on Xanax however this was given with the [place] which made him very sleepy * Will try clonazepam instead Smoking 11/15: * smoking cessation education * nicotine patch daily * remove at night * recommend prescription for nicotine patches at discharge 11/16: * No change to current treatment plan Code status: Full code per patient DVT prophylaxis: Lovenox Stress ulcer prophylaxis: Protonix 40 daily PT/OT notes: Ambulatory Disposition: Plan was for discharge to home on oxy
--- NOTE | 2023-11-17 08:08 | PM.IMPN ---
Progress Note: A&P Assessment and Plan (1) Acute respiratory failure with hypoxia: Code(s): J96.01 - Acute respiratory failure with hypoxia Status: Acute (2) Pneumonia: Code(s): J18.9 - Pneumonia, unspecified organism Status: Acute (3) History of Clostridioides difficile infection: Code(s): Z86.19 - Personal history of other infectious and parasitic diseases Status: Acute (4) Metastatic primary lung cancer: Code(s): C34.90 - Malignant neoplasm of unspecified part of unspecified bronchus or lung Status: Acute (5) Oropharyngeal dysphagia: Code(s): R13.12 - Dysphagia, oropharyngeal phase Status: Acute (6) Severe protein-calorie malnutrition: Code(s): E43 - Unspecified severe protein-calorie malnutrition Status: Acute Plan Acute respiratory failure with hypoxia secondary to aspiration pneumonia versus metastatic small cell carcinoma Currently receiving chemotherapy for small cell lung carcinoma Bronchodilators. CTA reviewed worsening metastatic disease vs PNA incentive spirometry while awake. sputum culture ordered influenza/COVID/RSV negative respiratory panel pending antibiotic therapy ampicillin/azithromycin due to patient's immunocompromise supplemental oxygen therapy to maintain oxygen 92% wean as tolerated currently 5 L nasal cannula Will likely need home O2 walk study prior to discharge Smoking cessation counseling done CMP/CBC daily History of C diff/monitor for diarrhea Probiotic prophylaxis 11/13: Deescalating antibiotics to p.o. Augmentin Will attempt to wean oxygen Home O2 eval 11/15: Patient needs Supplemental oxygen 3L at rest/4L activity/5L when sleeping requesting rehab for discharge CC consulted 11/16: Remains on 3 L nasal cannula at rest/4 L with activity/5 L was sleeping Case management working on rehab needs Crackles noted lung bases bilaterally Severe protein-calorie malnutrition 11/15 Secondary to metastatic lung carcinoma Consult dietitian Patient reports no appetite and difficulty swallowing Supplements added Check consulted for possible EGD and dilation Megestrol added 11/16: No change to current treatment plan Dysphagia EGD 11/15/2022: Balloon dilation of esophagus Aspiration precautions Modified barium swallow GI consulted may need follow-up EGD and dilation 11/12: MBS showedPharyngeal dysphagia with laryngeal penetration and expected subsequent aspiration changed diet to minced level 5 GI states no intervention at this time 11/16: No change to current treatment plan Tachycardia 11/16: Heart rate 120s to 135 today Will go ahead and get an EKG Patient had a CTA of the chest 6 days ago which was negative for PE and showed pneumonia Patient feels anxious with frequent panic attacks due to his work of breathing Anxiety 11/16: Patient was started on Xanax however this was given with the [place] which made him very sleepy Will try clonazepam instead Smoking 11/15: smoking cessation education nicotine patch daily remove at night recommend prescription for nicotine patches at discharge 11/16: No change to current treatment plan Code status: Full code per patient DVT prophylaxis: Lovenox Stress ulcer prophylaxis: Protonix 40 daily PT/OT notes: Ambulatory Disposition: Plan was for discharge to home on oxygen however at this time is concerned she will not be able to care for patient and has requested possible rehab services CC consulted for assistance in discharge planning. Time Spent With Patient Time with patient: Greater than 35 minutes Subjective Date/time seen: 11/17/23 08:08 Interval history: Admission: Medical Record Chief Complaint: Shortness of breath. Narrative: This is a 73-year-old male smoker currently receiving chemotherapy for metastatic small cell lung cancer who presented to the emergency departm
[2023-11-17] MEDS: DICLOFENAC SODIUM 1% 100 GM GEL (*BKC) 1 APPLIC TOPICAL (08:29)
[2023-11-17] MEDS: NICOTINE (*PBKC) 14 MG PATCH 1 PATCH TRANSDERM (08:30)
[2023-11-17] MEDS: carvediloL 6.25 MG TABLET PO ×2 (08:33→20:26)
[2023-11-17] MEDS: ACIDOPHILUS/BULGARICUS CHEWABLE TABLET 1 TABLET PO ×4 (08:34→20:26)
[2023-11-17] MEDS: AMOXICILLIN/CLAVULANATE K 875-125 MG TAB 1 TABLET PO ×2 (08:35→20:27)
[2023-11-17] MEDS: TAMSULOSIN HCL 0.4 MG CAPSULE PO (08:35)
[2023-11-17] MEDS: PANTOPRAZOLE 40 MG TABLET PO (08:35)
[2023-11-17] MEDS: MEGESTROL ACETATE (*CHEMO) 40 MG TABLET PO ×4 (08:35→20:26)
[2023-11-17] MEDS: ENOXAPARIN 40 MG/0.4 ML SYRINGE SUB-Q (08:42)
[2023-11-17 10:54] LABS: Hematocrit 30.7 % (42.0-52.0); Hemoglobin 9.7 g/dL (14.0-18.0); Mean Corpuscular HGB Conc 31.6 g/dl (32-36); Mean Corpuscular Hemoglobin 32.1 pg (26-34); Mean Corpuscular Volume 101.7 fl (80-100); Mean Platelet Volume 9.7 fl (7.4-10.4); Platelet Count Result 195 k/mm3 (150-375); Red Blood Count 3.02 M/mm3 (4.6-6.20); Red Cell Distribution Width 15.2 % (11.5-14.5); White Blood Count 7.2 K/mm3 (4.5-10.0)
--- NOTE | 2023-11-17 12:08 | ECG_ITS ---
SEE SCANNED COPY FOR CONFIRMED REPORT MTDD
--- NOTE | 2023-11-17 13:05 | PCOTNOTE ---
Patient refused to participate in OT treatment this P.M. Patient stated he agreed to try PT, and did and it was horrible. Patient stated he walked and it caused an anxiety attack because he is so short of breath. Patient states he can not perform activity with his breathing the way it is. RN notified and aware.
[2023-11-17] MEDS: clonazePAM (*CRX) 0.25 MG TABLET PO (16:14)
[2023-11-17] MEDS: GABAPENTIN 300 MG CAPSULE PO (20:26)
[2023-11-17] MEDS: SERTRALINE HCL 25 MG TABLET PO (20:27)
[2023-11-17] MEDS: guaiFENesin 12 HR 600 MG TABCR PO (20:27)
[2023-11-18] VITALS (10 sets, daily range): BP systolic 116–120; BP diastolic 58–76; PULSE 83–102; RESP 18–20; TEMP 36.1; O2SAT 96–100
[2023-11-18] MEDS: IPRATROPIUM BR 0.02% INH SOLN 0.5 MG/2.5 ML VIAL INHALATION ×2 (02:16→07:49)
[2023-11-18 06:19] LABS: Hematocrit 35.6 % (42.0-52.0); Hemoglobin 10.9 g/dL (14.0-18.0); Mean Corpuscular HGB Conc 30.6 g/dl (32-36); Mean Corpuscular Hemoglobin 31.5 pg (26-34); Mean Corpuscular Volume 102.9 fl (80-100); Mean Platelet Volume 10.2 fl (7.4-10.4); Platelet Count Result 227 k/mm3 (150-375); Red Blood Count 3.46 M/mm3 (4.6-6.20); White Blood Count 8.1 K/mm3 (4.5-10.0)
[2023-11-18 06:31] LABS: Alanine Aminotransferase 18 U/L (6-50); Albumin Level 3.3 g/dL (3.5-5.1); Alkaline Phosphatase 213 U/L (38-126); Anion Gap 3 mmol/L (4-12); Aspartate Amino Transferase 32 U/L (17-59); Bilirubin,Total 0.6 mg/dL (0.2-1.3); Blood Urea Nitrogen 20 mg/dL (9-20); Calcium 9.9 mg/dL (8.4-10.2); Carbon Dioxide 30 mmol/L (22-30); Chloride 106 mmol/L (98-107); Estimated CRCL calculation 58 ml/min; Estimated Glomerular Filt Rate > 60; Glucose 93 mg/dL (65-110); Potassium 3.9 mmol/L (3.4-5.0); Sodium 139 mmol/L (137-145)
[2023-11-18] MEDS: guaiFENesin 12 HR 600 MG TABCR PO (09:23)
[2023-11-18] MEDS: TAMSULOSIN HCL 0.4 MG CAPSULE PO (09:23)
[2023-11-18] MEDS: carvediloL 6.25 MG TABLET PO (09:23)
[2023-11-18] MEDS: PANTOPRAZOLE 40 MG TABLET PO (09:23)
[2023-11-18] MEDS: MEGESTROL ACETATE (*CHEMO) 40 MG TABLET PO (09:23)
[2023-11-18] MEDS: ACIDOPHILUS/BULGARICUS CHEWABLE TABLET 1 TABLET PO (09:24)
[2023-11-18] MEDS: AMOXICILLIN/CLAVULANATE K 875-125 MG TAB 1 TABLET PO (09:24)
[2023-11-18] MEDS: DICLOFENAC SODIUM 1% 100 GM GEL (*BKC) 1 APPLIC TOPICAL (09:27)
[2023-11-18] MEDS: NICOTINE (*PBKC) 14 MG PATCH 1 PATCH TRANSDERM (09:30)
[2023-11-18] MEDS: ENOXAPARIN 40 MG/0.4 ML SYRINGE SUB-Q (09:30)
--- NOTE | 2023-11-18 13:07 | P.DS_ITS ---
DS: Admitting Diagnosis Discharge Date 11/18/2023 Admitting Diagnosis Acute respiratory failure with hypoxia secondary to pneumonia in worsening metastatic lung cancer DS: Discharge Diagnosis Discharge Diagnosis (1) Acute respiratory failure with hypoxia: Code(s): J96.01 - Acute respiratory failure with hypoxia Status: Acute (2) Pneumonia: Code(s): J18.9 - Pneumonia, unspecified organism Status: Acute (3) History of Clostridioides difficile infection: Code(s): Z86.19 - Personal history of other infectious and parasitic diseases Status: Acute (4) Metastatic primary lung cancer: Code(s): C34.90 - Malignant neoplasm of unspecified part of unspecified bronchus or lung Status: Acute (5) Oropharyngeal dysphagia: Code(s): R13.12 - Dysphagia, oropharyngeal phase Status: Acute (6) Severe protein-calorie malnutrition: Code(s): E43 - Unspecified severe protein-calorie malnutrition Status: Acute Plan Acute respiratory failure with hypoxia secondary to aspiration pneumonia versus metastatic small cell carcinoma * Currently receiving chemotherapy for small cell lung carcinoma * Bronchodilators. * CTA reviewed worsening metastatic disease vs PNA * incentive spirometry while awake. * sputum culture ordered * influenza/COVID/RSV negative * respiratory panel pending * antibiotic therapy ampicillin/azithromycin due to patient's immunocompromise * supplemental oxygen therapy to maintain oxygen 92% wean as tolerated currently 5 L nasal cannula * Will likely need home O2 walk study prior to discharge * Smoking cessation counseling done * CMP/CBC daily * History of C diff/monitor for diarrhea * Probiotic prophylaxis 11/13: * Deescalating antibiotics to p.o. Augmentin * Will attempt to wean oxygen * Home O2 eval 11/15: * Patient needs Supplemental oxygen 3L at rest/4L activity/5L when sleeping * requesting rehab for discharge * CC consulted 11/16: * Remains on 3 L nasal cannula at rest/4 L with activity/5 L was sleeping * Case management working on rehab needs * Crackles noted lung bases bilaterally Severe protein-calorie malnutrition 11/15 * Secondary to metastatic lung carcinoma * Consult dietitian * Patient reports no appetite and difficulty swallowing * Supplements added * Check consulted for possible EGD and dilation * Megestrol added 11/16: * No change to current treatment plan Dysphagia * EGD 11/15/2022: Balloon dilation of esophagus * Aspiration precautions * Modified barium swallow * GI consulted may need follow-up EGD and dilation 11/12: * MBS showedPharyngeal dysphagia with laryngeal penetration and expected [place] bsequent aspiration * changed diet to minced level 5 * GI states no intervention at this time 11/16: * No change to current treatment plan Tachycardia 11/16: * Heart rate 120s to 135 today * Will go ahead and get an EKG * Patient had a CTA of the chest 6 days ago which was negative for PE and showed pneumonia * Patient feels anxious with frequent panic attacks due to his work of breathing Anxiety 11/16: * Patient was started on Xanax however this was given with the [place] which made him very sleepy * Will try clonazepam instead Smoking 11/15: * smoking cessation education * nicotine patch daily * remove at night * recommend prescription for nicotine patches at discharge 11/16: * No change to current treatment plan Di
--- NOTE | 2023-11-18 13:07 | PM.DS ---
DS: Admitting Diagnosis Discharge Date 11/18/2023 Admitting Diagnosis Acute respiratory failure with hypoxia secondary to pneumonia in worsening metastatic lung cancer DS: Discharge Diagnosis Discharge Diagnosis (1) Acute respiratory failure with hypoxia: Code(s): J96.01 - Acute respiratory failure with hypoxia Status: Acute (2) Pneumonia: Code(s): J18.9 - Pneumonia, unspecified organism Status: Acute (3) History of Clostridioides difficile infection: Code(s): Z86.19 - Personal history of other infectious and parasitic diseases Status: Acute (4) Metastatic primary lung cancer: Code(s): C34.90 - Malignant neoplasm of unspecified part of unspecified bronchus or lung Status: Acute (5) Oropharyngeal dysphagia: Code(s): R13.12 - Dysphagia, oropharyngeal phase Status: Acute (6) Severe protein-calorie malnutrition: Code(s): E43 - Unspecified severe protein-calorie malnutrition Status: Acute Plan Acute respiratory failure with hypoxia secondary to aspiration pneumonia versus metastatic small cell carcinoma Currently receiving chemotherapy for small cell lung carcinoma Bronchodilators. CTA reviewed worsening metastatic disease vs PNA incentive spirometry while awake. sputum culture ordered influenza/COVID/RSV negative respiratory panel pending antibiotic therapy ampicillin/azithromycin due to patient's immunocompromise supplemental oxygen therapy to maintain oxygen 92% wean as tolerated currently 5 L nasal cannula Will likely need home O2 walk study prior to discharge Smoking cessation counseling done CMP/CBC daily History of C diff/monitor for diarrhea Probiotic prophylaxis 11/13: Deescalating antibiotics to p.o. Augmentin Will attempt to wean oxygen Home O2 eval 11/15: Patient needs Supplemental oxygen 3L at rest/4L activity/5L when sleeping requesting rehab for discharge CC consulted 11/16: Remains on 3 L nasal cannula at rest/4 L with activity/5 L was sleeping Case management working on rehab needs Crackles noted lung bases bilaterally Severe protein-calorie malnutrition 11/15 Secondary to metastatic lung carcinoma Consult dietitian Patient reports no appetite and difficulty swallowing Supplements added Check consulted for possible EGD and dilation Megestrol added 11/16: No change to current treatment plan Dysphagia EGD 11/15/2022: Balloon dilation of esophagus Aspiration precautions Modified barium swallow GI consulted may need follow-up EGD and dilation 11/12: MBS showedPharyngeal dysphagia with laryngeal penetration and expected subsequent aspiration changed diet to minced level 5 GI states no intervention at this time 11/16: No change to current treatment plan Tachycardia 11/16: Heart rate 120s to 135 today Will go ahead and get an EKG Patient had a CTA of the chest 6 days ago which was negative for PE and showed pneumonia Patient feels anxious with frequent panic attacks due to his work of breathing Anxiety 11/16: Patient was started on Xanax however this was given with the [place] which made him very sleepy Will try clonazepam instead Smoking 11/15: smoking cessation education nicotine patch daily remove at night recommend prescription for nicotine patches at discharge 11/16: No change to current treatment plan Disposition: Discharged to [facility] DS: Summary Hospital Course Reason for hospitalization: Acute respiratory failure with hypoxia secondary to pneumonia in worsening metastatic lung cancer Hospital Course: This was a 73-year-old male smoker currently receiving chemotherapy for metastatic small cell lung cancer who presented to the emergency department via private vehicle for evaluation of shortness of breath. The patient provides the following history. He has not been feeling well for over a week with cough productive of whit
[2023-11-19 18:29] LABS: Mycoplasma IgM Antibody Titer 86 U/mL
[2023-11-20 19:19] LABS: Legionella pneumophila Ag Ur NOT DETECTED
== END 2023-11-18 13:00 | DRG 177 ==
LOC: ANHED 08:04 → ANH3MEDSUR 08:21
PROVIDERS: Physician Assistant; Admitting Provider General Practice; Emergency Provider Emergency Medicine; PCP Internal Medicine; Visit Provider Nurse Practitioner Family
DX: J69.0 Pneumonitis due to inhalation of food and vomit (principal); E43 Unspecified severe protein-calorie malnutrition; J96.01 Acute respiratory failure with hypoxia; C34.90 Malignant neoplasm of unspecified part of unspecified bronchus or lung; C78.00 Secondary malignant neoplasm of unspecified lung; C78.7 Secondary malignant neoplasm of liver and intrahepatic bile duct; J44.0 Chronic obstructive pulmonary disease with (acute) lower respiratory infection; L89.312 Pressure ulcer of right buttock, stage 2; K21.9 Gastro-esophageal reflux disease without esophagitis; R13.12 Dysphagia, oropharyngeal phase; R33.9 Retention of urine, unspecified; Z20.822 Contact with and (suspected) exposure to COVID-19; Z87.11 Personal history of peptic ulcer disease; Z80.0 Family history of malignant neoplasm of digestive organs; Z72.0 Tobacco use
CPT/HCPCS: 36415; 71046; 71275; 80048; 80053; 81001; 83605; 83735; 83880; 84145; 85025; 85027; 85610; 85730; 86140; 86738; 87015; 87040; 87116; 87206; 87449; 87637; 87899; 92526; 92611; 93005; 94618; 94640; 96361; 96374; 97110; 97116; 97161; 97165; 97530; 97535; 99285; A9270; J0295; J0456; J0696; J1650; J2060; J3480; J7040; J7120; Q9967

== ENCOUNTER 2023-11-20 21:53 | Inpatient (IN) | payer MEDICARE, MEDICAID, SELFPAY ==
--- NOTE | ~2023-11-20 | XR_ITS ---
EXAMINATION: XR chest 1V portable DATE: 11/20/2023 22:48 INDICATION: Port placement. TECHNIQUE: A single frontal view of the chest was obtained. COMPARISON: Chest 2 views 11/10/2023, chest CT 11/11/2023, 08/26/22 FINDINGS: Again seen is elevation of right hemidiaphragm. There are airspace opacities in right mid a nd lower lung zones with a lower lung predominance. There are airspace opacities in left mid and lowe r lung zones with a perihilar predominance. There is a small right pleural effusion. No pneumothorax. The heart size is normal. There is a right internal jugular port with tip in right atrium. There is right paratracheal lymphadenopathy. IMPRESSION: 1. Port tip in right atrium. 2. Diffuse lung disease with worsening in right lower lung zone, consistent with a combination of mal ignancy, treatment changes, and chronic lung disease. Worsened airspace opacities in right lower lung zone may be pneumonia or treatment change. 3. Right paratracheal lymphadenopathy, consistent metastatic disease. 4. New small right pleural effusion. Reviewed, dictated and finalized at location E. IMPRESSION: 1. Port tip in right atrium. 2. Diffuse lung disease with worsening in right lower lung zone, consistent wit h a combination of malignancy, treatment changes, and chronic lung disease. Wor sened airspace opacities in right lower lung zone may be pneumonia or treatment change. 3. Right paratracheal lymphadenopathy, consistent metastatic disease. 4. New small right pleural effusion.
--- NOTE | ~2023-11-20 | CT_ITS ---
EXAMINATION: CTA chest PE protocol DATE: 11/21/2023 16:35 INDICATION: Tachycardia, dyspnea and lung cancer TECHNIQUE: Computed tomography (CT) pulmonary angiogram of the chest was performed with 100 mL Omnipa que-350 intravenous contrast. Additional 3D reconstructions utilizing coronal maximum intensity proje ction (MIP) were performed. Automated exposure control and iterative reconstruction technique were em ployed. The dose-length product was 181.23 mGy-cm. COMPARISON: 11/11/2023 FINDINGS: No pulmonary embolism. Sensitivity decreased in some of the smaller subsegmental pulmonary arteries p articularly at the left lung base due to some respiratory motion artifact. Mild emphysema and diffuse mild bronchiectasis. No interval change in contrast enhanced vessels and lucent bronchi extending th rough a 6.5 x 4.1 cm region of consolidation with spiculated margins at the left suprahilar region wi th appearance suggesting radiation fibrosis for treatment of lung cancer. Consolidation in the basila r right lower lobe. Patchy groundglass opacities in the left lower lobe and dependent right upper lob e consistent with pneumonia. The consolidation right lower lobe is new obscures a 2.8 cm right lower lobe mass which is also concerning for primary bronchogenic carcinoma. Small right and trace left ple ural effusions. There are scattered small calcified pulmonary nodules along with calcified bilateral hilar and mediastinal lymph nodes consistent with old granulomatous disease. Again seen is bulky and in places confluent mediastinal and right hilar lymphadenopathy consistent with metastatic disease. R ight internal jugular central venous port catheter with distal tip at the high right atrium. Heart si ze is normal. Small amount of atherosclerotic coronary artery calcific is. No pericardial effusion. T horacic aorta is normal in caliber with no dissection. Multinodular goiter with intrathoracic extensi on on the left. Severe thoracic spondylosis. Scattered hepatic and splenic calcification consistent w ith old granulomatous disease. IMPRESSION: 1. No pulmonary embolism. 2. Worsening consolidation in the right lower lobe along with groundglass opacities in the right uppe r and left lower lobes consistent with pneumonia. 3. Small right and trace left pleural effusions. 4. Unchanged consolidation in the left suprahilar region likely radiation fibrosis related to treatme nt of reported lung cancer. 5. Unchanged bulky mediastinal and right hilar lymphadenopathy consistent with metastatic disease. 6. The consolidation in the right lower lobe obscures a previously seen right lower lobe mass which c oncerning for either additional primary pancreatic carcinoma or metastatic disease. 7. Mild emphysema. Reviewed, dictated and finalized at location A. IMPRESSION: 1. No pulmonary embolism. 2. Worsening consolidation in the right lower lobe along with groundglass opaci ties in the right upper and left lower lobes consistent with pneumonia. 3. Small right and trace left pleural effusions. 4. Unchanged consolidation in the left suprahilar region likely radiation fibro sis related to treatment of reported lung cancer. 5. Unchanged bulky mediastinal and right hilar lymphadenopathy consistent with metastatic disease. 6. The consolidation in the right lower lobe obscures a previously seen right l ower lobe mass which concerning for either additional primary pancreatic carcin roberta or metastatic disease. 7. Mild emphysema.
--- NOTE | ~2023-11-20 | XR_ITS ---
Portable chest x-ray Comparison: 11/22/2023 Clinical History: Pneumonia, lung cancer Findings: Right-sided Mediport is unchanged. Stable left suprahilar irregular consolidation. There i s bibasilar consolidation, more patchy appearance. Cardiomediastinal silhouette is stable. Bones and soft tissues are unremarkable. Impression: Patchy bibasilar consolidation and additional left upper lobe consolidation. Correlate for lung cance r/posttreatment change and/or pneumonia. Right-sided Mediport in place. Reviewed, dictated and finalized at location . Impression: Patchy bibasilar consolidation and additional left upper lobe consolidation. Co rrelate for lung cancer/posttreatment change and/or pneumonia. Right-sided Mediport in place.
--- NOTE | ~2023-11-20 | XR_ITS ---
EXAMINATION: XR chest 1V portable Exam Date/Time: 11/22/2023 16:06 CDT HISTORY: pneumonia, lung cancer, increased sob Comparison: 11/20/2023; CTPA 11/21/2023. RESULT: Lines, tubes, and devices: Implanted right chest port terminating in the right atrium. Lungs and pleura: Similar moderate diffuse reticular and groundglass opacities. Unchanged left supra hilar scar/mass. Unchanged right medial basilar airspace disease and streaky bibasilar opacities. Sli ghtly improved aeration of the right lateral lower lung. Right hemidiaphragm elevation. Emphysematous change. Cardiomediastinal silhouette: Stable thickening of the right paratracheal stripe. Other: No acute osseous or upper abdominal finding. IMPRESSION: Slightly improved aeration in the right lung base otherwise unchanged pulmonary opacities. Left supra hilar consolidation, likely representing radiation fibrosis/mass. Bilateral groundglass and airspace opacities may represent pneumonia. Right paratracheal lymphadenopathy. Reviewed, dictated and finalized at location K. IMPRESSION: Slightly improved aeration in the right lung base otherwise unchanged pulmonary opacities. Left suprahilar consolidation, likely representing radiation fibros is/mass. Bilateral groundglass and airspace opacities may represent pneumonia. Right paratracheal lymphadenopathy.
--- NOTE | 2023-11-20 21:56 | ECG_ITS ---
SEE SCANNED COPY FOR CONFIRMED REPORT MTDD
[2023-11-20 22:00] VITALS: BP 109/69; PULSE 85; RESP 26; TEMP 36.9; O2SAT 99
[2023-11-20 22:09] VITALS: O2SAT 83
[2023-11-20 22:10] VITALS: O2SAT 90
--- NOTE | 2023-11-20 22:10 | PC.NURSE ---
called gave update on her .
--- NOTE | 2023-11-20 22:24 | ECG_ITS ---
SEE SCANNED COPY FOR CONFIRMED REPORT MTDD
[2023-11-20 22:38] LABS: Basophils Percent Auto 0.4 % (0.2-1.2); Eosinophils Absolute Auto 0.1 K/mm3 (0-0.3); Eosinophils Percent Auto 0.7 % (0-4.4); Hematocrit 30.7 % (42.0-52.0); Hemoglobin 9.9 g/dL (14.0-18.0); Immature Granulocyte Absolute 0.14 K/mm3 (0.00-0.031); Immature Granulocyte Percent A 1.4 % (0-0.5); Lymphocytes Absolute Auto 1.33 K/mm3 (0.9-3.2); Lymphocytes Percent Auto 13.1 % (18.3-44.2); Mean Corpuscular HGB Conc 32.2 g/dl (32-36); Mean Corpuscular Hemoglobin 32.5 pg (26-34); Mean Corpuscular Volume 100.7 fl (80-100); Mean Platelet Volume 9.9 fl (7.4-10.4); Monocytes Absolute Auto 0.8 K/mm3 (0.1-0.6); Monocytes Percent Auto 7.9 % (2.6-8.5); Neutrophils Absolute Auto 7.8 K/mm3 (1.3-6.7); Neutrophils Percent Auto 76.5 % (45.5-73.1); Platelet Count Result 196 k/mm3 (150-375); Red Blood Count 3.05 M/mm3 (4.6-6.20); Red Cell Distribution Width 15.4 % (11.5-14.5); White Blood Count 10.2 K/mm3 (4.5-10.0)
[2023-11-20 22:50] LABS: Alanine Aminotransferase 19 U/L (6-50); Albumin Level 2.9 g/dL (3.5-5.1); Alkaline Phosphatase 207 U/L (38-126); Anion Gap 2 mmol/L (4-12); Aspartate Amino Transferase 36 U/L (17-59); Bilirubin,Total 0.7 mg/dL (0.2-1.3); Blood Urea Nitrogen 18 mg/dL (9-20); Calcium 9.7 mg/dL (8.4-10.2); Carbon Dioxide 32 mmol/L (22-30); Chloride 106 mmol/L (98-107); Estimated CRCL calculation 58 ml/min; Estimated Glomerular Filt Rate > 60; Glucose 96 mg/dL (65-110); INR 1.2; Potassium 3.3 mmol/L (3.4-5.0); Prothrombin Time 15.6 Seconds (11.1-14.7); Sodium 140 mmol/L (137-145)
[2023-11-20 22:51] LABS: Partial Thromboplastin Time 27.4 Seconds (22.3-36.8)
[2023-11-20 22:59] LABS: NT Pro B Type Natriuretic Pept 586 pg/mL (19.9-100)
[2023-11-20 23:01] LABS: Troponin I 0.012 ng/mL (0.000-0.034)
--- NOTE | 2023-11-20 23:02 | ED.GENADULT ---
HPI - General Adult General Chief complaint: Shortness of Breath/Dyspnea Stated complaint: sob Time Seen by Provider: 11/20/23 22:02 History of Present Illness HPI narrative: Patient is a 73-year-old male who presents to the emergency department this evening from [facility] due to increase in shortness of breath. Patient was recently discharged from our facility after being evaluated for lung cancer and shortness of breath. Patient was discharged on oxygen 3-4 L which he has been on, however, today staff at the rehab facility were having hard time keeping the patient's oxygenation above 90 and due to increased work of breathing sent him to the emergency department for further evaluation. Patient does admit to worsening shortness of breath, denies any chest pain, denies any nausea or vomiting and is currently denying any additional symptoms. Related Data Home Medications Medication Instructions Recorded Confirmed tamsulosin 0.4 mg capsule 0.4 mg PO DAILY 03/22/20 11/18/23 gabapentin 300 mg capsule 300 mg PO HS 11/08/22 11/18/23 omeprazole 20 mg capsule,delayed 20 mg PO DAILY 11/08/22 11/18/23 release diclofenac sodium 1 % topical gel 1 ea topical BID 08/09/23 11/18/23 metoclopramide HCl 10 mg tablet 10 mg PO Q6H PRN Nausea And 08/09/23 11/18/23 Vomiting Allergies Allergy/AdvReac Type Severity Reaction Status Date / Time oxycodone AdvReac Unknown Itching Verified 11/11/23 02:55 adhesive tape AdvReac Hives Verified 11/11/23 02:55 Review of Systems Review of Systems: All systems are reviewed and are negative unless stated otherwise in the HPI. [facility] Past Medical History Medical History C. difficile diarrhea Chronic obstructive pulmonary disease Duodenal ulcer Dyspnea and respiratory abnormalities Gastroesophageal reflux disease Oropharyngeal dysphagia Small cell lung cancer Originally diagnosed in February 2017. Patient of Dr. Prabhakar. Tobacco abuse Urinary retention Surgical History Surgical History History of arthroscopy of knee Family History Family History Other Colon cancer Social History Social History Social History: Surrogate medical decision maker: Alma Delia Menon, spouse. Code status: Full code. Smoking packs per day: 1.5 Smoking cigarettes per day: 30.0 Years smoked: 50 Smoking pack-years: 75.00 Smoking status: Heavy tobacco smoker Tobacco type: cigarettes Second hand tobacco smoke exposure: No Additional smoking assessment comments: advised patient has reduced cigarette usage to 2 cigarettes/day Alcohol intake: former Substance use type: does not use Do You Feel Safe in your Home?: Yes Lack of Transportation: No Lack of Food: Never True Current Housing: I Have Housing Concerned About Future Housing: No Difficulty Paying Gas/Electric Bills: No Difficulty Paying for Meds: No Currently Unemployed: No Education: High School Diploma/GED Difficulty w/ Childcare or Family Care: No Living arrangements: with family Spiritual care concerns: No Exam Narrative: General: Alert, awake, afebrile, in moderate respiratory distress, cachectic. Cardiovascular: Regular rate and rhythm, no murmurs, rubs or gallops, no peripheral edema. Respiratory: Diminished breath sounds along the right mid and lower lung [place], tachypnea, moderate respiratory distress. Abdomen: Soft, nontender, nondistended, no rebound, no guarding, no peritoneal signs. Musculoskeletal: No joint swelling or deformity, normal muscle tone. Skin: No rashes or petechia, no signs of infection. Psychiatric: Alert and oriented, normal behavior and judgment for situation. Neurological: Alert and oriented to person and place. Follows all commands. No foca
[2023-11-20 23:07] VITALS: BP 116/63; PULSE 78; RESP 22; O2SAT 95
--- NOTE | 2023-11-20 23:30 | PC.NURSE ---
Pt port has been approved for use by Dr. Wolfe.
--- NOTE | 2023-11-20 23:33 | ECG_ITS ---
SEE SCANNED COPY FOR CONFIRMED REPORT MTDD
[2023-11-21] VITALS (31 sets, daily range): BP systolic 113–149; BP diastolic 59–89; PULSE 76–132; RESP 16–36; TEMP 36.4–37; O2SAT 86–100; BMI 17.6
[2023-11-21 02:03] LABS: Troponin I < 0.012 ng/mL (0.000-0.034)
--- NOTE | 2023-11-21 05:33 | ECG_ITS ---
SEE SCANNED COPY FOR CONFIRMED REPORT MTDD
[2023-11-21] MEDS: SODIUM CHLORIDE 0.9% IV 1,000 ML 999 ML IV CONT (05:50)
--- NOTE | 2023-11-21 08:31 | PM.IMHP ---
H&P: HPI History of Present Illness Date/Time: 11/21/23 08:31 Chief Complaint: Respiratory distress Narrative: This is a 73-year-old male patient admitted to the hospital for respiratory distress. Patient has a history of lung cancer undergoing treatment for the last 7 years with Oncology at [facility] in [facility]. Patient had a chemotherapy regimen changed in July is receiving treatment every 2 weeks, last treatment was supposed to be 1 week ago but patient was hospitalized at that time with dyspnea and pneumonia. Prior to recent hospitalization patient did not require oxygen therapy. He had to be admitted to the hospital and treated for pneumonia requiring oxygen 3 liters/minute at rest, 4 L with activity and 5 L while sleeping. Patient also experiencing fatigue from this hospitalization so he was discharged to [facility] for therapy. There was concern he was dealing with aspiration pneumonia so speech therapy had required thickened liquids which patient is not tolerating. Speech therapy yesterday liberalized to thin liquids after evaluation. Family has spoken with [place] palliative care with plans to return home after hospitalization for recurrent respiratory distress and potentially worsened pneumonia. At this time hospice care and comfort measures have not been instituted because patient was doing so well prior to a couple weeks ago. Patient and family are agreeable to escalated antibiotic dosing, BiPAP if needed for respiratory distress. Chest x-ray obtained in the emergency department shows likely worsening of combination of malignant disease, pneumonia and treatment related lung changes. Patient had a recent CTA that showed no PE. Patient complains of significant weakness and dyspnea otherwise no significant pain. Review of Systems Review of Systems: All systems reviewed & are unremarkable except as noted in HPI and below PMFSH Past Medical History Medical History C. difficile diarrhea Chronic obstructive pulmonary disease Duodenal ulcer Dyspnea and respiratory abnormalities Gastroesophageal reflux disease Oropharyngeal dysphagia Small cell lung cancer Originally diagnosed in February 2017. Patient of Dr. Prabhakar. Tobacco abuse Urinary retention Surgical History Surgical History History of arthroscopy of knee Family History Family History Sibling Colon cancer Bladder cancer Lung cancer Grandparent No problems noted. Father Cancer of kidney Social History Social History Social History: Surrogate medical decision maker: Alma Delia Menon, spouse. Code status: Full code. Smoking packs per day: 1.5 Smoking cigarettes per day: 30.0 Years smoked: 50 Smoking pack-years: 75.00 Smoking status: Former smoker Tobacco type: cigarettes Second hand tobacco smoke exposure: No Additional smoking assessment comments: advised patient has reduced cigarette usage to 2 cigarettes/day Alcohol intake: former Substance use type: does not use Do You Feel Safe in your Home?: Yes Lack of Transportation: No Lack of Food: Never True Current Housing: I Have Housing Concerned About Future Housing: No Difficulty Paying Gas/Electric Bills: No Difficulty Paying for Meds: No Currently Unemployed: No Education: High School Diploma/GED Difficulty w/ Childcare or Family Care: No Living arrangements: with family Spiritual care concerns: No Meds Home Medications and Allergies Home Medications Medication Instructions Recorded Confirmed Type polyethylene glycol 3350 17 gram 17 gm PO DAILY PRN constipation 03/22/20 11/21/23 Rx oral powder packet (Miralax) #10 ea ondansetron HCl 8 mg tablet 8 mg PO Q8H PRN nausea and 08/30/22 11/21/23 Rx
--- NOTE | 2023-11-21 08:32 | ADMGEN ---
This patient, Tom Menon, was admitted to IMU Room 201-01at 0739. Patient/family oriented to hospital policies and general routines including ID bracelet, bed and alarms, visiting hours, pain management, procedures, bathroom and other care routines, personal items, smoking policy, room service/diet, and visiting hours. Information on how to activate the Rapid Response Team has been discussed. Patient/Family are encouraged to report perceived risks to care and to ask questions if they do not understand what they are told or what they should do.
--- NOTE | 2023-11-21 08:46 | PCRCNOTE ---
RT attempted first ABG stick, patient asked RT to remove needle from arm, RT asked patient if she could attempt again and patient stated no more blood sticks. Patient refused collection of ABG at this time 0846.
[2023-11-21] MEDS: NICOTINE (*PBKC) 14 MG PATCH 1 PATCH TRANSDERM (09:12)
[2023-11-21] MEDS: ENOXAPARIN 40 MG/0.4 ML SYRINGE SUB-Q (09:12)
[2023-11-21] MEDS: MEGESTROL ACETATE (*CHEMO) 40 MG TABLET PO ×3 (09:13→17:23)
[2023-11-21] MEDS: SACCHAROMYCES BOULARDII 250 MG CAPSULE PO ×3 (09:13→17:23)
[2023-11-21] MEDS: carvediloL 6.25 MG TABLET PO ×2 (09:13→20:13)
[2023-11-21] MEDS: KCL 40 MEQ/WATER 100 ML 100 ML 25 ML IVPB (09:33)
[2023-11-21] MEDS: CEFEPIME 2 GM/NS 50 ML 2 GM/50 ML BAG IVPB ×2 (10:59→20:14)
[2023-11-21] MEDS: DOXYCYCLINE 100 MG/NS 100 ML 100 MG/100 ML BAG IVPB ×2 (11:34→21:52)
[2023-11-21] MEDS: IPRATROPIUM 0.5 MG/ALBUTEROL SULFATE 2.5 MG AMPUL.NEB 3 ML NEBULIZE ×3 (11:35→20:25)
[2023-11-21] MEDS: methylPREDNISolone SOD SUCC 125 MG VIAL 40 MG IV PUSH (12:24)
[2023-11-21 12:56] LABS: MRSA (PCR) NOT DETECTED (NOT DETECTE)
[2023-11-21] MEDS: LACTATED RINGERS 1,000 ML 50 ML IV CONT (13:23)
[2023-11-21] MEDS: CENTRAL LINE FLUSH 10 ML IV PUSH ×2 (14:13→20:15)
[2023-11-21] MEDS: clonazePAM (*CRX) 0.25 MG TABLET PO (15:08)
--- NOTE | 2023-11-21 15:13 | P.CDI_ITS ---
CDI Query Clarification Request BMI 17.7 Nutritional Diagnostic Statement: Severe protein calorie malnutrition related to chronic disease (lung cancer) as evidenced by a documented -20% wt loss x 1 year, po intake of less than 75% of energy needs for greater than 1 month, and NFPE findings for severe subcutaneous fat loss (cheeks, biceps) and severe muscle wasting (samaritan, clavicle, shoulder, thigh, knee, calf). Please refer to comprehensive nutrition assessment for further information. Please specify the severity of protein calorie malnutrition if known: * Mild * Moderate * Severe * Other/Unknown <DAYNA Gomez - Last Filed: 11/21/23 15:17> Clarified Diagnosis Clarified Diagnosis: Severe protein calorie malnutrition related to chronic disease (lung cancer) as evidenced by a documented -20% wt loss x 1 year, po intake of less than 75% of energy needs for greater than 1 month, and NFPE findings for severe subcutaneous fat loss (cheeks, biceps) and severe muscle wasting (samaritan, clavicle, shoulder, thigh, knee, calf). <Robi Arias APRN - Last Filed: 11/21/23 15:26>
[2023-11-21] MEDS: HYDROCORTISONE SODIUM SUCCINATE 100 MG/2 ML VIAL 50 MG IV PUSH ×2 (17:23→23:00)
[2023-11-21] MEDS: SERTRALINE HCL 25 MG TABLET PO (20:13)
[2023-11-22] VITALS (33 sets, daily range): BP systolic 116–143; BP diastolic 59–80; PULSE 75–137; RESP 20–28; TEMP 36.1–36.6; O2SAT 94–100
[2023-11-22] MEDS: IPRATROPIUM 0.5 MG/ALBUTEROL SULFATE 2.5 MG AMPUL.NEB 3 ML NEBULIZE ×6 (00:05→20:25)
[2023-11-22] MEDS: CENTRAL LINE FLUSH 10 ML IV PUSH ×3 (05:20→21:15)
[2023-11-22] MEDS: HYDROCORTISONE SODIUM SUCCINATE 100 MG/2 ML VIAL 50 MG IV PUSH ×3 (05:21→18:22)
[2023-11-22 05:41] LABS: Basophils Percent Auto 0.3 % (0.2-1.2); Hematocrit 31.3 % (42.0-52.0); Hemoglobin 9.8 g/dL (14.0-18.0); Immature Granulocyte Absolute 0.15 K/mm3 (0.00-0.031); Immature Granulocyte Percent A 1.7 % (0-0.5); Lymphocytes Absolute Auto 0.93 K/mm3 (0.9-3.2); Lymphocytes Percent Auto 10.3 % (18.3-44.2); Mean Corpuscular HGB Conc 31.3 g/dl (32-36); Mean Corpuscular Hemoglobin 32.3 pg (26-34); Mean Corpuscular Volume 103.3 fl (80-100); Mean Platelet Volume 10.5 fl (7.4-10.4); Monocytes Absolute Auto 0.4 K/mm3 (0.1-0.6); Neutrophils Absolute Auto 7.5 K/mm3 (1.3-6.7); Neutrophils Percent Auto 83.7 % (45.5-73.1); Platelet Count Result 193 k/mm3 (150-375); Red Blood Count 3.03 M/mm3 (4.6-6.20); Red Cell Distribution Width 15.7 % (11.5-14.5)
[2023-11-22 05:52] LABS: Alanine Aminotransferase 21 U/L (6-50); Albumin Level 2.7 g/dL (3.5-5.1); Alkaline Phosphatase 190 U/L (38-126); Anion Gap 3 mmol/L (4-12); Aspartate Amino Transferase 37 U/L (17-59); Bilirubin,Total 0.6 mg/dL (0.2-1.3); Blood Urea Nitrogen 22 mg/dL (9-20); Carbon Dioxide 29 mmol/L (22-30); Chloride 105 mmol/L (98-107); Estimated CRCL calculation 53 ml/min; Estimated Glomerular Filt Rate > 60; Glucose 95 mg/dL (65-110); Magnesium 1.8 mg/dL (1.6-2.3); Potassium 3.7 mmol/L (3.4-5.0); Sodium 137 mmol/L (137-145)
[2023-11-22] MEDS: MEGESTROL ACETATE (*CHEMO) 40 MG TABLET PO (09:15)
[2023-11-22] MEDS: CEFEPIME 2 GM/NS 50 ML 2 GM/50 ML BAG IVPB (09:15)
[2023-11-22] MEDS: SACCHAROMYCES BOULARDII 250 MG CAPSULE PO (09:15)
[2023-11-22] MEDS: NICOTINE (*PBKC) 14 MG PATCH 1 PATCH TRANSDERM (09:15)
[2023-11-22] MEDS: ENOXAPARIN 40 MG/0.4 ML SYRINGE SUB-Q (09:15)
[2023-11-22] MEDS: carvediloL 6.25 MG TABLET PO ×2 (09:25→21:14)
[2023-11-22] MEDS: clonazePAM (*CRX) 0.25 MG TABLET PO (09:25)
[2023-11-22] MEDS: DOXYCYCLINE 100 MG/NS 100 ML 100 MG/100 ML BAG IVPB (10:36)
--- NOTE | 2023-11-22 11:18 | PM.IMPN ---
Progress Note: A&P Assessment and Plan (1) Acute hypoxic respiratory failure: Code(s): J96.01 - Acute respiratory failure with hypoxia Status: Acute Assessment and Plan: 11/20: -DNR status, family in contact with palliative care but not interested in hospice as patient states he is not done with his cancer treatments yet -Required oxygen 15 LPM in ER, titrated down to 5 LPM NC on arrival to floor -Moderate respiratory distress noted on exam -CXR with worsened findings likely combination of pneumonia, metastasis and lung changes from cancer treatment -No PE on CTA last week, will repeat this afternoon -Patient refused ABG today, will use BiPAP for hypoxia/work of breathing if needed 11/21: Attempted BiPAP last night but this did not help patient's work of breathing and he did not want to try again -patient has now indicating that he does not want to pursue further treatment and wants to leave AMA -consult pulmonology to see if we could provide some patient symptom relief while attempting to treat pneumonia per family wishes (2) Severe protein-calorie malnutrition: Code(s): E43 - Unspecified severe protein-calorie malnutrition Status: Acute Assessment and Plan: 11/20: Severe protein calorie malnutrition related to chronic disease (lung cancer) as evidenced by a documented -20% wt loss x 1 year, po intake of less than 75% of energy needs for greater than 1 month, and NFPE findings for severe subcutaneous fat loss (cheeks, biceps) and severe muscle wasting (mandaen, clavicle, shoulder, thigh, knee, calf). (3) Small cell lung cancer: Code(s): C34.90 - Malignant neoplasm of unspecified part of unspecified bronchus or lung Status: Acute Assessment and Plan: 11/20: -CXR indicates worsening metastasis 11/21: CTA no PE. CT evidence worsening metastasis confirms chest x-ray findings from yesterday (4) Cancer cachexia: Code(s): R64 - Cachexia Status: Acute Assessment and Plan: See #2 (5) Hypokalemia: Code(s): E87.6 - Hypokalemia Status: Acute Assessment and Plan: 11/20: Potassium 3.3 on ER labs. Ordered IV potassium replacement 40 mEq through central line/port. Will recheck with daily labs. 11/21: Potassium 3.7 on morning labs. (6) Acute respiratory distress: Code(s): R06.03 - Acute respiratory distress Status: Acute Assessment and Plan: See #1 Plan Discuss with family when they get to the day hospital regarding further treatment verses discharge on hospice instead of palliative care. In the meantime consult pulmonology to see if we can provide some symptom relief for the patient regarding his dyspnea and increased work of breathing. Time Spent With Patient Time with patient: Greater than 35 minutes Subjective Date/time seen: 11/22/23 08:18 Interval history: Patient seen early this morning states he cannot eat his food or drink his water because it causes coughing and choking. Patient is very angry and demanding to go home. Allowed patient to vent his frustrations and sat with him while trying to figure out how we can ease his discomfort and continue to treat his underlying pneumonia. Patient reports that the BiPAP that we tried yesterday did not seem to help him. His oxygen use has been titrated down by respiratory/nursing staff but is work of breathing and subjective sensation of dyspnea is overall unchanged. Yesterday patient had stated that he was not receiving chemotherapy fighting his lung cancer. Today patient is indicating that he would prefer to go home and be around people that he loves. At this time patient does not any equipment at home for oxygen use. Will plan to discuss with patient's family his change of direction once family arrives to the hospital. In the meantime, will plan to discuss case with Pulmonology to see what options may be available for patient comfort due to work of breathing. Review of Systems
[2023-11-22] MEDS: LACTATED RINGERS 1,000 ML 50 ML IV CONT (14:00)
--- NOTE | 2023-11-22 14:47 | PM.CNPUL ---
Assessment and Plan Assessment and plan (1) Acute respiratory distress: Code(s): R06.03 - Acute respiratory distress Status: Acute Assessment and Plan: Patient with metastatic small cell cancer being treated by Oncology in [place] status post loop her neck to Surendra on 08/22/2023 this was discontinued per the and started on aero neck T can on 09/18, 10/01, 10/15 and 10/29. Patient now with progressive respiratory failure status post admission for pneumonia treated with ceftriaxone, ampicillin and azithromycin without significant improvement and readmitted to the hospital on 11/20/[address] angiogram demonstrating worsening consolidation in the right lower lobe with worsening ground-glass opacities right upper lobe and left lower lobe. He is unchanged suprahilar left consolidations unchanged bulky mediastinal adenopathy. Patient has increased work of breathing, he has declined a blood gas and BiPAP was attempted but he said it did not help him and he does not wish to try it again. The patient initially told me he once no additional medications, no use of BiPAP, he is DNR and confirmed no intubation, and no new antibiotics. He tells me he wished to go home with hospice care and that his had Already initiated while hospice care. I spoke to the on the phone and explained the situation and she told me she would come to the bedside and speak with the patient. Plan: If the patient wishes for continued care recommend transfer to higher level of care facility with access to pulmonary teams that can safely do a bronchoscopy, and with inpatient oncology that has access to his medicines and experience with side effects from his current chemotherapeutic regimens. The patient family prefer the [facility] system. At this time the patient declines being transferred to higher level of care. Irinotecan has been described to cause interstitial lung disease, NSIP and pneumonitis and treatment is steroids. Patient currently is on steroids per severe community-acquired pneumonia protocol at [facility] 50 Q 6. Will continue for now. I will check a chest x-ray in the morning. Repeat COVID, influenza RSV swab. Extended respiratory pathogen panel to [facility]. Change antibiotics to meropenem and levofloxacin. Noninvasive ventilation with the AVAPS mode for his increased work of breathing. He said he might try this if needed. Patient declines blood gas. Patient and wish to speak to a hospice team to see what options they have her getting the patient home. We have called the hospice team but they have left for the day. Discussed with Robert Arias. Discussion with on the phone and then discussion with at the daughter at the bedside. Will follow with you. History of Present Illness History of Present Illness Consult date: 11/22/23 Chief complaint: Hypoxic Respiratory Failure/DNR/Lung Cancer Narrative: 11/22/2023: This is a new pulmonary consult for work of breathing and worsening pneumonia. 73-year-old man with a history of small cell cancer for 7 years treated by oncologist Dr. Jeison Bazzi at [facility] in [place]. I have none of the records. 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 The patient tells me he receives chemotherapy but does not know the name of the chemotherapy. His last treatment was a few sessions ago. I called the and she tells me that he received lubrinectedine on 08/22/2023. That was stopped and Irinotecan was started on 09/18, any receive this every 2 weeks on 10/01, 10/15 and . His next scheduled appointment and treatment was canceled because he was in the hospital. Patient was admitted to [facility] on 11/11/2023 and discharged to [facility] on 11/18/2023. CTA scan at that time demonstrated apical predominant ce
[2023-11-22] MEDS: levoFLOXacin 750 MG/D5W 150 ML 750 MG/150 ML BAG 100 MG IVPB (16:20)
[2023-11-22] MEDS: clonazePAM (*CRX) 0.5 MG TABLET PO ×2 (16:20→22:32)
[2023-11-22] MEDS: MEROPENEM 1 GM/NS 100 ML 1 GM/100 ML BAG IVPB (18:22)
[2023-11-22] MEDS: SERTRALINE HCL 25 MG TABLET PO (21:14)
[2023-11-22 22:35] LABS: Influenza A QL RT-PCR Negative (Negative); Influenza B QL RT-PCR Negative (Negative); RSV RNA, RT-PCR Negative (Negative); SARS-CoV-2 RNA PCR Negative (Negative)
[2023-11-23] VITALS (33 sets, daily range): BP systolic 125–148; BP diastolic 66–77; PULSE 73–127; RESP 16–28; TEMP 36.3–36.7; O2SAT 91–99
[2023-11-23] MEDS: IPRATROPIUM 0.5 MG/ALBUTEROL SULFATE 2.5 MG AMPUL.NEB 3 ML NEBULIZE ×7 (00:35→23:56)
[2023-11-23] MEDS: HYDROCORTISONE SODIUM SUCCINATE 100 MG/2 ML VIAL 50 MG IV PUSH ×5 (00:47→23:21)
[2023-11-23] MEDS: MEROPENEM 1 GM/NS 100 ML 1 GM/100 ML BAG IVPB ×2 (02:07→19:03)
[2023-11-23] MEDS: CENTRAL LINE FLUSH 10 ML IV PUSH ×3 (06:21→21:18)
[2023-11-23 06:37] LABS: Basophils Percent Auto 0.1 % (0.2-1.2); Hematocrit 32.5 % (42.0-52.0); Hemoglobin 10.4 g/dL (14.0-18.0); Immature Granulocyte Absolute 0.16 K/mm3 (0.00-0.031); Immature Granulocyte Percent A 1.8 % (0-0.5); Lymphocytes Absolute Auto 0.81 K/mm3 (0.9-3.2); Mean Corpuscular Hemoglobin 32.2 pg (26-34); Mean Corpuscular Volume 100.6 fl (80-100); Mean Platelet Volume 9.9 fl (7.4-10.4); Monocytes Absolute Auto 0.4 K/mm3 (0.1-0.6); Monocytes Percent Auto 4.8 % (2.6-8.5); Neutrophils Absolute Auto 7.6 K/mm3 (1.3-6.7); Neutrophils Percent Auto 84.3 % (45.5-73.1); Nucleated Red Blood Cells Perc 0.2 % (0.0-0.2); Platelet Count Result 177 k/mm3 (150-375); Red Blood Count 3.23 M/mm3 (4.6-6.20); Red Cell Distribution Width 15.7 % (11.5-14.5)
[2023-11-23 06:51] LABS: Alanine Aminotransferase 23 U/L (6-50); Albumin Level 2.7 g/dL (3.5-5.1); Alkaline Phosphatase 201 U/L (38-126); Anion Gap 1 mmol/L (4-12); Aspartate Amino Transferase 36 U/L (17-59); Bilirubin,Total 0.7 mg/dL (0.2-1.3); Blood Urea Nitrogen 27 mg/dL (9-20); Calcium 9.1 mg/dL (8.4-10.2); Carbon Dioxide 31 mmol/L (22-30); Chloride 105 mmol/L (98-107); Estimated CRCL calculation 54 ml/min; Estimated Glomerular Filt Rate > 60; Glucose 102 mg/dL (65-110); Magnesium 1.8 mg/dL (1.6-2.3); Potassium 3.3 mmol/L (3.4-5.0); Sodium 137 mmol/L (137-145)
[2023-11-23] MEDS: carvediloL 6.25 MG TABLET PO ×2 (09:24→21:06)
[2023-11-23] MEDS: clonazePAM (*CRX) 0.5 MG TABLET PO ×2 (09:24→21:06)
[2023-11-23] MEDS: KCL 40 MEQ/WATER 100 ML 100 ML 25 ML IVPB (09:33)
--- NOTE | 2023-11-23 09:48 | PCSTNOTE ---
Patient has order for modified barium swallow study, which he is refusing. He states that he it won't be helpful for him and he doesn't want to do it. Nurse Menard informed and will convey to physician.
--- NOTE | 2023-11-23 10:29 | PM.PNPUL ---
Progress Note: A&P Assessment and Plan (1) Acute respiratory distress: Code(s): R06.03 - Acute respiratory distress Status: Acute Assessment and Plan: Patient with metastatic small cell cancer being treated by Oncology in [place] status post loop her neck to Surendra on 08/22/2023 this was discontinued per the and started on aero neck T can on 09/18, 10/01, 10/15 and 10/29. Patient now with progressive respiratory failure status post admission for pneumonia treated with ceftriaxone, ampicillin and azithromycin without significant improvement and readmitted to the hospital on 11/20/[address] angiogram demonstrating worsening consolidation in the right lower lobe with worsening ground-glass opacities right upper lobe and left lower lobe. He is unchanged suprahilar left consolidations unchanged bulky mediastinal adenopathy. Patient has increased work of breathing, he has declined a blood gas and BiPAP was attempted but he said it did not help him and he does not wish to try it again. The patient initially told me he once no additional medications, no use of BiPAP, he is DNR and confirmed no intubation, and no new antibiotics. He tells me he wished to go home with hospice care and that his had Already initiated while hospice care. I spoke to the on the phone and explained the situation and she told me she would come to the bedside and speak with the patient. Plan: If the patient wishes for continued care recommend transfer to higher level of care facility with access to pulmonary teams that can safely do a bronchoscopy, and with inpatient oncology that has access to his medicines and experience with side effects from his current chemotherapeutic regimens. The patient family prefer the [facility] system. At this time the patient declines being transferred to higher level of care. Irinotecan has been described to cause interstitial lung disease, NSIP and pneumonitis and treatment is steroids. Patient currently is on steroids per severe community-acquired pneumonia protocol at [facility] 50 Q 6. Will continue for now. I will check a chest x-ray in the morning. Repeat COVID, influenza RSV swab. Extended respiratory pathogen panel to [facility]. Change antibiotics to meropenem and levofloxacin. Noninvasive ventilation with the AVAPS mode for his increased work of breathing. He said he might try this if needed. Patient declines blood gas. Patient and wish to speak to a hospice team to see what options they have her getting the patient home. We have called the hospice team but they have left for the day. Discussed with Robert Arias. Discussion with on the phone and then discussion with at the daughter at the bedside. 11/23/23: the patient states he is breathing a little bit better. He is in less respiratory distress than he was yesterday afternoon. He denied fever, cough, phlegm. He is very weak and debilitated and has a very weak cough. Currently is on 2 L nasal cannula saturations 96%. White blood cell count 9.0, creatinine 0.8. The patient did not tolerate AVAPS last night. I placed the patient on AVAPS and adjusted the settings to comfort resulting in a respiratory rate of 14, tidal volume 450, EPAP 5, minimal inspiratory pressure 6, maximal inspiratory pressure 25, inspiratory time 1.2, rise of 5 which is are slowest, 32% FiO2. the patient said this was comfortable and he would try to wear this to see if he could get used to it. 20 minutes later I returned to the room and he said he could not tolerate The noninvasive ventilation. Plan: Repeat COVID, influenza, RSV RT PCR studies negative. Respiratory pathogen panel pending. Continue meropenem and levofloxacin both day 2. patient is on Solu-Cortef 50 Q 6 for severe pneumonia protocol. this is an equivalent of prednisone 1 milligram/kilos which may be treating an interstitial lung disease, NSIP and pneumonitis. the patient can attempt
--- NOTE | 2023-11-23 10:41 | PM.IMPN ---
Progress Note: A&P Assessment and Plan (1) Acute hypoxic respiratory failure: Code(s): J96.01 - Acute respiratory failure with hypoxia Status: Acute Assessment and Plan: 11/20: -DNR status, family in contact with palliative care but not interested in hospice as patient states he is not done with his cancer treatments yet -Required oxygen 15 LPM in ER, titrated down to 5 LPM NC on arrival to floor -Moderate respiratory distress noted on exam -CXR with worsened findings likely combination of pneumonia, metastasis and lung changes from cancer treatment -No PE on CTA last week, will repeat this afternoon -Patient refused ABG today, will use BiPAP for hypoxia/work of breathing if needed 11/21: Attempted BiPAP last night but this did not help patient's work of breathing and he did not want to try again -patient has now indicating that he does not want to pursue further treatment and wants to leave AMA -consult pulmonology to see if we could provide some patient symptom relief while attempting to treat pneumonia per family wishes 11/22: Pulmonology made changes to AVAPS settings but patient still refuses to wear it. Saturation ok on 2 liters/minute but work of breathing still labored, possible increased pCO2 as evidenced by lethargy but patient still refusing ABG stick. In fact, he is refusing nearly all ordered tests/treatments and has told multiple staff members he doesn't want anything else to prolong his life. (2) Severe protein-calorie malnutrition: Code(s): E43 - Unspecified severe protein-calorie malnutrition Status: Acute Assessment and Plan: 11/20: Severe protein calorie malnutrition related to chronic disease (lung cancer) as evidenced by a documented -20% wt loss x 1 year, po intake of less than 75% of energy needs for greater than 1 month, and NFPE findings for severe subcutaneous fat loss (cheeks, biceps) and severe muscle wasting (tenriism, clavicle, shoulder, thigh, knee, calf). (3) Small cell lung cancer: Code(s): C34.90 - Malignant neoplasm of unspecified part of unspecified bronchus or lung Status: Acute Assessment and Plan: 11/20: -CXR indicates worsening metastasis 11/21: CTA no PE. CT evidence worsening metastasis confirms chest x-ray findings from yesterday (4) Cancer cachexia: Code(s): R64 - Cachexia Status: Acute Assessment and Plan: See #2 (5) Hypokalemia: Code(s): E87.6 - Hypokalemia Status: Acute Assessment and Plan: 11/20: Potassium 3.3 on ER labs. Ordered IV potassium replacement 40 mEq through central line/port. Will recheck with daily labs. 11/21: Potassium 3.7 on morning labs. (6) Acute respiratory distress: Code(s): R06.03 - Acute respiratory distress Status: Acute Assessment and Plan: See #1 (7) Pneumonia: Code(s): J18.9 - Pneumonia, unspecified organism Status: Acute Assessment and Plan: On broad-spectrum antibiotics including meropenem and Levaquin. On IV hydrocortisone for severe pneumonia / potential chemotherapy-induced pneumonitis. Plan -Family not in agreement with full comfort care or hospice but also not insisting on invasive procedures such as intubation/feeding tube placement. -Will reach out to Oncologist office tomorrow. Time Spent With Patient Time with patient: Greater than 35 minutes Subjective Date/time seen: 11/23/23 10:41 Interval history: This afternoon patient will open his eyes and attempt to speak a few words at a time, still refusing AVAPS mask and refusing barium swallow. Family assisted him eating a few bites of food. IV fluids continue. IV antibiotics and steroids continue. Patient's spoke with [facility] and is not ready to consent to hospice care. Patient has expressed to multiple staff members that he does not want any further treatments or attempts to prolong his life. He wants to return home on hospice. It appears the patie
[2023-11-23] MEDS: levoFLOXacin 750 MG/D5W 150 ML 750 MG/150 ML BAG 100 MG IVPB (16:45)
[2023-11-23] MEDS: MORPHINE SULFATE (*CRX) 2 MG/ML INJ IV PUSH (16:51)
[2023-11-23] MEDS: SERTRALINE HCL 25 MG TABLET PO (21:06)
[2023-11-23] MEDS: LACTATED RINGERS 1,000 ML 50 ML IV CONT (21:17)
[2023-11-24] VITALS (15 sets, daily range): BP systolic 112–129; BP diastolic 61–68; PULSE 77–98; RESP 16–33; TEMP 36–36.7; O2SAT 80–100
[2023-11-24] MEDS: MEROPENEM 1 GM/NS 100 ML 1 GM/100 ML BAG IVPB ×2 (01:11→09:22)
[2023-11-24] MEDS: MORPHINE SULFATE (*CRX) 2 MG/ML INJ IV PUSH (04:04)
[2023-11-24] MEDS: clonazePAM (*CRX) 0.5 MG TABLET PO (04:07)
[2023-11-24 04:27] LABS: Basophils Percent Auto 0.1 % (0.2-1.2); Hematocrit 33.8 % (42.0-52.0); Hemoglobin 10.9 g/dL (14.0-18.0); Immature Granulocyte Absolute 0.15 K/mm3 (0.00-0.031); Immature Granulocyte Percent A 1.5 % (0-0.5); Lymphocytes Absolute Auto 0.74 K/mm3 (0.9-3.2); Lymphocytes Percent Auto 7.2 % (18.3-44.2); Mean Corpuscular HGB Conc 32.2 g/dl (32-36); Mean Corpuscular Hemoglobin 32.4 pg (26-34); Mean Corpuscular Volume 100.6 fl (80-100); Mean Platelet Volume 10.5 fl (7.4-10.4); Monocytes Absolute Auto 0.6 K/mm3 (0.1-0.6); Monocytes Percent Auto 5.3 % (2.6-8.5); Neutrophils Absolute Auto 8.9 K/mm3 (1.3-6.7); Neutrophils Percent Auto 85.9 % (45.5-73.1); Platelet Count Result 172 k/mm3 (150-375); Red Blood Count 3.36 M/mm3 (4.6-6.20); Red Cell Distribution Width 15.6 % (11.5-14.5); White Blood Count 10.3 K/mm3 (4.5-10.0)
[2023-11-24 04:38] LABS: Alanine Aminotransferase 24 U/L (6-50); Albumin Level 2.7 g/dL (3.5-5.1); Alkaline Phosphatase 189 U/L (38-126); Anion Gap 5 mmol/L (4-12); Aspartate Amino Transferase 44 U/L (17-59); Bilirubin,Total 0.9 mg/dL (0.2-1.3); Blood Urea Nitrogen 33 mg/dL (9-20); Calcium 9.5 mg/dL (8.4-10.2); Carbon Dioxide 29 mmol/L (22-30); Chloride 107 mmol/L (98-107); Estimated CRCL calculation 64 ml/min; Estimated Glomerular Filt Rate > 60; Glucose 103 mg/dL (65-110); Magnesium 1.9 mg/dL (1.6-2.3); Potassium 3.8 mmol/L (3.4-5.0); Sodium 141 mmol/L (137-145)
[2023-11-24] MEDS: IPRATROPIUM 0.5 MG/ALBUTEROL SULFATE 2.5 MG AMPUL.NEB 3 ML NEBULIZE ×3 (04:46→13:20)
[2023-11-24] MEDS: HYDROCORTISONE SODIUM SUCCINATE 100 MG/2 ML VIAL 50 MG IV PUSH (06:18)
[2023-11-24] MEDS: CENTRAL LINE FLUSH 10 ML IV PUSH (06:19)
--- NOTE | 2023-11-24 08:15 | PCSTNOTE ---
MBS order discontinued at this time due to patient refusal and having a MBS several weeks ago here.
[2023-11-24] MEDS: ENOXAPARIN 40 MG/0.4 ML SYRINGE SUB-Q (09:22)
[2023-11-24] MEDS: NICOTINE (*PBKC) 14 MG PATCH 1 PATCH TRANSDERM (09:34)
--- NOTE | 2023-11-24 11:23 | PCNFU ---
Nutrition Follow-Up Complete: Severe protein calorie malnutrition related to chronic disease (lung cancer) as evidenced by a documented -20% wt loss x 1 year, po intake of less than 75% of energy needs for greater than 1 month, and NFPE findings for severe subcutaneous fat loss (cheeks, biceps) and severe muscle wasting (worship, clavicle, shoulder, thigh, knee, calf). Goal:PO intake 75% of meals and supplements Pt is not progressing towards goal, no po intake of food or liquids. Pt current nutrition is Regular, Ensure Enlive TID. Nutrition recommendation: encourage po intake Last recorded weight is 56 kg. Bowel Motility: +BM 11/22 Labs Reviewed: Hgb:10.9, HCt:33.8, Alb:2.7, BUN:33 Meds Noted: megace, lovenox, solumedrol, reglan, zofran Skin: no skin issues noted Additional Notes: Pt continues on a regular diet with no intake. Nursing report would not arouse to eat or drink. Noted discussion on palliative care. Encourage intake when and if possible. Monitor intake, wt, labs. Follow up in 5 days.
--- NOTE | 2023-11-24 12:34 | PM.IMPN ---
Progress Note: A&P Assessment and Plan (1) Acute hypoxic respiratory failure: Code(s): J96.01 - Acute respiratory failure with hypoxia Status: Acute Assessment and Plan: 11/20: -DNR status, family in contact with palliative care but not interested in hospice as patient states he is not done with his cancer treatments yet -Required oxygen 15 LPM in ER, titrated down to 5 LPM NC on arrival to floor -Moderate respiratory distress noted on exam -CXR with worsened findings likely combination of pneumonia, metastasis and lung changes from cancer treatment -No PE on CTA last week, will repeat this afternoon -Patient refused ABG today, will use BiPAP for hypoxia/work of breathing if needed 11/21: Attempted BiPAP last night but this did not help patient's work of breathing and he did not want to try again -patient has now indicating that he does not want to pursue further treatment and wants to leave AMA -consult pulmonology to see if we could provide some patient symptom relief while attempting to treat pneumonia per family wishes 11/22: Pulmonology made changes to AVAPS settings but patient still refuses to wear it. Saturation ok on 2 liters/minute but work of breathing still labored, possible increased pCO2 as evidenced by lethargy but patient still refusing ABG stick. In fact, he is refusing nearly all ordered tests/treatments and has told multiple staff members he doesn't want anything else to prolong his life. 11/23: remains on nasal cannula, poor prognosis as further re-emphasized by pulmonology, family discussing with [facility]. (2) Severe protein-calorie malnutrition: Code(s): E43 - Unspecified severe protein-calorie malnutrition Status: Acute Assessment and Plan: 11/20: Severe protein calorie malnutrition related to chronic disease (lung cancer) as evidenced by a documented -20% wt loss x 1 year, po intake of less than 75% of energy needs for greater than 1 month, and NFPE findings for severe subcutaneous fat loss (cheeks, biceps) and severe muscle wasting (yazidi, clavicle, shoulder, thigh, knee, calf). 11/23: Patient unable to eat or drink on his own. IV fluids have continued up to this point. Patient had previously refused feeding tube. (3) Small cell lung cancer: Code(s): C34.90 - Malignant neoplasm of unspecified part of unspecified bronchus or lung Status: Acute Assessment and Plan: 11/20: -CXR indicates worsening metastasis 11/21: CTA no PE. CT evidence worsening metastasis confirms chest x-ray findings from yesterday (4) Cancer cachexia: Code(s): R64 - Cachexia Status: Acute Assessment and Plan: See #2 (5) Hypokalemia: Code(s): E87.6 - Hypokalemia Status: Acute Assessment and Plan: 11/20: Potassium 3.3 on ER labs. Ordered IV potassium replacement 40 mEq through central line/port. Will recheck with daily labs. 11/21: Potassium 3.7 on morning labs. (6) Acute respiratory distress: Code(s): R06.03 - Acute respiratory distress Status: Acute Assessment and Plan: See #1 (7) Pneumonia: Code(s): J18.9 - Pneumonia, unspecified organism Status: Acute Assessment and Plan: On broad-spectrum antibiotics including meropenem and Levaquin. On IV hydrocortisone for severe pneumonia / potential chemotherapy-induced pneumonitis. Plan - Pulmonology reinforced poor prognosis, family discussing with [facility]. Time Spent With Patient Time with patient: Greater than 35 minutes Subjective Date/time seen: 11/24/23 12:34 Interval history: Attempted to see patient today and he was very lethargic/drowsy. Still labored breathing. I asked the patient we could do anything to help him and he said no. Pulmonology saw patient and re-emphasized poor prognosis. Family is discussing with [facility]. Review of Systems Review of Systems: ROS unobtainable: Yes unobtainable due to medical condition a
--- NOTE | 2023-11-24 12:36 | P.PNPL_ITS ---
Progress Note: A&P Assessment and Plan (1) Acute respiratory distress: Code(s): R06.03 - Acute respiratory distress Status: Acute Assessment and Plan: Patient with metastatic small cell cancer being treated by Oncology in [place] status post loop her neck to [facility] on 08/22/2023 this was discontinued per the and started on aero neck T can on 09/18, 10/01, 10/15 and 10/29. Patient now with progressive respiratory failure status post admission for pneumonia treated with ceftriaxone, ampicillin and azithromycin without significant improvement and readmitted to the hospital on 11/20/[address] angiogram demonstrating worsening consolidation in the right lower lobe with worsening ground-glass opacities right upper lobe and left lower lobe. He is unchanged suprahilar left consolidations unchanged bulky mediastinal adenopathy. Patient has increased work of breathing, he has declined a blood gas and BiPAP was attempted but he said it did not help him and he does not wish to try it again. The patient initially told me he once no additional medications, no use of BiPAP, he is DNR and confirmed no intubation, and no new antibiotics. He tells me he wished to go home with hospice care and that his had Already initiated while hospice care. I spoke to the on the phone and explained the situation and she told me she would come to the bedside and speak with the patient. Plan: If the patient wishes for continued care recommend transfer to higher level of care facility with access to pulmonary teams that can safely do a bronchoscopy, and with inpatient oncology that has access to his medicines and experience with side effects from his current chemotherapeutic regimens. The patient family prefer the [facility] system. At this time the patient declines being transferred to higher level of care. Irinotecan has been described to cause interstitial lung disease, NSIP and pneumonitis and treatment is steroids. Patient currently is on steroids per severe [place]-ac[place] [facility]. Will continue for now. I will check a chest x-ray in the morning. Repeat COVID, influenza RSV swab. Extended respiratory pathogen panel to [facility]. Change antibiotics to meropenem and levofloxacin. Noninvasive ventilation with the AVAPS mode for his increased work of breathing. He said he might try this if needed. Patient declines blood gas. Patient and wish to speak to a hospice team to see what options they have her getting the patient home. We have called the hospice team but they have left for the day. Discussed with Robert Arias. Discussion with on the phone and then discussion with at the daughter at the bedside. 11/23/23: the patient states he is breathing a little bit better. He is in less respiratory distress than he was yesterday afternoon. He denied fever, cough, phlegm. He is very weak and debilitated and has a very weak cough. Currently is on 2 L nasal cannula saturations 96%. White blood cell count 9.0, creatinine 0.8. The patient did not tolerate AVAPS last night. I placed the patient on AVAPS and adjusted the settings to comfort resulting in a respiratory rate of 14, tidal volume 450, EPAP 5, minimal inspiratory pressure 6, maximal inspiratory pressure 25, inspiratory time 1.2, rise of 5 which is are slowest, 32% FiO2. the patient said this was comfortable and he would try to wear this to see if he could get used to it. 20 minutes later I returned to the room and he said he could not tolerate The noninvasive ventilation. Plan: Repeat COVID, influenza, RSV RT PCR studies negative. Respiratory pathogen panel pending. Continue meropenem and levofloxacin both day
--- NOTE | 2023-11-24 13:07 | PC.NURSE ---
Pt very lethargic. Arousable to voice. Cannot speak. Unable to swallow water or pills. Dr Rees and family at bedside. MD told family patient is in the process of dying. They wish to speak with [facility] at this time. Care caoordination informed. [facility] is at bedside
--- NOTE | 2023-11-24 18:17 | PC.NURSE ---
Pt made comfort measures and given Ativan. Pt at 1802 with family at bedside. Robert Arias notified
--- NOTE | 2023-11-25 14:16 | PM.DDS ---
Discharge Summary Date and Time Date of : 11/24/23 Time of : 18:02 Provider Pronounced By: Naheed Ferris RN and Triny Ca RN Probable Cause of Probable Cause of : pneumonia related to metastatic lung cancer Summary Hospital Course: Patient was admitted to hospital from [facility] with respiratory distress and pneumonia. Patient now DNR, recently changed from full code. Patient has been fighting metastatic lung cancer for 7 years and had a chemotherapy change a few months ago. notes that he has declined steadily over the last few months. A couple weeks ago he was admitted to the hospital on oxygen and treatment of pneumonia. He was noted to be aspirating. On this admission patient refused ABG, refused to wear BiPap. Pulmonology was consulted for AVAPS management but patient refused to wear this as well. He stopped eating and drinking. We changed antibiotics and added steroids but patient continued to decline. Family met with [facility] and was hoping to take home on palliative care initially but after declining status family amenable to comfort measures and hospice care. Patient initially did not meet [facility] hospice criteria but after IV fluids discontinued and morphine/Ativan given, patient within a couple hours. 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 Notified of : 11/24/23 Time [facility] Notified of : 18:48 Advance directives: Yes Hospice patient?: No (was planning to go home on hospice care if he survived overnight)
[2023-11-26 16:24] LABS: Adenovirus DNA Not Detected (Not Detected); Chlamydophila pneumoniae Not Detected (Not Detected); Coronavirus 229E Not Detected (Not Detected); Coronavirus HKU1 Not Detected (Not Detected); Coronavirus NL63 Not Detected (Not Detected); Coronavirus OC43 Not Detected (Not Detected); Human Metapneumovirus Not Detected (Not Detected); Human Parainfluenza Virus 1 Not Detected (Not Detected); Human Parainfluenza Virus 2 Not Detected (Not Detected); Human Parainfluenza Virus 3 Not Detected (Not Detected); Human Parainfluenza Virus 4 Not Detected (Not Detected); Human RSV B Not Detected (Not Detected); Influenza A Not Detected (Not Detected); Influenza B Not Detected (Not Detected); Mycoplasma pneumoniae Not Detected (Not Detected); Rhinovirus/Enterovirus Not Detected (Not Detected)
== END 2023-11-24 18:02 | disposition expired | DRG 193 ==
LOC: ANHED 11-21 05:50 → ANHIMU 11-21 06:48
PROVIDERS: Internal Medicine Pulmonary Disease; Admitting Provider Internal Medicine; Emergency Provider Emergency Medicine; PCP Internal Medicine; Visit Provider Nurse Practitioner
DX: J18.9 Pneumonia, unspecified organism (principal); E43 Unspecified severe protein-calorie malnutrition; J96.01 Acute respiratory failure with hypoxia; C34.90 Malignant neoplasm of unspecified part of unspecified bronchus or lung; C79.9 Secondary malignant neoplasm of unspecified site; R64 Cachexia; J44.0 Chronic obstructive pulmonary disease with (acute) lower respiratory infection; E87.6 Hypokalemia; K21.9 Gastro-esophageal reflux disease without esophagitis; R33.9 Retention of urine, unspecified; Z20.822 Contact with and (suspected) exposure to COVID-19; Z99.81 Dependence on supplemental oxygen; Z80.0 Family history of malignant neoplasm of digestive organs; Z87.11 Personal history of peptic ulcer disease; Z87.891 Personal history of nicotine dependence
CPT/HCPCS: 36415; 36600; 71045; 71275; 80053; 83735; 83880; 84484; 85025; 85610; 85730; 87633; 87637; 87641; 93005; 94002; 94003; 94640; 99285; A9270; J0692; J1642; J1650; J1720; J1956; J2185; J2270; J2919; J3480; J7030; J7120; Q9967